=== PATIENT | female | born 1975 | race African-American/Black ===

== ENCOUNTER 2017-09-15 15:49 | Emergency (ER) | payer SELFPAY ==
[2017-09-15 16:27] LABS: Bilirubin Negative (Negative); Blood, Urine Negative (Negative); Glucose, Urine (Dipstick) >=1000 mg/dL (Negative); Ketone, Urine Negative (Negative); Nitrite Negative (Negative); Protein, Urine (Dipstick) Negative (Neg-Trace); Urobilinogen 0.2 mg/dL (0.2-1.0)
[2017-09-15 16:47] LABS: #Basophils 0.1 thou/uL (0.0-0.2); #Eosinphils 0.1 thou/uL (0.0-0.7); #Lymphocytes 3.4 thou/uL (1.20-3.40); #Monocytes 0.5 thou/uL (0.11-0.59); #Neutrophils 4.2 thou/uL (1.40-6.50); %Basophils 1.7 % (0.0-1.0); %Eosinophils 1.3 % (0.0-10.0); %Monocytes 5.5 % (0.0-10.0); Hematocrit 44.9 % (36.0-47.0); Mean Platelet Volume 8.3 fL (7.4-10.4); Red Blood Cell (RBC) Count 5.02 mill/uL (4.20-5.40); White Blood Cell (WBC) Count 8.2 thou/uL (4.8-10.8)
[2017-09-15 16:50] LABS: Anion Gap 10 mmol/L (-14-95); T. Carbon Dioxide 27.1 mmol/L (1.0-85.0); pH (Venous) 7.436 (7.35-7.45); vO2 Saturation-calc 84.3 % (0.0-100.0)
[2017-09-15 17:09] LABS: ALT (SGPT) 17 U/L (8-55); AST (SGOT) 12 U/L (5-34); Alkaline Phosphatase 106 U/L (40-150); Anion Gap 13 mmol/L (10-20); BUN (Urea Nitrogen) 7 mg/dL (7.0-18.7); Bilirubin, Total 0.4 mg/dL (0.2-1.2); Calc. Creatinine Clearance 0 mL/min (70-130); Calcium 9.3 mg/dL (7.8-10.44); Carbon Dioxide 25 mmol/L (22-29); Chloride 98 mmol/L (98-107); Estimated GFR-MDRD 85; Globulin 3.1 g/dL (2.4-3.5)
[2017-09-15] MEDS ORDERED: Insulin Regular 300 UNITS/3 ML VIAL ONE (17:19)
[2017-09-15] MEDS ORDERED: Acetaminophen 500 MG TAB ONE (18:28)
== END 2017-09-15 19:25 | disposition home or self-care (01) ==
LOC: ERS 15:49
DX: E11.65 Type 2 diabetes mellitus with hyperglycemia (principal); E86.0 Dehydration; I11.0 Hypertensive heart disease with heart failure; I50.9 Heart failure, unspecified; E11.40 Type 2 diabetes mellitus with diabetic neuropathy, unspecified; G43.909 Migraine, unspecified, not intractable, without status migrainosus; F41.9 Anxiety disorder, unspecified; F31.9 Bipolar disorder, unspecified; Z79.899 Other long term (current) drug therapy; Z79.84 Long term (current) use of oral hypoglycemic drugs
CPT/HCPCS: 36416; 80053; 81003; 81025; 82010; 82330; 82803; 85025; 96360; 96372; J1815

== ENCOUNTER 2017-11-15 18:54 | Observation (INO) | payer OTHER, SELFPAY ==
[2017-11-15 19:31] LABS: #Basophils 0.1 thou/uL (0.0-0.2); #Eosinphils 0.1 thou/uL (0.0-0.7); #Lymphocytes 4.1 thou/uL (1.20-3.40); #Monocytes 0.5 thou/uL (0.11-0.59); #Neutrophils 4.1 thou/uL (1.40-6.50); %Basophils 0.7 % (0.0-1.0); %Eosinophils 1.5 % (0.0-10.0); %Lymphocytes 46.2 % (21.0-51.0); %Monocytes 6.1 % (0.0-10.0); %Neutrophils 45.4 % (42.0-75.0); Mean Corpuscular HGB CONC 32.7 g/dL (32.0-36.0); Mean Corpuscular Hemoglobin 29.8 pg (27.0-31.0); Mean Corpuscular Volume 90.9 fl (81.0-99.0); Mean Platelet Volume 8.9 fL (7.4-10.4); Platelet Count 262 thou/uL (130-400); RBC Distribution Width 13.2 % (11.5-14.5); White Blood Cell (WBC) Count 8.9 thou/uL (4.8-10.8)
[2017-11-15 19:40] LABS: Bilirubin Negative (Negative); Blood, Urine Negative (Negative); Clarity CLEAR (Clear); Glucose, Urine (Dipstick) >=1000 mg/dL (Negative); Leukocyte Negative (Negative); Nitrite Negative (Negative); Protein, Urine (Dipstick) Negative (Neg-Trace); Specific Gravity, Urine 1.044 (1.002-1.036); Urobilinogen 0.2 mg/dL (0.2-1.0)
[2017-11-15 19:40] LABS: PTT 22.5 SEC (22.9-36.1)
[2017-11-15 19:47] LABS: ALT (SGPT) 11 U/L (8-55); AST (SGOT) 8 U/L (5-34); Albumin 3.6 g/dL (3.5-5.0); Alkaline Phosphatase 84 U/L (40-150); Anion Gap 12 mmol/L (10-20); BUN (Urea Nitrogen) 6 mg/dL (7.0-18.7); Bilirubin, Total 0.3 mg/dL (0.2-1.2); CK (CPK) 75 U/L (29-168); Calc. Creatinine Clearance 0 mL/min (70-130); Calcium 8.9 mg/dL (7.8-10.44); Carbon Dioxide 23 mmol/L (22-29); Chloride 101 mmol/L (98-107); Estimated GFR-MDRD 61; Globulin 2.5 g/dL (2.4-3.5); Glucose 529 mg/dL (70-105); Lipase 20 U/L (8-78); Potassium 4.1 mmol/L (3.5-5.1); Protein, Total 6.1 g/dL (6.0-8.3); Sodium 132 mmol/L (136-145)
[2017-11-15 19:53] LABS: CKMB 0.6 ng/mL (0-6.6)
[2017-11-15] MEDS ORDERED: Insulin Regular 300 UNITS/3 ML VIAL ONE (20:01)
[2017-11-15] MEDS ORDERED: Nitroglycerin 0.4 MG TAB (25 Tab Bottle) ONE (20:40)
[2017-11-15 22:43] VITALS: BMI 40.2
[2017-11-15 23:01] LABS: Troponin I Less than 0.010 ng/mL (< 0.028)
[2017-11-15] MEDS: Sodium Chloride 0.9% 1,000 ML IV SCH (23:48)
[2017-11-16] MEDS ORDERED: Dextrose 50% Abboject 50 ML SYRINGE SLOW IVP PRN (00:11)
[2017-11-16] MEDS ORDERED: Dextrose 5% in Water 1,000 ML IV PRN (00:11)
[2017-11-16] MEDS ORDERED: Ondansetron ODT 4 MG TAB PO PRN (00:11)
[2017-11-16] MEDS ORDERED: Nitroglycerin 0.4 MG TAB (25 Tab Bottle) PO PRN (00:12)
[2017-11-16 01:17] LABS: Hemoglobin A1c 13.3 % (4.0-6.0)
[2017-11-16 01:20] LABS: Lactic Acid 1.9 mmol/L (0.5-2.2)
[2017-11-16 01:37] LABS: Troponin I Less than 0.010 ng/mL (< 0.028)
[2017-11-16] MEDS: Sodium Chloride 0.9% 1,000 ML IV SCH ×4 (01:47→20:33)
--- NOTE | 2017-11-16 03:23 | HP-2 ---
CODE STATUS: FULL. PRIMARY CARE PHYSICIAN: Awais Jesus M.D. ATTENDING: Dr. Cesia Mckee RESIDENT: Kitty Hagen M.D. CHIEF COMPLAINT: Dizziness and lightheadedness. HISTORY OF PRESENT ILLNESS: This is a 42-year-old female with past medical history of diabetes, hype rtension, chronic kidney disease and hyperlipidemia who presented to the ED complaining of a rash on her thighs and elevated blood sugar. The patient was feeling lightheaded while she was lying down an d then she had a "blood pressure rincon" when she raised up her head. Her blood sugar was 46 at home. She had a really bad headache at that time. Her chest had been hurting since yesterday and she ran out of her nitro. She reported that her chest pain felt like needles. It was a sharp pain that woul d come and go and then today the pain would start in the center of her chest and radiate to her right shoulder and neck, felt like a tightening pain. The patient reported that she had a cath done 2 yea rs ago at the [facility]. She did not know exactly what they did, but reported t hey possibly did some dilation of her artery. She has not followed up with any outdoor illuminating engineer recently for this. In the ER, she was given 2 liters normal saline, nitroglycerin 0.4 mg sublingual, aspirin 324 mg and Humulin R 10 units IV push. PAST MEDICAL HISTORY: 1. Diabetes type 2. 2. Chronic kidney disease stage 3. 3. Hyperlipidemia. 4. Hypertension. 5. Peripheral neuropathy. 6. Chronic back pain. 7. Anxiety. 8. Bipolar disorder. PAST SURGICAL HISTORY: Hysterectomy, bilateral tubal ligation and cataract surgery. ALLERGIES: BACTRIM. MEDICATIONS: 1. Atorvastatin 40 mg p.o. at bedtime. 2. Spironolactone 25 mg 1 tablet daily. 3. Lisinopril/HCTZ 20/25 mg b.i.d. 4. Metoprolol succinate ER 100 mg daily. 5. Risperdal 2 mg b.i.d. 6. Doxepin, unknown dose. 7. Nitroglycerin 0.4 mg sublingual p.r.n. chest pain. 8. Neurontin 300 mg p.o. t.i.d. 9. Glimepiride 4 mg daily. 10. Tradjenta 5 mg daily. 11. Victoza 1.8 mg subcutaneously daily. 12. Lantus Solostar 60 units subcu every morning and 75 units subcu every evening. 13. Aspirin 81 mg daily. 14. Reglan 5 mg b.i.d. 15. Humalog sliding scale 10-15 units before meals. FAMILY HISTORY: Mom had lupus, kidney disease and pacemaker due to enlarged heart. Dad had diabetes . SOCIAL HISTORY: Used to smoke 10 years ago, would smoke about a pack a week for 3 years. She denies alcohol or drug use. REVIEW OF SYSTEMS: GENERAL: Negative for fever, chills, weight changes. EYES: Positive for vision changes. Reports seeing circles. Negative for eye pain. ENT: Negative for rhinorrhea, sore throat. RESPIRATORY: Negative for cough, positive for shortness of breath. CARDIOVASCULAR: Positive for chest pain, palpitations. Negative for edema. GI: Negative for nausea, vomiting. Positive for diarrhea. Negative for abdominal pain. GENITOURINARY: Negative for dysuria. Positive for polyuria. SKIN: Positive for rashes and itching. MUSCULOSKELETAL: Positive for pain. Negative for tenderness. NEUROLOGIC: Negative for weakness. Positive for numbness in her legs. ENDOCRINE: Positive for polyuria and polydipsia. PSYCHIATRIC: Positive for anxiety. PHYSICAL EXAMINATION: VITAL SIGNS: Blood pressure 135/74, pulse 112, respiratory rate 18, temperature 98.5, pulse ox 98% o n room air, current weight 99.8 kilograms. GENERAL: Alert and oriented x3, no acute distress, obese, appropriately interactive. HEENT: PERRLA. Extraocular muscles intact. Conjunctivae within normal limits. ENT: Nasal mucosa within normal limits. Oropharynx within normal limits. Poor dentition. NECK: Supple, no lymphadenopathy. Acanthosis nigricans. CARDIOVASCULAR: Regular rate and rhythm, no murmurs, gallops, 2+ radial and pedal pulses. Chest pa in reproducible on palpation. RESPIRATORY: Normal effort, no retractions. Clear to auscultation bilaterally. SKIN: Warm, dry. No cyanosis. Positive for lesions, multiple annular lesions on abdomen and dry pa tches on the medial surface of both thighs. ABDOMEN: Soft, nontender to palpation. Normoactive bowel sounds. No masses or distention. EXTREMITIES: No cyanosis or edema. MUSCULOSKELETAL: Structure and tone within normal limits. Full range of motion. NEUROLOGICAL: No focal deficits. Sensation within normal limits. PSYCHIATRIC: Appropriate. LABORATORY DATA: WBC 8.9, hemoglobin 14.0, hematocrit 42.7, platelets 262. Sodium 132 corrected to 139, potassium 4.1, chloride 101, CO2 23, BUN 6, creatinine 1.18, GFR 61, glucose 529, calcium 8.9, t otal bilirubin 0.3, AST 8, ALT 11, alkaline phosphatase 84, total protein 6.1, albumin 3.6. PT 13.0, INR 1.0, PTT 22.5. Lactic acid 3.2. CK 75, CK-MB 0.6, troponin less than 0.01. Lipase 20. Urinal ysis showed greater than 1000 glucose. EKG showed normal sinus rhythm. ASSESSMENT AND PLAN: This is a 42-year-old female who presents with: 1. Atypical chest pain. The patient has a heart score of 2. She reports a history of heart cath 2 years ago, but unable to get records at this time. Due to this history will be conservative and do a stress test. Treat her with aspirin and nitro as needed. We will check fasting lipid panel. Trend troponins. We will monitor on tele. Repeat EKG for any new or worsening chest pain. 2. Hyperglycemia. Initial glucose of 529. The patient reports skipping 4 doses of insulin this pas t week, her blood sugars greater than 300 consistently. She lost her Medicaid and did not have any f ollow up with PCP. We will check A1c and optimize her insulin regimen for the patient's financial st atus. We will start with half a dose of the patient's Levemir with having the patient n.p.o. for str ess test. Sliding scale insulin and Accu-Cheks a.c. and at bedtime, consistent carbohydrate diet aft er stress test. 3. Elevated lactic acid, likely secondary to dehydration from hyperglycemia, status post 2 liters fl uid bolus, will give normal saline at 125, recheck lactic acid. 4. Tinea corporis. We will start antifungal cream and monitor. 5. Chronic kidney disease 3, stable. We will monitor. 6. Hypertension. Continue home medications. 7. Hyperlipidemia. We will check fasting lipid panel. Continue home medications. 8. Anxiety. Continue home medications. 9. Bipolar. Continue home medications. 10. Diabetes type 2. See #2. 11. VT prophylaxis. Lovenox. DISPOSITION/LENGTH OF HOSPITAL STAY: Observation on telemetry. Symptomatic medication will be provided. History and physical exam as well as management discussed with Dr. Mckee.
[2017-11-16 05:40] LABS: Anion Gap 9 mmol/L (10-20); BUN (Urea Nitrogen) 10 mg/dL (7.0-18.7); Calc. Creatinine Clearance 187 mL/min (70-130); Calcium 8.2 mg/dL (7.8-10.44); Carbon Dioxide 22 mmol/L (22-29); Cardiac Risk 4.2 (Less than 4.5); Chloride 108 mmol/L (98-107); Cholesterol 146 mg/dl (< 200 Desired); Estimated GFR-MDRD Greater than 90; Glucose 305 mg/dL (70-105); HDL Cholesterol 35 mg/dL (>60 Neg Risk); LDL Cholesterol, Calculated 96 mg/dL; Potassium 3.9 mmol/L (3.5-5.1); Sodium 135 mmol/L (136-145); Triglycerides 75 mg/dL (Less than 150)
[2017-11-16] MEDS: Glimepiride 4 MG TAB PO SCH (08:55)
[2017-11-16] MEDS: Spironolactone 25 MG TAB PO SCH (08:55)
[2017-11-16] MEDS: Aspirin 81 mg Enteric Coated Tablet PO SCH (08:56)
[2017-11-16] MEDS: Alogliptin 25 MG TAB PO SCH (08:56)
[2017-11-16] MEDS: Clotrimazole 1 % Cream 30 GM TUBE TOP SCH ×2 (08:56→20:31)
[2017-11-16] MEDS: Gabapentin 300 MG CAP PO SCH ×3 (08:56→20:27)
[2017-11-16] MEDS: Enoxaparin Sodium 40 MG/0.4 ML SYRINGE SC SCH (08:56)
[2017-11-16] MEDS: Atorvastatin Calcium 40 MG TAB PO SCH (08:56)
[2017-11-16] MEDS: Metoclopramide HCl 10 MG TAB PO SCH ×2 (08:57→20:29)
[2017-11-16] MEDS: Lisinopril/Hydrochlorothiazide 20/25 mg Tablet PO SCH ×2 (08:57→20:30)
[2017-11-16] MEDS: risperiDONE 1 MG TAB PO SCH ×2 (08:57→20:28)
[2017-11-16] MEDS ORDERED: Insulin Detemir 100 UNITS/ML 30 UNITS in Admixture Fee 1 EACH SC SCH (09:00)
[2017-11-16] MEDS ORDERED: Liraglutide [Victoza] 1.8 MG SC SCH (09:00)
[2017-11-16] MEDS: HumaLOG 300 UNITS/3 ML VIAL SC PRN ×2 (13:22→17:02)
--- NOTE | 2017-11-16 13:59 | NM ---
RADIONUCLIDE STRESS ONLY MYOCARDIAL PERFUSION SCAN WITH CT ATTENUATION CORRECTION AND SPECT IMAGING LEFT VENTRICULAR WALL MOTION EVALUATION AND EJECTION FRACTION: History: Chest pain. FINDINGS: Adenosine protocol was used. There is heterogeneous uptake of radiotracer throughout the left ventric ular myocardium. No focal perfusion defect is evident. QGS analysis of gated SPECT images shows some dyskinetic motion of the proximal inferior wall and the distal anterior wall. Ejection fraction is ca lculated 50%. IMPRESSION: 1. No scintigraphic evidence of myocardial ischemia. 2. Borderline ejection fraction of 50%. POS: [facility]
[2017-11-16] MEDS ORDERED: Regadenoson 0.4 MG/5 ML SYRINGE ONE (16:25)
[2017-11-16] MEDS ORDERED: Ibuprofen 800 MG TAB PO PRN (19:22)
[2017-11-16] MEDS ORDERED: Insulin NPH/Reg Insulin Hm 300 UNITS/3 ML VIAL SC SCH (21:00)
[2017-11-16] MEDS ORDERED: Insulin Detemir 100 UNITS/ML 45 UNITS in Admixture Fee 1 EACH SC SCH (21:00)
[2017-11-17] MEDS: Sodium Chloride 0.9% 1,000 ML IV SCH (04:47)
[2017-11-17] MEDS: HumaLOG 300 UNITS/3 ML VIAL SC PRN ×2 (05:33→18:08)
--- NOTE | 2017-11-17 06:09 | PDOC.FM ---
- Subjective Subjective: Patient states she feels good. She denies any further chest pain or sob. She states her blurry vision is greatly improved. She is urinating normally, but hasn't had a BM today. She denies n/v/d, cough, fever. She has been up and walking around. She lost her insurance and so she is in the middle of a transition of insulin that she can afford. She has had glucose running in the 200s and has been asymptomatic. No other concerns. - Objective Vital Signs & Weight: Vital Signs (12 hours) Temp Pulse Resp BP Pulse Ox 11/17/17 04:10 98.2 F 68 16 130/80 95 11/16/17 23:28 98.0 F 74 18 122/75 95 11/16/17 20:30 72 11/16/17 19:25 98.4 F 72 18 11/16/17 19:00 98.4 F 72 18 114/64 96 Weight Weight 120.928 kg I&O: 11/15/17 11/16/17 11/17/17 06:59 06:59 06:59 Intake Total 900 3240 Output Total 1300 Balance 900 1940 Result Diagrams: 11/15/17 19:15 11/17/17 05:28 <Master Pickering - Last Filed: 11/17/17 08:33> - Objective Vital Signs & Weight: Weight Weight 121.109 kg I&O: 11/19/17 11/20/17 11/21/17 06:59 06:59 06:59 Intake Total 480 Balance 480 Result Diagrams: 11/15/17 19:15 11/18/17 04:17 <Cesia Mckee - Last Filed: 11/20/17 15:15> Phys Exam - Physical Examination HEENT: PERRLA, moist MMs Neck: no nodes, no JVD Respiratory: no wheezing, clear to auscultation bilateral Cardiovascular: RRR, no significant murmur Gastrointestinal: soft, non-tender, no distention, positive bowel sounds Musculoskeletal: no edema Neurological: non-focal, normal sensation, moves all 4 limbs Lymphatic: no nodes Psychiatric: normal affect, A&O x 3 Skin: no rash <Master Pickering - Last Filed: 11/17/17 08:33> Dx/Plan (1) Atypical chest pain Code(s): R07.89 - OTHER CHEST PAIN Status: Acute (2) Hyperglycemia due to type 2 diabetes mellitus Code(s): E11.65 - TYPE 2 DIABETES MELLITUS WITH HYPERGLYCEMIA Status: Acute (3) Tinea corporis Code(s): B35.4 - TINEA CORPORIS Status: Acute (4) HTN (hypertension) Code(s): I10 - ESSENTIAL (PRIMARY) HYPERTENSION Status: Acute (5) HLD (hyperlipidemia) Code(s): E78.5 - HYPERLIPIDEMIA, UNSPECIFIED Status: Acute (6) Schizophrenia Code(s): F20.9 - SCHIZOPHRENIA, UNSPECIFIED Status: Acute - Plan Plan: 1. Atypical Chest Pain - Normal Stress test - Pain resolved - Troponins negative - Will repeat EKG if symptomatic 2. DM2 uncontrolled - Accuchecks - Switching from home insulin to 70/30 due to cost - Sugars running in 200s, increased dose to 70 units BID - Continue other home meds - SSI - HgbA1c 13.3 3. Tinea corporis - Clotrimazole cream 4. HTN - Continue home meds - BP under good control 5. HLD - Continue statin 6. Schizophrenia - Under good control - Continue risperidone Disposition: Stable. Will titrate 70/30 insulin and patient will be ready for discharge. <Master Pickering - Last Filed: 11/17/17 08:33> Attending Addendum - Attending Addendum I personally evaluated the patient and discussed the management with Dr. Pickering on 11/17/17. I agree with the History, Examination, Assessment and Plan documented above with any addition or exceptions noted below- Patient without complaints. Feeling better. Afebrile VSS. A/P: 1) DM with hyperglycemia- BG under better control. Insulin adjusted. Discussed need for follow-up pending her insurance renewal and information given for H4A. 2) HTN- better control; 3) Atypical chest pain- stress test negative. Probable D/c home in AM after BG under better control and no evidence of hypoglycemia. <Cesia Mckee - Last Filed: 11/20/17 15:15>
[2017-11-17 06:10] LABS: Anion Gap 10 mmol/L (10-20); BUN (Urea Nitrogen) 13 mg/dL (7.0-18.7); Calc. Creatinine Clearance 186 mL/min (70-130); Calcium 8.8 mg/dL (7.8-10.44); Carbon Dioxide 21 mmol/L (22-29); Chloride 110 mmol/L (98-107); Estimated GFR-MDRD Greater than 90; Glucose 263 mg/dL (70-105); Potassium 3.8 mmol/L (3.5-5.1); Sodium 137 mmol/L (136-145)
[2017-11-17] MEDS: Clotrimazole 1 % Cream 30 GM TUBE TOP SCH ×2 (08:47→21:18)
[2017-11-17] MEDS: risperiDONE 1 MG TAB PO SCH ×2 (08:48→21:15)
[2017-11-17] MEDS: Metoclopramide HCl 10 MG TAB PO SCH ×2 (08:49→21:15)
[2017-11-17] MEDS: Atorvastatin Calcium 40 MG TAB PO SCH (08:49)
[2017-11-17] MEDS: Gabapentin 300 MG CAP PO SCH ×3 (08:49→21:15)
[2017-11-17] MEDS: Aspirin 81 mg Enteric Coated Tablet PO SCH (08:49)
[2017-11-17] MEDS: Glimepiride 4 MG TAB PO SCH (08:49)
[2017-11-17] MEDS: Spironolactone 25 MG TAB PO SCH (08:50)
[2017-11-17] MEDS: Enoxaparin Sodium 40 MG/0.4 ML SYRINGE SC SCH (08:52)
[2017-11-17] MEDS: Lisinopril/Hydrochlorothiazide 20/25 mg Tablet PO SCH ×2 (08:53→21:15)
[2017-11-17] MEDS ORDERED: Insulin NPH/Reg Insulin Hm 300 UNITS/3 ML VIAL SC SCH (09:00)
[2017-11-17] MEDS ORDERED: METOPROLOL SUCCINATE 100 MG PO SCH (09:00)
[2017-11-17] MEDS: Alogliptin 25 MG TAB PO SCH (09:07)
--- NOTE | 2017-11-17 11:22 | PDOC.EVN ---
Event Note - Event Note Event Note: I personally evaluated the patient and discussed the management with Dr. Hagen on 11/16/17. I agree with the history, exam, assessment and plan as documented by the resident. Briefly this is a 42 year old BF with h/o Type 2 DM, HTN, HLD, CKD stage 2 who presented c/o rash on her thighs and elevated BG. She also had episode of sharp chest pain that radiated to her right shoulder. H/o cath 2 years ago- no stents. PE: T98.5 P112 BP 135/74 RR 18 Lungs- CTA b/l CV- RRR, no murmur Abd- soft, nt/nd Ext: no edema Labs: Gluc 529 Na 132 corrected 139 Cr 1.18 EKG- NSR no ST changes A/P: 1) Atypical chest pain with risk factors - continue serial cardiac enzymes - plan for stress test 2) Uncontrolled DM - start on insulin and titrate as needed\ - Case management for medication assistance 3) HTN- continue home meds
[2017-11-17] MEDS: Insulin NPH/Reg Insulin Hm 300 UNITS/3 ML VIAL SC SCH (21:16)
[2017-11-18] MEDS: HumaLOG 300 UNITS/3 ML VIAL SC PRN ×2 (05:30→11:43)
--- NOTE | 2017-11-18 05:50 | PDOC.FM ---
- Subjective Subjective: No significant overnight events. Patient doing well this AM. Plan is to continue titrating insulin. Informed patient that she would need to continue titration as an outpatient. Patient approved for financial assistance. - Objective MAR Reviewed: Yes Vital Signs & Weight: Vital Signs (12 hours) Temp Pulse Resp BP BP Pulse Ox 11/18/17 04:00 98.1 F 64 18 127/67 95 11/17/17 21:30 97.8 F 63 16 11/17/17 21:15 63 11/17/17 20:10 97.8 F 63 16 135/87 97 Weight Weight 121.109 kg I&O: 11/16/17 11/17/17 11/18/17 06:59 06:59 06:59 Intake Total 900 3240 1780 Output Total 1300 Balance 900 1940 1780 Result Diagrams: 11/15/17 19:15 11/18/17 04:17 EKG Reviewed by me: No Radiology Reviewed by me: No Phys Exam - Physical Examination Constitutional: NAD HEENT: moist MMs Neck: supple Respiratory: no wheezing, no rales, no rhonchi, clear to auscultation bilateral Cardiovascular: RRR, no significant murmur Gastrointestinal: soft, non-tender, no distention, positive bowel sounds Musculoskeletal: pulses present Neurological: non-focal, moves all 4 limbs Psychiatric: normal affect Skin: no rash, cap refill <2 seconds Dx/Plan (1) Atypical chest pain Code(s): R07.89 - OTHER CHEST PAIN Status: Resolved (2) HLD (hyperlipidemia) Code(s): E78.5 - HYPERLIPIDEMIA, UNSPECIFIED Status: Chronic (3) HTN (hypertension) Code(s): I10 - ESSENTIAL (PRIMARY) HYPERTENSION Status: Chronic Qualifiers: Hypertension type: essential hypertension Qualified Code(s): I10 - Essential (primary) hypertension (4) Hyperglycemia due to type 2 diabetes mellitus Code(s): E11.65 - TYPE 2 DIABETES MELLITUS WITH HYPERGLYCEMIA Status: Chronic Qualifiers: Diabetes mellitus manager terminal insulin use: with intermediate use Qualified Code( s): E11.65 - Type 2 diabetes mellitus with hyperglycemia; Z79.4 - terminal gauger ( current) use of insulin; Z79.4 - terminal gauger (current) use of insulin; Z79.4 - terminal gauger (current) use of insulin; Z79.4 - FPC (current) use of insulin (5) Schizophrenia Code(s): F20.9 - SCHIZOPHRENIA, UNSPECIFIED Status: Chronic Qualifiers: Schizophrenia type: unspecified Qualified Code(s): F20.9 - Schizophrenia, unspecified (6) Tinea corporis Code(s): B35.4 - TINEA CORPORIS Status: Acute - Plan Plan: 1. Atypical Chest Pain - Normal Stress test - Pain resolved - Troponins negative x3 - Will repeat EKG if symptomatic 2. DM2, uncontrolled - Accuchecks - Switched home insulin to 70/30 due to cost - Sugars running in 200s, switched from 50 U BID to 70 U BID, and patient BG dropped into 70's; switched back to 50 U BID - Will increase insulin 70/30 to 55 U BID - Required 15 U of aggressive SSI yesterday - Continue other home meds - SSI - HgbA1c 13.3 - Continue to titrate with ideal goal <200 - Continue OSBALDO-I, ASA, Statin - Patient will continue to need titration as outpatient 3. Tinea corporis - Clotrimazole cream 4. HTN - Continue home meds - BP under good control 5. HLD - Continue statin 6. Schizophrenia - Under good control - Continue risperidone Disposition: Stable. Will titrate 70/30 insulin. Plan to d/c home today with follow up as outpatient for continued titration.
[2017-11-18 05:58] LABS: Anion Gap 11 mmol/L (10-20); BUN (Urea Nitrogen) 11 mg/dL (7.0-18.7); Calc. Creatinine Clearance 179 mL/min (70-130); Calcium 9.1 mg/dL (7.8-10.44); Carbon Dioxide 25 mmol/L (22-29); Chloride 106 mmol/L (98-107); Estimated GFR-MDRD Greater than 90; Glucose 229 mg/dL (70-105); Potassium 3.5 mmol/L (3.5-5.1); Sodium 138 mmol/L (136-145)
[2017-11-18] MEDS: Lisinopril/Hydrochlorothiazide 20/25 mg Tablet PO SCH (09:48)
[2017-11-18] MEDS: Spironolactone 25 MG TAB PO SCH (09:49)
[2017-11-18] MEDS: Atorvastatin Calcium 40 MG TAB PO SCH (09:49)
[2017-11-18] MEDS: Metoclopramide HCl 10 MG TAB PO SCH (09:49)
[2017-11-18] MEDS: Enoxaparin Sodium 40 MG/0.4 ML SYRINGE SC SCH (09:50)
[2017-11-18] MEDS: Gabapentin 300 MG CAP PO SCH (09:50)
[2017-11-18] MEDS: Aspirin 81 mg Enteric Coated Tablet PO SCH (09:50)
[2017-11-18] MEDS: Glimepiride 4 MG TAB PO SCH (09:50)
[2017-11-18] MEDS: Insulin NPH/Reg Insulin Hm 300 UNITS/3 ML VIAL SC SCH (09:51)
[2017-11-18] MEDS: Clotrimazole 1 % Cream 30 GM TUBE TOP SCH (09:51)
[2017-11-18] MEDS: risperiDONE 1 MG TAB PO SCH (09:52)
[2017-11-18] MEDS: Alogliptin 25 MG TAB PO SCH (09:59)
[2017-11-18] MEDS ORDERED: Polyethylene Glycol 3350 17 GM Packet PO PRN (10:16)
[2017-11-18 11:37] VITALS: BP 122/71; TEMP 97.7
[2017-11-18] MEDS ORDERED: Insulin NPH/Reg Insulin Hm 300 UNITS/3 ML VIAL SC SCH (21:00)
--- NOTE | 2017-11-18 22:17 | ADD-PRG ---
ADDENDUM DATE OF SERVICE: 11/18/2017 Please see note from Dr. Malik for which I concur. A 42-year-old here for chest pain and abnorma l stress test, really just monitoring for hyperglycemia as an outpatient, but did not want to b e too aggressive and make her hypoglycemic because the 70 units twice daily yesterday did that, but o therwise, psych-gordon, she is well controlled on current medicines normal stress test. The becky ent was seen and evaluated and discussed with the resident.
--- NOTE | 2017-11-18 23:40 | DIS-2 ---
DATE OF ADMISSION: 11/15/2017 DATE OF DISCHARGE: 11/18/2017 RESIDENT: Dr. Pickering. ADMITTING ATTENDING: Dr. Mckee. DISCHARGE ATTENDING: Dr. Ricketts. CONSULTATIONS: None. PROCEDURES: The patient underwent a stress test, nuclear medicine test on 11/16 that showed no scintigraphic evidence of myocardial ischemia. Borderline ejection fraction of 50%. PRIMARY DIAGNOSES: 1. Atypical chest pain. 2. Hyperglycemia and diabetes mellitus type 2. 3. Hyperlipidemia. 4. Hypertension. 5. Tinea corporis. 6. Schizophrenia. DISCHARGE MEDICATIONS: 1. Lisinopril/HCTZ 20/25 mg 1 tab p.o. b.i.d. 2. Spironolactone 25 mg daily. 3. Glimepiride 4 mg p.o. q.a.m. with meals. 4. Risperidone 2 mg p.o. b.i.d. 5. Reglan 5 mg p.o. b.i.d. 6. Aspirin 81 mg. 7. Tradjenta 5 mg p.o. daily. 8. Nitroglycerin 0.4 mg tab sublingual. 9. Atorvastatin 40 mg daily. 10. Metoprolol succinate 100 mg p.o. daily. 11. Gabapentin 300 mg p.o. t.i.d. 12. Lotrimin 1% cream. 13. Humulin 70/30. 14. Lantus. DISCONTINUED MEDICATIONS: 1. Victoza 1.8 mg subcutaneously daily. 2. Olanzapine 10 mg p.o. at bedtime. 3. Humalog 10 units SC and insulin glargine or Lantus 75 units SC daily. HISTORY OF PRESENT ILLNESS AND HOSPITAL COURSE: This is a 42-year-old female with past medical history of diabetes, hypertension, chronic kidney disease, and hyperlipidemia who presented to the ED, complains of rash on her thighs and elevated blood sugar. The patient was feeling lightheaded while she was lying down and then she had a blood pressure rincon when she was raised up to her head. Blood sugar was 46 at home. She was then had a really bad headache at that time as well. Her chest has been hurting since yesterday and she ran out of her nitro. She reports that her chest pain felt like needles. It was sharp pain that would come and go and today the pain would start in the center of her chest and radiates to her right shoulder and neck, felt like tightening pain. The patient reports she had a catheterization done 2 years ago at [facility]. She did not know exactly what they did, but reported they possibly did some dilatation of her artery. She has not followed up with conveyancer recently for this. In the ER, she was given 2 liters normal saline , nitroglycerin 0.4 mg sublingual, aspirin 324 mg and Humulin R 10 units IV push. During this hospitalization, the patient had some of the lab values, hemoglobin A1c of 13.3. Urine glucose greater than 1000 and her blood sugars ranged from 388 down to 253 with a low of 78 one time during the hospitalization. The patient did also recently state that her insurance is changing so she will no longer be able to afford her Lantus insulin and so at that time it was decided that she need to be changed over to insulin 70/30 for cost reasons and also, during this hospitalization, she underwent a stress test that came back normal with no reversible ischemia present and her chest pain resolved spontaneously as well. She further denied any further chest pain, shortness of breath, but she did complain of some dizziness and blurry vision; however, that was attributed to the blood sugar. Her blood sugar levels being out of control and then being reduced with her insulin. She also stated that she had a long history of having some lower blood sugar readings at home having some lows at home. While she has been hospitalized, she was very difficult to control on insulin regimen and did not get good control while in the hospital. This will take some great outpatient followup to further titrate her insulin needs and to work on her diet with some exercise and weight loss as well. The patient also had a rash that look like a tinea corporis and so she was given some Lotrimin cream for that and to be followed up as an outpatient. The patient otherwise has had no other complications during this hospitalization. Discharged in appropriate condition. DISPOSITION: Stable. DISCHARGE INSTRUCTIONS: 1. Location: To be discharged home in the care of herself. 2. Diet will be a Diabetic diet and heart healthy diet. 3. Activity will be as tolerated with no restrictions. 4. Follow up will be with the [facility] in the next week, we discussed the further management of her chronic conditions. The patient has recently lost her insurance and she is trying to get back insurance, so that she can reestablish with [facility] going forward. We wish this patient the best of luck and hope she had no further complications from this. STALIN
== END 2017-11-18 13:45 | disposition home or self-care (01) ==
LOC: ERS 18:54 → 2SW 22:10
PROVIDERS: ADMIT Emergency Medicine; ATTEND Emergency Medicine
DX: R07.89 Other chest pain (principal); E11.65 Type 2 diabetes mellitus with hyperglycemia; E11.22 Type 2 diabetes mellitus with diabetic chronic kidney disease; I12.9 Hypertensive chronic kidney disease with stage 1 through stage 4 chronic kidney disease, or unspecified chronic kidney disease; N18.3 Chronic kidney disease, stage 3 (moderate); E78.5 Hyperlipidemia, unspecified; B35.4 Tinea corporis; F20.9 Schizophrenia, unspecified; E11.42 Type 2 diabetes mellitus with diabetic polyneuropathy; M54.9 Dorsalgia, unspecified; G89.29 Other chronic pain; F41.9 Anxiety disorder, unspecified; F31.9 Bipolar disorder, unspecified; R74.0 Nonspecific elevation of levels of transaminase and lactic acid dehydrogenase [LDH]; Z79.82 Long term (current) use of aspirin; Z79.84 Long term (current) use of oral hypoglycemic drugs; Z79.899 Other long term (current) drug therapy; Z88.1 Allergy status to other antibiotic agents; Z88.2 Allergy status to sulfonamides; Z98.51 Tubal ligation status; Z98.49 Cataract extraction status, unspecified eye; Z90.710 Acquired absence of both cervix and uterus; Z87.891 Personal history of nicotine dependence
CPT/HCPCS: 36415; 36416; 78452; 80048; 80053; 80061; 81003; 82550; 82553; 83036; 83605; 83690; 84443; 84484; 85025; 85610; 85730; 93005; 93017; 94760; 96361; 96372; 96374; A4216; A9500; G0378; J1650; J1815; J2785; Q0162

== ENCOUNTER 2017-11-20 11:02 | Emergency (ER) | payer OTHER, SELFPAY ==
[2017-11-20 11:44] LABS: #Basophils 0.1 thou/uL (0.0-0.2); #Eosinphils 0.1 thou/uL (0.0-0.7); #Lymphocytes 2.8 thou/uL (1.20-3.40); #Monocytes 0.5 thou/uL (0.11-0.59); #Neutrophils 3.5 thou/uL (1.40-6.50); %Eosinophils 1.4 % (0.0-10.0); %Lymphocytes 40.2 % (21.0-51.0); %Monocytes 6.9 % (0.0-10.0); %Neutrophils 49.4 % (42.0-75.0); Hemoglobin 14.1 g/dL (12.0-16.0); Mean Corpuscular HGB CONC 32.5 g/dL (32.0-36.0); Mean Corpuscular Hemoglobin 29.4 pg (27.0-31.0); Mean Corpuscular Volume 90.4 fl (81.0-99.0); Mean Platelet Volume 8.3 fL (7.4-10.4); Platelet Count 228 thou/uL (130-400); RBC Distribution Width 13.2 % (11.5-14.5)
[2017-11-20 12:09] LABS: ALT (SGPT) 21 U/L (8-55); AST (SGOT) 16 U/L (5-34); Albumin 3.6 g/dL (3.5-5.0); Alkaline Phosphatase 81 U/L (40-150); Anion Gap 12 mmol/L (10-20); BUN (Urea Nitrogen) 10 mg/dL (7.0-18.7); Bilirubin, Total 0.6 mg/dL (0.2-1.2); CK (CPK) 79 U/L (29-168); Calc. Creatinine Clearance 0 mL/min (70-130); Calcium 9.1 mg/dL (7.8-10.44); Carbon Dioxide 25 mmol/L (22-29); Chloride 103 mmol/L (98-107); Estimated GFR-MDRD Greater than 90; Globulin 2.5 g/dL (2.4-3.5); Glucose 266 mg/dL (70-105); Potassium 4.1 mmol/L (3.5-5.1); Protein, Total 6.1 g/dL (6.0-8.3); Sodium 136 mmol/L (136-145)
[2017-11-20 12:18] LABS: CKMB 0.8 ng/mL (0-6.6); Troponin I 0.015 ng/mL (< 0.028)
[2017-11-20] MEDS ORDERED: Acetaminophen/Codeine 30-300mg Tablet ONE (12:23)
--- NOTE | 2017-12-09 16:10 | EKG ---
Test Reason : Blood Pressure : / mmHG Vent. Rate : 068 BPM Atrial Rate : 068 BPM P-R Int : 132 ms QRS Dur : 084 ms QT Int : 396 ms P-R-T Axes : 044 020 022 degrees QTc Int : 421 ms Normal sinus rhythm Normal ECG Confirmed by LAWRENCE JENKINS M.D. ([id number]), society editor DYANA FREITAS ([id number] on 12/09/2017 4:09:40 PM Referred By: Confirmed By:LAWRENCE JENKINS M.D.
== END 2017-11-20 13:04 | disposition home or self-care (01) ==
LOC: ERS 11:02
DX: E11.65 Type 2 diabetes mellitus with hyperglycemia (principal); I11.0 Hypertensive heart disease with heart failure; I50.9 Heart failure, unspecified; G43.909 Migraine, unspecified, not intractable, without status migrainosus; F20.9 Schizophrenia, unspecified; E11.40 Type 2 diabetes mellitus with diabetic neuropathy, unspecified; F41.9 Anxiety disorder, unspecified; F31.9 Bipolar disorder, unspecified; Z79.899 Other long term (current) drug therapy
CPT/HCPCS: 36416; 80053; 82010; 82550; 82553; 83880; 84484; 85025; 93005; 96360; 96361

== ENCOUNTER 2017-11-25 20:13 | Emergency (ER) | payer OTHER, SELFPAY ==
[2017-11-25 21:22] LABS: ALT (SGPT) 14 U/L (8-55); AST (SGOT) 9 U/L (5-34); Albumin 3.7 g/dL (3.5-5.0); Alkaline Phosphatase 89 U/L (40-150); Anion Gap 14 mmol/L (10-20); BUN (Urea Nitrogen) 9 mg/dL (7.0-18.7); Bilirubin, Total 0.3 mg/dL (0.2-1.2); Calc. Creatinine Clearance 0 mL/min (70-130); Calcium 9.4 mg/dL (7.8-10.44); Carbon Dioxide 22 mmol/L (22-29); Chloride 103 mmol/L (98-107); Estimated GFR-MDRD 71; Globulin 2.8 g/dL (2.4-3.5); Glucose 389 mg/dL (70-105); Potassium 4.1 mmol/L (3.5-5.1); Protein, Total 6.5 g/dL (6.0-8.3); Sodium 135 mmol/L (136-145)
[2017-11-25 21:25] LABS: #Basophils 0.1 thou/uL (0.0-0.2); #Eosinphils 0.2 thou/uL (0.0-0.7); #Lymphocytes 3.5 thou/uL (1.20-3.40); #Monocytes 0.5 thou/uL (0.11-0.59); #Neutrophils 3.6 thou/uL (1.40-6.50); %Eosinophils 2.2 % (0.0-10.0); %Lymphocytes 44.5 % (21.0-51.0); %Monocytes 6.5 % (0.0-10.0); %Neutrophils 45.9 % (42.0-75.0); Hemoglobin 13.3 g/dL (12.0-16.0); Mean Corpuscular HGB CONC 33.3 g/dL (32.0-36.0); Mean Corpuscular Hemoglobin 30.1 pg (27.0-31.0); Mean Corpuscular Volume 90.2 fl (81.0-99.0); Mean Platelet Volume 9.9 fL (7.4-10.4); Platelet Count 178 thou/uL (130-400); RBC Distribution Width 12.8 % (11.5-14.5); Red Blood Cell (RBC) Count 4.43 mill/uL (4.20-5.40); White Blood Cell (WBC) Count 7.9 thou/uL (4.8-10.8)
[2017-11-25] MEDS ORDERED: Insulin Regular 300 UNITS/3 ML VIAL ONE (21:56)
[2017-11-25 23:03] LABS: Bilirubin Negative (Negative); Blood, Urine Negative (Negative); Clarity CLEAR (Clear); Glucose, Urine (Dipstick) >=1000 mg/dL (Negative); Leukocyte Negative (Negative); Nitrite Negative (Negative); Protein, Urine (Dipstick) Negative (Neg-Trace); Specific Gravity, Urine 1.041 (1.002-1.036); Urobilinogen 0.2 mg/dL (0.2-1.0); pH, Urine 5.5 (5.0-9.0)
== END 2017-11-25 23:24 | disposition home or self-care (01) ==
LOC: ERS 20:13
DX: E11.65 Type 2 diabetes mellitus with hyperglycemia (principal); I11.0 Hypertensive heart disease with heart failure; I50.9 Heart failure, unspecified; E11.40 Type 2 diabetes mellitus with diabetic neuropathy, unspecified; G43.909 Migraine, unspecified, not intractable, without status migrainosus; F20.9 Schizophrenia, unspecified; F41.9 Anxiety disorder, unspecified; F31.9 Bipolar disorder, unspecified
CPT/HCPCS: 36415; 36416; 80053; 81003; 82010; 82947; 85025; 96372; J1815

== ENCOUNTER 2018-01-10 14:34 | Emergency (ER) | payer OTHER, SELFPAY ==
[2018-01-10 14:54] LABS: Base Excess-Venous -2.1 mmol/L (0 (+/- 2.5)); CO2 Tension (PvCO2) 39.6 mmHg (41.0-51.0); Calcium, Ionized 1.12 mmol/L (1.12-1.32); Hemoglobin - Calc 15.5 g/dL (12.0-18.0); O2 Tension (PvO2) 45.1 mmHg (35.0-45.0); Potassium 4.2 mmol/L (3.4-4.7); T. Carbon Dioxide 24.2 mmol/L (1.0-85.0); pH (Venous) 7.372 (7.35-7.45); vO2 Saturation-calc 79.7 % (94-98)
[2018-01-10 15:17] LABS: #Basophils 0.1 thou/uL (0.0-0.2); #Eosinphils 0.1 thou/uL (0.0-0.7); #Lymphocytes 3.8 thou/uL (1.20-3.40); #Monocytes 0.5 thou/uL (0.11-0.59); #Neutrophils 3.9 thou/uL (1.40-6.50); %Basophils 1.2 % (0.0-1.0); %Eosinophils 1.6 % (0.0-10.0); %Monocytes 6.3 % (0.0-10.0); %Neutrophils 45.9 % (42.0-75.0); Hemoglobin 14.6 g/dL (12.0-16.0); Mean Corpuscular HGB CONC 32.5 g/dL (32.0-36.0); Mean Corpuscular Hemoglobin 28.8 pg (27.0-31.0); Mean Corpuscular Volume 88.8 fl (81.0-99.0); Mean Platelet Volume 8.1 fL (7.4-10.4); Platelet Count 277 thou/uL (130-400); RBC Distribution Width 12.7 % (11.5-14.5); Red Blood Cell (RBC) Count 5.05 mill/uL (4.20-5.40); White Blood Cell (WBC) Count 8.5 thou/uL (4.8-10.8)
[2018-01-10 15:30] LABS: ALT (SGPT) 10 U/L (8-55); AST (SGOT) 9 U/L (5-34); Albumin 3.5 g/dL (3.5-5.0); Alkaline Phosphatase 93 U/L (40-150); Anion Gap 13 mmol/L (10-20); BUN (Urea Nitrogen) 11 mg/dL (7.0-18.7); Bilirubin, Total 0.3 mg/dL (0.2-1.2); Calc. Creatinine Clearance 0 mL/min (70-130); Calcium 9.3 mg/dL (7.8-10.44); Carbon Dioxide 22 mmol/L (22-29); Chloride 99 mmol/L (98-107); Estimated GFR-MDRD 56; Globulin 2.9 g/dL (2.4-3.5); Potassium 4.3 mmol/L (3.5-5.1); Protein, Total 6.4 g/dL (6.0-8.3); Sodium 130 mmol/L (136-145)
[2018-01-10 15:32] LABS: Bilirubin Negative (Negative); Blood, Urine Negative (Negative); Clarity CLEAR (Clear); Glucose, Urine (Dipstick) >=1000 mg/dL (Negative); Leukocyte Negative (Negative); Nitrite Negative (Negative); Protein, Urine (Dipstick) Negative (Neg-Trace); Urobilinogen 0.2 mg/dL (0.2-1.0); pH, Urine 5.5 (5.0-9.0)
[2018-01-10 15:36] LABS: Glucose 606 mg/dL (70-105)
[2018-01-10 15:46] LABS: Magnesium 1.9 mg/dL (1.6-2.6)
[2018-01-10 15:50] LABS: CKMB 0.6 ng/mL (0-6.6); Troponin I Less than 0.010 ng/mL (< 0.028)
--- NOTE | 2018-01-10 15:53 | RAD ---
AP CHEST: History: 43-year-old female with chest pain. Date: 01-10-18 Comparison: 03-22-17 FINDINGS: AP chest demonstrates the lungs to be well aerated. No evidence of active intrathoracic disease is se en. No evidence of effusions, pneumonia, or pneumothorax seen. IMPRESSION: Unremarkable AP view chest. POS: [facility]
[2018-01-10] MEDS ORDERED: Insulin Regular 300 UNITS/3 ML VIAL ONE ×2 (16:33→16:36)
== END 2018-01-10 19:15 | disposition home or self-care (01) ==
LOC: ERS 14:34
DX: E10.65 Type 1 diabetes mellitus with hyperglycemia (principal); I10 Essential (primary) hypertension; I50.9 Heart failure, unspecified; G43.909 Migraine, unspecified, not intractable, without status migrainosus; F20.9 Schizophrenia, unspecified; F31.9 Bipolar disorder, unspecified; F41.9 Anxiety disorder, unspecified
CPT/HCPCS: 36415; 36416; 71045; 80053; 81003; 82010; 82330; 82435; 82553; 82803; 83605; 83690; 83735; 84132; 84295; 84484; 85014; 85025; 87077; 87086; 96361; 96374; J1815

== ENCOUNTER 2018-02-02 15:02 | Emergency (ER) | payer SELFPAY ==
[2018-02-02 15:38] LABS: #Eosinphils 0.1 thou/uL (0.0-0.7); #Lymphocytes 3.3 thou/uL (1.20-3.40); #Monocytes 0.4 thou/uL (0.11-0.59); #Neutrophils 4.2 thou/uL (1.40-6.50); %Basophils 0.5 % (0.0-1.0); %Eosinophils 1.1 % (0.0-10.0); %Lymphocytes 41.2 % (21.0-51.0); %Monocytes 5.2 % (0.0-10.0); Hemoglobin 14.1 g/dL (12.0-16.0); Mean Corpuscular HGB CONC 33.2 g/dL (32.0-36.0); Mean Corpuscular Hemoglobin 29.1 pg (27.0-31.0); Mean Corpuscular Volume 87.9 fl (81.0-99.0); Mean Platelet Volume 8.7 fL (7.4-10.4); Platelet Count 184 thou/uL (130-400); RBC Distribution Width 12.7 % (11.5-14.5); Red Blood Cell (RBC) Count 4.83 mill/uL (4.20-5.40)
--- NOTE | 2018-02-02 15:56 | RAD ---
PORTABLE CHEST 1 VIEW: Date: 02/02/18 Time: 1543 hours HISTORY: Dizziness. Back pain. High blood sugar reading at home. FINDINGS: Comparison made with exam of 01/10/18. The heart size is normal. The lungs are well expanded without focal areas of consolidation, pneumotho rax, or pleural effusions. IMPRESSION: No radiographic evidence of acute cardiopulmonary process. POS: [facility]
[2018-02-02 16:05] LABS: ALT (SGPT) 11 U/L (8-55); AST (SGOT) 11 U/L (5-34); Albumin 3.4 g/dL (3.5-5.0); Alkaline Phosphatase 86 U/L (40-150); Anion Gap 13 mmol/L (10-20); BUN (Urea Nitrogen) 8 mg/dL (7.0-18.7); Bilirubin, Total 0.3 mg/dL (0.2-1.2); CK (CPK) 61 U/L (29-168); Calc. Creatinine Clearance 0 mL/min (70-130); Calcium 8.9 mg/dL (7.8-10.44); Carbon Dioxide 23 mmol/L (22-29); Chloride 101 mmol/L (98-107); Estimated GFR-MDRD 84; Globulin 2.5 g/dL (2.4-3.5); Glucose 394 mg/dL (70-105); Protein, Total 5.9 g/dL (6.0-8.3); Sodium 133 mmol/L (136-145)
[2018-02-02 16:06] LABS: CKMB 0.7 ng/mL (0-6.6); Troponin I Less than 0.010 ng/mL (< 0.028)
[2018-02-02 17:41] LABS: Bilirubin Negative (Negative); Blood, Urine Negative (Negative); Clarity CLEAR (Clear); Glucose, Urine (Dipstick) >=1000 mg/dL (Negative); Leukocyte Negative (Negative); Nitrite Negative (Negative); Protein, Urine (Dipstick) Negative (Neg-Trace); Specific Gravity, Urine 1.038 (1.002-1.036); Urobilinogen 0.2 mg/dL (0.2-1.0); pH, Urine 5.5 (5.0-9.0)
== END 2018-02-02 18:15 | disposition home or self-care (01) ==
LOC: ERS 15:02
DX: E11.40 Type 2 diabetes mellitus with diabetic neuropathy, unspecified (principal); R55 Syncope and collapse; I11.0 Hypertensive heart disease with heart failure; I50.9 Heart failure, unspecified; G43.909 Migraine, unspecified, not intractable, without status migrainosus; F31.9 Bipolar disorder, unspecified; F41.9 Anxiety disorder, unspecified; Z87.891 Personal history of nicotine dependence
CPT/HCPCS: 36415; 36416; 71045; 80053; 81003; 82010; 82553; 83605; 84484; 85025; 93005; 94760

== ENCOUNTER 2018-02-25 14:15 | Emergency (ER) | payer SELFPAY ==
[2018-02-25 15:00] LABS: Bilirubin Negative (Negative); Blood, Urine Negative (Negative); Clarity CLEAR (Clear); Glucose, Urine (Dipstick) >=1000 mg/dL (Negative); Leukocyte Negative (Negative); Nitrite Negative (Negative); Protein, Urine (Dipstick) Negative (Neg-Trace); Specific Gravity, Urine 1.041 (1.002-1.036); Urobilinogen 0.2 mg/dL (0.2-1.0); pH, Urine 5.5 (5.0-9.0)
[2018-02-25 15:04] LABS: #Basophils 0.1 thou/uL (0.0-0.2); #Eosinphils 0.2 thou/uL (0.0-0.7); #Lymphocytes 3.2 thou/uL (1.20-3.40); #Monocytes 0.4 thou/uL (0.11-0.59); #Neutrophils 3.5 thou/uL (1.40-6.50); %Basophils 0.9 % (0.0-1.0); %Eosinophils 2.6 % (0.0-10.0); %Lymphocytes 43.4 % (21.0-51.0); %Monocytes 5.6 % (0.0-10.0); %Neutrophils 47.6 % (42.0-75.0); Hemoglobin 14.8 g/dL (12.0-16.0); Mean Corpuscular HGB CONC 33.8 g/dL (32.0-36.0); Mean Corpuscular Hemoglobin 30.3 pg (27.0-31.0); Mean Corpuscular Volume 89.5 fl (81.0-99.0); Platelet Count 207 thou/uL (130-400); RBC Distribution Width 12.7 % (11.5-14.5); Red Blood Cell (RBC) Count 4.87 mill/uL (4.20-5.40); White Blood Cell (WBC) Count 7.3 thou/uL (4.8-10.8)
[2018-02-25 15:21] LABS: ALT (SGPT) 15 U/L (8-55); AST (SGOT) 21 U/L (5-34); Albumin 3.3 g/dL (3.5-5.0); Alkaline Phosphatase 72 U/L (40-150); Anion Gap 17 mmol/L (10-20); BUN (Urea Nitrogen) 7 mg/dL (7.0-18.7); Bilirubin, Total 0.3 mg/dL (0.2-1.2); Calc. Creatinine Clearance 0 mL/min (70-130); Calcium 8.5 mg/dL (7.8-10.44); Carbon Dioxide 19 mmol/L (22-29); Chloride 101 mmol/L (98-107); Estimated GFR-MDRD 70; Globulin 2.6 g/dL (2.4-3.5); Glucose 553 mg/dL (70-105); Potassium 4.6 mmol/L (3.5-5.1); Protein, Total 5.9 g/dL (6.0-8.3); Sodium 132 mmol/L (136-145)
[2018-02-25] MEDS ORDERED: Insulin Regular 300 UNITS/3 ML VIAL ONE (15:31)
[2018-02-25] MEDS ORDERED: Ondansetron ODT 4 MG TAB ONE (15:34)
[2018-02-25] MEDS ORDERED: Metoclopramide HCl 10 MG/2 ML VIAL IVP SCH (16:45)
[2018-02-25] MEDS ORDERED: Sodium Chloride 0.9% 0 ML ONE (16:54)
== END 2018-02-25 17:44 | disposition home or self-care (01) ==
LOC: ERS 14:15
DX: R10.9 Unspecified abdominal pain (principal); R11.0 Nausea; E11.65 Type 2 diabetes mellitus with hyperglycemia; E11.40 Type 2 diabetes mellitus with diabetic neuropathy, unspecified; I11.0 Hypertensive heart disease with heart failure; I50.9 Heart failure, unspecified; G43.909 Migraine, unspecified, not intractable, without status migrainosus; F31.9 Bipolar disorder, unspecified; F41.9 Anxiety disorder, unspecified; F20.9 Schizophrenia, unspecified; Z87.891 Personal history of nicotine dependence
CPT/HCPCS: 36416; 80053; 81003; 82010; 85025; 96361; 96374; 96375; J1815; J2765; J7050; Q0162

== ENCOUNTER 2018-08-17 17:35 | Emergency (ER) | payer SELFPAY ==
[2018-08-17 18:22] LABS: #Eosinphils 0.1 thou/uL (0.0-0.7); #Lymphocytes 3.3 thou/uL (1.20-3.40); #Monocytes 0.5 thou/uL (0.11-0.59); %Basophils 0.4 % (0.0-1.0); %Eosinophils 1.2 % (0.0-10.0); %Lymphocytes 42.4 % (21.0-51.0); %Monocytes 5.7 % (0.0-10.0); %Neutrophils 50.3 % (42.0-75.0); Hemoglobin 14.1 g/dL (12.0-16.0); Mean Corpuscular HGB CONC 32.7 g/dL (32.0-36.0); Mean Corpuscular Hemoglobin 28.8 pg (27.0-31.0); Mean Corpuscular Volume 87.9 fL (78.0-98.0); Platelet Count 267 thou/uL (130-400); RBC Distribution Width 12.7 % (11.5-14.5); White Blood Cell (WBC) Count 7.9 thou/uL (4.8-10.8)
[2018-08-17 18:42] LABS: ALT (SGPT) 15 U/L (8-55); AST (SGOT) 10 U/L (5-34); Alkaline Phosphatase 97 U/L (40-150); Anion Gap 12 mmol/L (10-20); BUN (Urea Nitrogen) 10 mg/dL (7.0-18.7); Bilirubin, Total 0.5 mg/dL (0.2-1.2); Calc. Creatinine Clearance 0 mL/min (70-130); Calcium 9.4 mg/dL (7.8-10.44); Carbon Dioxide 22 mmol/L (22-29); Chloride 105 mmol/L (98-107); Estimated GFR-MDRD 60; Globulin 3.2 g/dL (2.4-3.5); Glucose 389 mg/dL (70-105); Potassium 3.8 mmol/L (3.5-5.1); Protein, Total 7.2 g/dL (6.0-8.3); Sodium 135 mmol/L (136-145)
[2018-08-17 19:11] LABS: Bilirubin Negative (Negative); Blood, Urine Negative (Negative); Clarity CLEAR (Clear); Glucose, Urine (Dipstick) >=1000 mg/dL (Negative); Leukocyte Negative (Negative); Nitrite Negative (Negative); Protein, Urine (Dipstick) Negative (Neg-Trace); Specific Gravity, Urine 1.042 (1.002-1.036)
[2018-08-17 19:48] LABS: CK (CPK) 137 U/L (29-168); Lipase 25 U/L (8-78)
[2018-08-17 19:53] LABS: CKMB 1.2 ng/mL (0-6.6); Troponin I Less than 0.010 ng/mL (< 0.028)
--- NOTE | 2018-08-17 20:56 | RAD ---
CHEST ONE VIEW: 08/17/18 INDICATION: Chest pain. COMPARISON: Prior dated 02/02/18. FINDINGS: Lungs are clear. The cardiomediastinal silhouette is within normal limits. No acute osseous abnormali ty is evident. IMPRESSION: No acute cardiopulmonary abnormality. POS: [facility]
--- NOTE | 2018-08-19 08:41 | EKG ---
Test Reason : Blood Pressure : / mmHG Vent. Rate : 064 BPM Atrial Rate : 064 BPM P-R Int : 088 ms QRS Dur : 086 ms QT Int : 442 ms P-R-T Axes : 028 030 028 degrees QTc Int : 455 ms Sinus rhythm with short DE with Premature supraventricular complexes Otherwise normal ECG Confirmed by NACHO AC ([id number]) on 08/19/2018 8:40:59 AM Referred By: Confirmed By:NACHO AC
== END 2018-08-17 21:32 | disposition home or self-care (01) ==
LOC: ERS 17:35
DX: R10.33 Periumbilical pain (principal); I11.0 Hypertensive heart disease with heart failure; I50.9 Heart failure, unspecified; E11.40 Type 2 diabetes mellitus with diabetic neuropathy, unspecified; G43.909 Migraine, unspecified, not intractable, without status migrainosus; F17.210 Nicotine dependence, cigarettes, uncomplicated; F31.9 Bipolar disorder, unspecified; F41.9 Anxiety disorder, unspecified; F20.9 Schizophrenia, unspecified; Z79.899 Other long term (current) drug therapy
CPT/HCPCS: 36415; 36416; 71045; 80053; 81003; 82553; 83690; 84484; 85025; 85379; 93005; 96360

== ENCOUNTER 2018-08-28 12:05 | Emergency (ER) | payer SELFPAY ==
[2018-08-28] MEDS ORDERED: Acetaminophen 500 MG TAB ONE (12:53)
[2018-08-28] MEDS ORDERED: Ketorolac Tromethamine 30 MG/ML VIAL ONE (12:53)
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
--- NOTE | 2018-09-01 23:07 | EKG ---
Test Reason : CP Blood Pressure : / mmHG Vent. Rate : 095 BPM Atrial Rate : 095 BPM P-R Int : 138 ms QRS Dur : 072 ms QT Int : 362 ms P-R-T Axes : 064 019 025 degrees QTc Int : 454 ms Normal sinus rhythm Normal ECG Confirmed by CUBA CHEW ([id number]), magazine editor DYANA FREITAS ([id number]) on 09/01/2018 11:07:12 PM Referred By: Confirmed By:CUBA CHEW
== END 2018-08-28 14:11 | disposition home or self-care (01) ==
LOC: ERS 12:05
DX: S06.0X0A Concussion without loss of consciousness, initial encounter (principal); S13.9XXA Sprain of joints and ligaments of unspecified parts of neck, initial encounter; S83.91XA Sprain of unspecified site of right knee, initial encounter; I11.0 Hypertensive heart disease with heart failure; I50.9 Heart failure, unspecified; E11.40 Type 2 diabetes mellitus with diabetic neuropathy, unspecified; F20.9 Schizophrenia, unspecified; F41.9 Anxiety disorder, unspecified; F31.9 Bipolar disorder, unspecified; Z87.891 Personal history of nicotine dependence; Z79.899 Other long term (current) drug therapy; Z79.4 Long term (current) use of insulin; V43.52XA Car driver injured in collision with other type car in traffic accident, initial encounter
CPT/HCPCS: 70450; 71046; 72100; 72125; 93005; 96374; J1885

== ENCOUNTER 2018-09-14 10:17 | Emergency (ER) | payer SELFPAY ==
[2018-09-14 11:03] LABS: #Basophils 0.1 thou/uL (0.0-0.2); #Eosinphils 0.1 thou/uL (0.0-0.7); #Lymphocytes 2.6 thou/uL (1.20-3.40); #Monocytes 0.4 thou/uL (0.11-0.59); #Neutrophils 3.5 thou/uL (1.40-6.50); %Basophils 0.9 % (0.0-1.0); %Lymphocytes 38.6 % (21.0-51.0); %Monocytes 6.4 % (0.0-10.0); %Neutrophils 52.1 % (42.0-75.0); Hemoglobin 14.7 g/dL (12.0-16.0); Mean Corpuscular HGB CONC 31.4 g/dL (32.0-36.0); Mean Corpuscular Hemoglobin 27.6 pg (27.0-31.0); Mean Platelet Volume 8.6 fL (7.4-10.4); Platelet Count 248 thou/uL (130-400); Red Blood Cell (RBC) Count 5.34 mill/uL (4.20-5.40); White Blood Cell (WBC) Count 6.8 thou/uL (4.8-10.8)
[2018-09-14] MEDS ORDERED: Metoclopramide HCl 10 MG/2 ML VIAL ONE (11:04)
[2018-09-14] MEDS ORDERED: Pantoprazole 40 MG VIAL ONE (11:04)
[2018-09-14 11:23] LABS: BHCG - Serum Negative (NEGATIVE); Pregs Control Background? CLEAR/WHITE (CLR/WHITE); Pregs Control Bar Appear? YES (CONTROL BAR)
[2018-09-14 11:39] LABS: CKMB 1.3 ng/mL (0-6.6); Troponin I Less than 0.010 ng/mL (< 0.028)
[2018-09-14 11:59] LABS: Bilirubin Negative (Negative); Blood, Urine Negative (Negative); Clarity CLEAR (Clear); Glucose, Urine (Dipstick) >=1000 mg/dL (Negative); Leukocyte Negative (Negative); Nitrite Negative (Negative); Protein, Urine (Dipstick) Negative (Neg-Trace); Urobilinogen 0.2 mg/dL (0.2-1.0); pH, Urine 5.5 (5.0-9.0)
[2018-09-14 12:04] LABS: Specific Gravity, Urine 1.045 (1.002-1.036)
[2018-09-14 12:13] LABS: ALT (SGPT) 15 U/L (8-55); AST (SGOT) 10 U/L (5-34); Albumin 3.9 g/dL (3.5-5.0); Alkaline Phosphatase 102 U/L (40-150); Anion Gap 12 mmol/L (10-20); BUN (Urea Nitrogen) 9 mg/dL (7.0-18.7); Bilirubin, Total 0.7 mg/dL (0.2-1.2); Calc. Creatinine Clearance 0 mL/min (70-130); Calcium 9.7 mg/dL (7.8-10.44); Carbon Dioxide 25 mmol/L (22-29); Chloride 101 mmol/L (98-107); Estimated GFR-MDRD 78; Globulin 3.1 g/dL (2.4-3.5); Glucose 412 mg/dL (70-105); Sodium 134 mmol/L (136-145)
[2018-09-14] MEDS ORDERED: Insulin Regular 300 UNITS/3 ML VIAL ONE (13:11)
== END 2018-09-14 14:37 | disposition home or self-care (01) ==
LOC: ERS 10:17
DX: E11.65 Type 2 diabetes mellitus with hyperglycemia (principal); E78.5 Hyperlipidemia, unspecified; I11.0 Hypertensive heart disease with heart failure; I50.9 Heart failure, unspecified; G43.909 Migraine, unspecified, not intractable, without status migrainosus; E11.40 Type 2 diabetes mellitus with diabetic neuropathy, unspecified; F20.9 Schizophrenia, unspecified; F41.9 Anxiety disorder, unspecified; F31.9 Bipolar disorder, unspecified; Z87.891 Personal history of nicotine dependence; Z79.899 Other long term (current) drug therapy; Z79.4 Long term (current) use of insulin
CPT/HCPCS: 36416; 80053; 81003; 82010; 82553; 83880; 84484; 84703; 85025; 87077; 87086; 93005; 96361; 96365; 96366; 96375; C9113; J1815; J2765

== ENCOUNTER 2018-11-13 20:09 | Emergency (ER) | payer OTHER, SELFPAY ==
[2018-11-13 20:58] LABS: Bilirubin Negative (Negative); Blood, Urine Negative (Negative); Clarity CLEAR (Clear); Glucose, Urine (Dipstick) >=1000 mg/dL (Negative); Leukocyte Negative (Negative); Nitrite Negative (Negative); Protein, Urine (Dipstick) Negative (Neg-Trace); Urobilinogen 0.2 mg/dL (0.2-1.0)
[2018-11-13] MEDS ORDERED: Metoclopramide HCl 10 MG/2 ML VIAL ONE (21:36)
[2018-11-13] MEDS ORDERED: Insulin Regular 300 UNITS/3 ML VIAL ONE (21:36)
[2018-11-13 21:47] LABS: #Basophils 0.1 thou/uL (0.0-0.2); #Lymphocytes 2.4 thou/uL (1.20-3.40); #Monocytes 0.2 thou/uL (0.11-0.59); #Neutrophils 10.3 thou/uL (1.40-6.50); %Basophils 0.8 % (0.0-1.0); %Eosinophils 0.1 % (0.0-10.0); %Lymphocytes 18.3 % (21.0-51.0); %Monocytes 1.7 % (0.0-10.0); %Neutrophils 79.1 % (42.0-75.0); Hemoglobin 15.9 g/dL (12.0-16.0); Mean Corpuscular HGB CONC 33.2 g/dL (32.0-36.0); Mean Corpuscular Hemoglobin 29.4 pg (27.0-31.0); Mean Corpuscular Volume 88.5 fL (78.0-98.0); Mean Platelet Volume 9.1 fL (7.4-10.4); Platelet Count 213 thou/uL (130-400); RBC Distribution Width 12.5 % (11.5-14.5); Red Blood Cell (RBC) Count 5.43 mill/uL (4.20-5.40); White Blood Cell (WBC) Count 13.1 thou/uL (4.8-10.8)
[2018-11-13 22:08] LABS: ALT (SGPT) 16 U/L (8-55); AST (SGOT) 8 U/L (5-34); Albumin 3.9 g/dL (3.5-5.0); Alkaline Phosphatase 87 U/L (40-150); Anion Gap 14 mmol/L (10-20); BUN (Urea Nitrogen) 15 mg/dL (7.0-18.7); Bilirubin, Total 0.5 mg/dL (0.2-1.2); Calc. Creatinine Clearance 0 mL/min (70-130); Calcium 9.5 mg/dL (7.8-10.44); Carbon Dioxide 20 mmol/L (22-29); Chloride 96 mmol/L (98-107); Estimated GFR-MDRD 53; Globulin 2.7 g/dL (2.4-3.5); Potassium 4.4 mmol/L (3.5-5.1); Protein, Total 6.6 g/dL (6.0-8.3); Sodium 126 mmol/L (136-145)
[2018-11-13 22:26] LABS: Glucose 667 mg/dL (70-105)
== END 2018-11-14 00:19 | disposition home or self-care (01) ==
LOC: ERS 20:09
DX: E11.65 Type 2 diabetes mellitus with hyperglycemia (principal); E78.5 Hyperlipidemia, unspecified; E11.40 Type 2 diabetes mellitus with diabetic neuropathy, unspecified; I11.0 Hypertensive heart disease with heart failure; I50.9 Heart failure, unspecified; G43.909 Migraine, unspecified, not intractable, without status migrainosus; F31.9 Bipolar disorder, unspecified; F20.9 Schizophrenia, unspecified; F41.9 Anxiety disorder, unspecified; Z79.899 Other long term (current) drug therapy; Z87.891 Personal history of nicotine dependence
CPT/HCPCS: 36416; 80053; 81003; 82010; 85025; 96361; 96365; J1815; J2765

== ENCOUNTER 2018-11-14 14:15 | Observation (INO) | payer SELFPAY ==
[2018-11-14 14:47] LABS: Bilirubin Negative (Negative); Blood, Urine Negative (Negative); Clarity CLEAR (Clear); Glucose, Urine (Dipstick) >=1000 mg/dL (Negative); Leukocyte Small (Negative); Nitrite Negative (Negative); Protein, Urine (Dipstick) Negative (Neg-Trace); Specific Gravity, Urine 1.036 (1.002-1.036); Urobilinogen 0.2 mg/dL (0.2-1.0); pH, Urine 5.5 (5.0-9.0)
[2018-11-14 14:49] LABS: Bacteria/HPF None Seen HPF (None Seen); Hyaline Casts/LPF 0-3 HYALINE CAST LPF (0-3 Hyaline); RBC/HPF 0-3 HPF (0-3); Squamous Epithelial 0-3 HPF (0-3)
[2018-11-14 15:35] LABS: #Lymphocytes 4.6 thou/uL (1.20-3.40); #Monocytes 0.8 thou/uL (0.11-0.59); #Neutrophils 8.2 thou/uL (1.40-6.50); %Basophils 0.2 % (0.0-1.0); %Eosinophils 0.3 % (0.0-10.0); %Lymphocytes 33.9 % (21.0-51.0); %Monocytes 5.7 % (0.0-10.0); %Neutrophils 59.9 % (42.0-75.0); Hemoglobin 14.3 g/dL (12.0-16.0); Mean Corpuscular Hemoglobin 29.7 pg (27.0-31.0); Mean Corpuscular Volume 90.2 fL (78.0-98.0); Mean Platelet Volume 9.3 fL (7.4-10.4); Platelet Count 194 thou/uL (130-400); RBC Distribution Width 12.6 % (11.5-14.5); Red Blood Cell (RBC) Count 4.81 mill/uL (4.20-5.40); White Blood Cell (WBC) Count 13.7 thou/uL (4.8-10.8)
[2018-11-14 15:48] LABS: Base Excess-Venous -4.1 mmol/L (0 (+/- 2.5)); Bicarbonate (HCO3v) 20.8 mmol/L (22.0-29.0); CO2 Tension (PvCO2) 36.9 mmHg (41.0-51.0); Calcium, Ionized 1.13 mmol/L (1.12-1.32); Hemoglobin - Calc 15.7 g/dL (12.0-18.0); O2 Tension (PvO2) 41.4 mmHg (35.0-45.0); Potassium 3.6 mmol/L (3.4-4.7); pH (Venous) 7.359 (7.35-7.45)
[2018-11-14 15:57] LABS: ALT (SGPT) 13 U/L (8-55); AST (SGOT) 7 U/L (5-34); Albumin 3.8 g/dL (3.5-5.0); Alkaline Phosphatase 82 U/L (40-150); Anion Gap 16 mmol/L (10-20); BUN (Urea Nitrogen) 12 mg/dL (7.0-18.7); Bilirubin, Total 0.5 mg/dL (0.2-1.2); Calc. Creatinine Clearance 0 mL/min (70-130); Calcium 8.7 mg/dL (7.8-10.44); Carbon Dioxide 19 mmol/L (22-29); Chloride 96 mmol/L (98-107); Estimated GFR-MDRD 55; Globulin 2.2 g/dL (2.4-3.5); Lipase 20 U/L (8-78); Sodium 127 mmol/L (136-145)
[2018-11-14 16:03] LABS: Glucose 665 mg/dL (70-105)
[2018-11-14] MEDS ORDERED: Insulin Regular 300 UNITS/3 ML VIAL ONE ×2 (16:13→17:55)
[2018-11-14] MEDS ORDERED: cefTRIAXone\\ROCEPHIN 1 GM VIAL ONE (17:49)
[2018-11-14] MEDS ORDERED: Dextrose 5% in Water 1,000 ML IV PRN (18:39)
[2018-11-14] MEDS ORDERED: Senokot S 8.6-50 MG TAB PO PRN (18:39)
[2018-11-14] MEDS ORDERED: Ondansetron PF 4 MG/2 ML Vial IVP PRN (18:39)
[2018-11-14] MEDS ORDERED: Dextrose 50% Abboject 50 ML SYRINGE SLOW IVP PRN (18:39)
[2018-11-14] MEDS ORDERED: Ondansetron ODT 4 MG TAB PO PRN (18:39)
[2018-11-14] MEDS ORDERED: Acetaminophen 650 MG Suppository PR PRN (18:39)
[2018-11-14] MEDS ORDERED: Metoclopramide HCl 10 MG TAB PO PRN (18:39)
[2018-11-14] MEDS ORDERED: HumaLOG 300 UNITS/3 ML VIAL SC PRN (18:39)
[2018-11-14 19:53] VITALS: BMI 40.2
[2018-11-14] MEDS: Lisinopril/Hydrochlorothiazide 20/25 mg Tablet PO SCH (20:24)
[2018-11-14] MEDS: Sodium Chloride 0.9% 1,000 ML IV SCH (20:24)
[2018-11-14] MEDS: Acetaminophen 325 MG TAB PO PRN (20:24)
[2018-11-14] MEDS: Gabapentin 300 MG CAP PO SCH (20:25)
[2018-11-14] MEDS: Famotidine 20 MG TAB PO SCH (20:25)
[2018-11-14] MEDS ORDERED: Insulin Glargine 23 UNITS in Pre-Filled Syringe 1 EACH SC SCH (21:00)
--- NOTE | 2018-11-15 01:09 | HP ---
PRIMARY CARE PHYSICIAN: Tod Melgar. CHIEF COMPLAINT: Elevated blood sugar, polyuria, and sore stomach. HISTORY OF PRESENT ILLNESS: This is a 43-year-old female with a known history of diabetes mellitus type 2, insulin dependent, who was last admitted here about 1 year ago. At that time, she was on Lantus 60 units in the morning and 75 units at night and was having some low blood sugar spells. She also had a chest pain rule out done at that time which was negative. Due to some loss of insurance, she had her Lantus changed to insulin 70/30, and they discharged her on 55 units twice a day, which was apparently controlling her blood sugar decently. Then, the patient reports that the 70/30 worked for some time, but then she [facility] and some reason they switched her to Levemir, and she states that one time there they had her on 25 twice a day and it was causing a low blood sugar about 50 every 3 days or so. She stated that they decreased that and tried her on a sliding scale with her meals 6 units of insulin with each meal and that also caused low blood sugars. The patient is now on she says 16 units of insulin twice a day, although she told the emergency room it was 12 yesterday when she was seen. The patient presented to the emergency room yesterday with some abdominal pain and also complaining of elevated blood sugars. Her blood sugars in the emergency room were in the 500s. It came down to 357 after 10 units of IV insulin. She was also given a dose of IV Reglan because she was having nausea and vomiting, and then she was discharged to follow up with her primary care physician. The patient reports that she did take her morning dose of Levemir this morning of 16 units, ate a single piece of toast and one egg and that her blood sugars continued to rise until they were over 500, so she came back into the emergency room. She has been having persistent total abdominal soreness, but no more vomiting today, just not feeling very hungry. She has also been urinating constantly, probably from the elevated blood sugars. She has not had any other significant symptoms. In the emergency room here, her blood sugar was 665. She was given initially 5 units of insulin and another 5 once the full value came back along with normal saline. Her recheck is now 328. However, given the patient's bounce back, the ER doctor asked that we observe the patient to control her blood sugar, so she does not just come right back again. PAST MEDICAL HISTORY: 1. Diabetes mellitus type 2, insulin dependent. 2. Chronic kidney disease, stage 3. 3. Hyperlipidemia. 4. Hypertension. 5. Peripheral neuropathy. 6. Chronic back pain. PSYCHIATRIC HISTORY: 1. Bipolar disorder. 2. Anxiety. PAST SURGICAL HISTORY: 1. Hysterectomy. 2. Bilateral tubal ligation. 3. Cataract surgery. ALLERGIES: BACTRIM. CURRENT MEDICATIONS: 1. Metoprolol extended release 100 mg daily. 2. Spironolactone 25 mg daily. 3. Lisinopril/hydrochlorothiazide 20/25 mg daily. 4. Gabapentin 300 mg 3 times a day. 5. Glimepiride 4 mg daily. 6. Alprazolam 2 mg, unknown dosing. 7. Levemir 16 units twice a day. 8. Atorvastatin 40 mg daily. 9. Reglan 10 mg every 8 hours as needed for nausea and vomiting. SOCIAL HISTORY: The patient is a former tobacco user. Smoked cigarettes until 2014. Denies alcohol or illicit drug use. FAMILY HISTORY: Mom had lupus, kidney disease, and a pacemaker due to enlarged heart. Dad had diabetes. REVIEW OF SYSTEMS: CONSTITUTIONAL: No fevers. She has occasional chills. No weight changes. HEENT: Eyes, no double vision. She has had some blurred vision since her blood sugars have been so elevated. ENT; no congestion, drainage, or sore throat. CARDIOVASCULAR: No chest pain. No palpitations. No racing heart. PULMONARY: No coughing, wheezing, or shortness of breath. GASTROINTESTINAL: See HPI. No current nausea or vomiting. No diarrhea or constipation. Generalized abdominal soreness, but no specific area that is bad. GENITOURINARY: No dysuria. She has had polyuria. MUSCULOSKELETAL: She has some chronic muscle aches and back pain, but nothing new. No musculoskeletal injuries. SKIN: No rashes or lesions noted. NEUROLOGIC: She has no numbness, tingling, or focal weakness. PHYSICAL EXAMINATION: VITAL SIGNS: Blood pressure 131/100, pulse 80, respirations 17, temperature 97.4, O2 saturation 100% on room air. GENERAL: This is a well-developed, obese, female, in no acute distress. HEENT: Pupils are equal, round, and reactive to light. Oropharynx clear without lesions, erythema, or exudate. NECK: Supple. No lymphadenopathy. No thyroid nodules or enlargement. No JVD. HEART: Regular rate and rhythm. No murmurs, rubs, or gallops. LUNGS: Clear to auscultation bilaterally. No wheezes, crackles, or rhonchi. ABDOMEN: Soft, mildly tender to palpation diffusely. No specific areas of worse tenderness. No masses. No guarding. No rebound tenderness. Normoactive bowel sounds. EXTREMITIES: No clubbing, cyanosis, or edema. SKIN: No rashes or other lesions noted. NEUROLOGIC: She has intact strength and sensation in all extremities and no facial droop. PSYCHIATRIC: Alert and oriented x3. Normal mood and affect. LABORATORY DATA: CBC with a white blood cell count of 13.7 and normal differential. The remainder of the CBC was normal. Her VBG had a normal pH of 7.359. Complete metabolic panel was notable for a sodium of 127, which is consistent with her severe hyperglycemia, normal potassium of 4.0, chloride 96, bicarb 19, normal anion gap , BUN 12, creatinine 1.28, which is better than she was yesterday at 1.32, but above her regular creatinine which bounces between 8 and 1. Glucose 665. The rest of her complete metabolic panel was normal. Blood sugar is now down to 328. Ionized calcium was normal. Troponin was negative. Lipase was normal. Urinalysis showed greater than 1000 glucose, small leukocyte esterase, 11 to 20 white blood cells , but no bacteria. Toxicology screen was negative for beta hydroxybutyrate. ASSESSMENT: 1. Diabetes mellitus type 2, insulin dependent, poorly controlled with severe hyperglycemia. No DKA or hyperosmolar coma at this time. The patient appears to have very poor blood sugar control, as it is. She is noncompliant with medications. She has actually been enrolled in a program through our ER to try and help get her blood sugar under control, so she would limit her number of ER visits, and she was dismissed in September of last year due to noncompliance. Her history is not making a lot of sense, given the fact that she used to be on lot more insulin in the past with intermittent hypoglycemic spells and now she is on much less and hence talking about having hypoglycemia. As it is, she does need to be increased on her Levemir. She might do better on 70/30, but perhaps the [facility] is able to obtain the Levemir for her free. For now, we will just use a long-acting and may increase her to 23 units twice a day. We will give her a dose tonight and a dose in the morning. I am just going to keep her in observation overnight and put her on a moderate sliding scale with fingerstick blood sugars q.a.c. and h.s. and then if her blood sugar is in better control tomorrow, then we can discharge her home. She does need to be compliant if she is going to get this under control. 2. Acute on chronic renal failure. The patient's creatinine has started to come down since the fluid yesterday. We will continue to give her fluids here in the emergency room and then encourage p.o. water intake only, not sweet drinks, and recheck her creatinine in the morning. 3. Potassium is normal currently, but we will watch as we rehydrate her and recheck in the morning. 4. History of nausea and vomiting. She may have had a little stomach bug yesterday, but her symptoms seem improved now. I suspect some underlying gastroparesis. We will give her Reglan as needed for nausea and vomiting and she is going to have some Zofran sublingual as well as needed. CODE STATUS: The patient is a full code. Job ID: [id number] MTDD
[2018-11-15 05:13] LABS: Anion Gap 10 mmol/L (10-20); BUN (Urea Nitrogen) 9 mg/dL (7.0-18.7); Calc. Creatinine Clearance 172 mL/min (70-130); Carbon Dioxide 24 mmol/L (22-29); Chloride 102 mmol/L (98-107); Estimated GFR-MDRD Greater than 90; Glucose 345 mg/dL (70-105); Potassium 3.6 mmol/L (3.5-5.1); Sodium 132 mmol/L (136-145)
[2018-11-15 05:21] LABS: Eosinophils 1 % (0-10); Hemoglobin 12.8 g/dL (12.0-16.0); Lymphocytes 52 % (21-51); MDiff Complete? YES; Mean Corpuscular HGB CONC 33.7 g/dL (32.0-36.0); Mean Corpuscular Volume 88.8 fL (78.0-98.0); Mean Platelet Volume 9.1 fL (7.4-10.4); Monocytes 8 % (0-10); Neutrophil 39 % (42-75); Platelet Count 175 thou/uL (130-400); Platelet Morphology Comment Appears Adequate; RBC Distribution Width 12.5 % (11.5-14.5); Red Blood Cell (RBC) Count 4.26 mill/uL (4.20-5.40); White Blood Cell (WBC) Count 8.8 thou/uL (4.8-10.8)
[2018-11-15] MEDS: HumaLOG 300 UNITS/3 ML VIAL SC PRN ×2 (05:55→12:10)
[2018-11-15] MEDS: Sodium Chloride 0.9% 1,000 ML IV SCH (05:56)
[2018-11-15] MEDS ORDERED: Clopidogrel Bisulfate 75 MG TAB ONE (06:00)
[2018-11-15] MEDS ORDERED: Glimepiride 4 MG TAB PO SCH (08:00)
--- NOTE | 2018-11-15 08:26 | PDOC.PN ---
- Subjective Encounter Start Date: 11/15/18 Encounter Start Time: 11:10 Subjective: Patient reports some mild abdominal pain/soreness. No more vomiting. -: Tolerating food well. Blood sugars 300s in hospital on increased -: insulin dose. BPs marginal this AM 99-100 systlic and a bit dizzy. - Objective Resuscitation Status - Order Detail: 11/14/18 17:37 Resuscitation Status Routine Resuscitation Status: FULL: Full Resuscitation MAR Reviewed: Yes Vital Signs & Weight: Vital Signs (12 hours) Temp Pulse Resp BP BP Pulse Ox 11/15/18 07:34 98.2 F 73 20 94/50 L 93 L 11/15/18 06:00 105/58 L 11/15/18 03:56 98.5 F 80 18 92/56 L 95 11/14/18 23:49 98.6 F 90 20 100/51 L 92 L Weight Weight 264 lb 14.4 oz I&O: 11/14/18 11/15/18 11/16/18 06:59 06:59 06:59 Intake Total 1600 Balance 1600 Result Diagrams: 11/15/18 04:08 11/15/18 04:08 Additional Labs: Accuchecks 11/15/18 11/15/18 11/14/18 05:48 03:48 20:46 POC Glucose 278 H 346 H 385 H 11/14/18 11/14/18 11/14/18 18:41 17:32 14:23 POC Glucose 337 H 328 H Greater than 550 H* Phys Exam - Physical Examination Constitutional: NAD Morbidly obese HEENT: moist MMs Respiratory: no wheezing, no rales, no rhonchi Cardiovascular: RRR, no significant murmur Gastrointestinal: soft, positive bowel sounds mild DAVID TTP Musculoskeletal: no edema Neurological: non-focal, moves all 4 limbs Psychiatric: normal affect, A&O x 3 Dx/Plan (1) Hyperglycemia due to type 2 diabetes mellitus Code(s): E11.65 - TYPE 2 DIABETES MELLITUS WITH HYPERGLYCEMIA Status: Acute Qualifiers: Comment: Patient's blood sugars in the 300s on increased dose of Lantus. Will d/ c home on increased long acting insulin dose to follow up with PCP. (2) Acute renal failure Status: Resolved Comment: creatinine normalized with IV fluids abd blood sugar control (3) Viral gastroenteritis Code(s): A08.4 - VIRAL INTESTINAL INFECTION, UNSPECIFIED Status: Acute Comment: improving, likely has some underlying gastroparesis as well - Plan cont current plan of detention this morning * . - Discharge Day Encounter end time: 11:20
[2018-11-15] MEDS: Famotidine 20 MG TAB PO SCH (08:36)
[2018-11-15] MEDS: Acetaminophen 325 MG TAB PO PRN (08:36)
[2018-11-15] MEDS: Gabapentin 300 MG CAP PO SCH (08:36)
[2018-11-15] MEDS: Lisinopril/Hydrochlorothiazide 20/25 mg Tablet PO SCH (08:37)
[2018-11-15] MEDS ORDERED: Enoxaparin Sodium 40 MG/0.4 ML SYRINGE SC SCH (09:00)
[2018-11-15] MEDS ORDERED: Atorvastatin Calcium 40 MG TAB PO SCH (09:00)
[2018-11-15] MEDS ORDERED: Insulin Glargine 23 UNITS in Pre-Filled Syringe 1 EACH SC SCH (09:00)
[2018-11-15 12:38] VITALS: BP 102/53; TEMP 98.6
--- NOTE | 2018-11-16 06:06 | DIS ---
DATE OF ADMISSION: 11/14/2018 DATE OF DISCHARGE: 11/15/2018 PRIMARY CARE PHYSICIAN: Tod Washburn in [place]. REASON FOR ADMISSION: Severe hyperglycemia and acute renal failure. DIAGNOSES AT DISCHARGE: 1. Hyperglycemia due to diabetes mellitus type 2, improved. 2. Acute renal failure, resolved. 3. Viral gastroenteritis, improved. PROCEDURES: None. CONSULTATIONS: None. SUMMARY OF HOSPITAL COURSE: This is a 43-year-old female with a known history of diabetes mellitus type 2, insulin dependent, with poor compliance. She has been getting her insulin adjusted and for some reason decreased significantly in the outpatient setting over the last year. She seems to be on 70/30 50 units twice a day when we last discharged her a year ago, and she came back in taking Levemir 16 units twice a day. She reports severe elevations of blood sugar, has been seen in the ER multiple times, told to follow up with her primary care doctor. She was seen one day before admission, her blood sugar was brought down with some insulin to 300. She came back again the next day with it back up in the 600s. Claims that she did not take her 16 of Levemir in the morning. She has had some nausea and vomiting with mid gastric abdominal pain for a couple of days prior to her presentation, that has actually improved and she ate a little bit the morning of admission. She was seen in the emergency room, noted to have a blood sugar in the 600s. Her creatinine was elevated, though better than in the ER last or in the night before, so she was admitted for control of blood sugar. She was given an increased dose of Lantus the night of admission and the next morning of 23 units. This brought her blood sugar down into the 300s at every check. She was eating well. Still had some stomach soreness and a little bit of nausea, but no vomiting and she is being discharged home. DISCHARGE MANAGEMENT: Discharged home. FOLLOWUP: Follow up with primary care doctor in the next 7 days. ACTIVITY: As tolerated. DIET: Diabetic diet. MEDICATIONS: 1. Levemir 23 units subcu twice a day. 2. Lisinopril/hydrochlorothiazide 20/25 mg one tablet twice a day as needed for cough. The patient is to hold this home medication for next couple of days as her blood pressures have been running in the low 100s here and then she can resume it after she is eating better. 3. Metoclopramide 10 mg before meals and at bedtime as needed for nausea and vomiting, 30 tablets dispensed. 4. Metoprolol succinate 100 mg daily. 5. Spironolactone 25 mg daily. 6. Aspirin 81 mg daily. 7. Risperidone 2 mg twice a day. 8. Gabapentin 300 mg 3 times a day. 9. Atorvastatin 40 mg daily. 10. Flexeril 100 mg 3 times a day as needed. 11. Doxepin 100 mg at night. 12. Alprazolam as needed. Job ID: [id number]
== END 2018-11-15 13:25 | disposition home or self-care (01) ==
LOC: ERS 14:15 → 2SW 17:00
PROVIDERS: ADMIT Emergency Medicine; ATTEND Emergency Medicine
DX: E11.65 Type 2 diabetes mellitus with hyperglycemia (principal); I12.9 Hypertensive chronic kidney disease with stage 1 through stage 4 chronic kidney disease, or unspecified chronic kidney disease; E11.22 Type 2 diabetes mellitus with diabetic chronic kidney disease; N18.3 Chronic kidney disease, stage 3 (moderate); E11.42 Type 2 diabetes mellitus with diabetic polyneuropathy; N17.9 Acute kidney failure, unspecified; A08.4 Viral intestinal infection, unspecified; E78.5 Hyperlipidemia, unspecified; F41.9 Anxiety disorder, unspecified; F31.9 Bipolar disorder, unspecified; Z90.710 Acquired absence of both cervix and uterus; Z98.51 Tubal ligation status; Z98.49 Cataract extraction status, unspecified eye; Z88.2 Allergy status to sulfonamides; Z87.891 Personal history of nicotine dependence; Z79.4 Long term (current) use of insulin; Z79.82 Long term (current) use of aspirin; Z79.899 Other long term (current) drug therapy
CPT/HCPCS: 36415; 36416; 80048; 80053; 81003; 81015; 82010; 82330; 82803; 83690; 84484; 85025; 96361; 96372; 96374; 96375; G0378; J0696; J1650; J1815

== ENCOUNTER 2018-11-23 14:37 | Observation (INO) | payer MEDICAID, SELFPAY ==
[2018-11-23 15:35] LABS: #Basophils 0.1 thou/uL (0.0-0.2); #Eosinphils 0.2 thou/uL (0.0-0.7); #Monocytes 0.6 thou/uL (0.11-0.59); #Neutrophils 5.2 thou/uL (1.40-6.50); %Basophils 0.8 % (0.0-1.0); %Eosinophils 1.9 % (0.0-10.0); %Lymphocytes 32.9 % (21.0-51.0); %Monocytes 6.5 % (0.0-10.0); %Neutrophils 57.9 % (42.0-75.0); Hemoglobin 15.8 g/dL (12.0-16.0); Mean Corpuscular HGB CONC 32.2 g/dL (32.0-36.0); Mean Corpuscular Hemoglobin 29.5 pg (27.0-31.0); Mean Corpuscular Volume 91.6 fL (78.0-98.0); Mean Platelet Volume 9.4 fL (7.4-10.4); Platelet Count 257 thou/uL (130-400); RBC Distribution Width 12.2 % (11.5-14.5); Red Blood Cell (RBC) Count 5.34 mill/uL (4.20-5.40)
--- NOTE | 2018-11-23 15:39 | RAD ---
CHEST 1 VIEW: HISTORY: Chest pain developing 30 minutes prior to admission with vomiting and chest pain. COMPARISON: 08/17/2018. FINDINGS: Minimal linear parenchymal changes in the right lower chest, stable. Heart size is within normal francois its. The lungs are clear. IMPRESSION: Stable linear parenchymal changes in the right lower lung zone. Heart size is normal. No acute intr athoracic disease. POS: [facility]
[2018-11-23 15:58] LABS: ALT (SGPT) 18 U/L (8-55); AST (SGOT) 12 U/L (5-34); Albumin 4.1 g/dL (3.5-5.0); Alkaline Phosphatase 108 U/L (40-150); Anion Gap 13 mmol/L (10-20); BUN (Urea Nitrogen) 11 mg/dL (7.0-18.7); Bilirubin, Total 0.9 mg/dL (0.2-1.2); Calc. Creatinine Clearance 0 mL/min (70-130); Calcium 9.3 mg/dL (7.8-10.44); Carbon Dioxide 26 mmol/L (22-29); Chloride 97 mmol/L (98-107); Estimated GFR-MDRD 56; Lipase 20 U/L (8-78); Potassium 3.7 mmol/L (3.5-5.1); Protein, Total 7.1 g/dL (6.0-8.3); Sodium 132 mmol/L (136-145)
[2018-11-23 16:02] LABS: Glucose 585 mg/dL (70-105)
[2018-11-23] MEDS ORDERED: Aspirin Chewable 81 MG TAB ONE (20:42)
[2018-11-23 21:38] VITALS: BMI 38.2
[2018-11-23 21:39] LABS: Troponin I Less than 0.010 ng/mL (< 0.028)
[2018-11-23] MEDS ORDERED: Dextrose 50% Abboject 50 ML SYRINGE SLOW IVP PRN (21:50)
[2018-11-23] MEDS ORDERED: Dextrose 5% in Water 1,000 ML IV PRN (21:50)
[2018-11-23] MEDS ORDERED: Senokot S 8.6-50 MG TAB PO PRN (21:51)
[2018-11-23] MEDS ORDERED: Ondansetron ODT 4 MG TAB PO PRN (21:51)
[2018-11-23] MEDS ORDERED: Bisacodyl 5 MG TAB PO PRN (21:51)
[2018-11-23] MEDS ORDERED: cloNIDine 0.1 MG TAB PO PRN (21:51)
[2018-11-23] MEDS ORDERED: hydrALAZINE 20 MG/ML VIAL SLOW IVP PRN (21:51)
[2018-11-23] MEDS ORDERED: Benzonatate 100 MG CAP PO PRN (21:51)
[2018-11-23] MEDS ORDERED: Nitroglycerin 0.4 MG TAB (25 Tab Bottle) SL PRN ×2 (21:51→22:23)
[2018-11-23] MEDS ORDERED: Diabetic Tussin 200 MG/10 ML UDCUP PO PRN (21:51)
[2018-11-23] MEDS ORDERED: Calcium Carbonate 500 MG ChewTAB PO PRN (21:51)
[2018-11-23] MEDS ORDERED: Ondansetron PF 4 MG/2 ML Vial IVP PRN ×2 (21:51)
[2018-11-23] MEDS ORDERED: Acetaminophen 325 MG TAB PO PRN (21:51)
[2018-11-23] MEDS: Sodium Chloride 0.9% 1,000 ML IV SCH (22:06)
[2018-11-23] MEDS ORDERED: INSULIN DETEMIR 23 UNIT SQ SCH (22:23)
[2018-11-23] MEDS ORDERED: ALPRAZolam 1 MG TAB PO PRN (22:23)
[2018-11-23] MEDS ORDERED: Insulin Glargine 23 UNITS in Pre-Filled Syringe SC SCH (22:45)
[2018-11-23] MEDS ORDERED: Doxepin HCl 25 MG CAP PO SCH (23:00)
[2018-11-23] MEDS ORDERED: Gabapentin 300 MG CAP PO SCH (23:00)
[2018-11-23] MEDS ORDERED: Cyclobenzaprine 10 MG TAB PO SCH (23:00)
[2018-11-23] MEDS ORDERED: Atorvastatin Calcium 40 MG TAB PO SCH (23:00)
[2018-11-23] MEDS ORDERED: Lisinopril/Hydrochlorothiazide 20/25 mg Tablet PO SCH (23:00)
[2018-11-24 00:02] LABS: Troponin I Less than 0.010 ng/mL (< 0.028)
--- NOTE | 2018-11-24 00:16 | HP ---
PRIMARY CARE PHYSICIAN: Tod. CHIEF COMPLAINT: Chest pain and fall. HISTORY OF PRESENTING ILLNESS: Ms. Olivares is a 43-year-old uncontrolled diabetic with multiple hospitalization as recent as earlier this month for hyperglycemia, came back to the ER with complaints of falling. She told the emergency room physician that she has passed out, but when I asked her, she was quite evasive about this and did not mention any passing-out spells. History is mainly obtained by the patient herself and electronic medical records have been reviewed. During her last hospitalization, she was found to be severely hyperglycemic and her Lantus dose was increased to 23 units b.i.d. Ms. Olivares reports that she has been taking her Lantus, but was taken off her oral hypoglycemics and her sliding scale in the recent past by primary care physician. She states that she is trying to watch what she eats, but has been failing and her sugars have been running high. The patient is a very poor historian and she does not give a straight answer to most of my questions. She states that she was walking her child and she fell, but according to the ER note, it said that she blacked out. She also gave the ER physician, complains of chest tightness, but when I asked her, she did not specify if she really had some chest pain or not. She, however, has multiple risk factors including uncontrolled diabetes, morbid obesity, family history of heart disease in her mother, as well as tobacco abuse, so she is now being admitted for further evaluation and rule out ACS. Her cardiac enzymes and EKG done in the emergency room are unremarkable. She was found to have hyperglycemia once again with a blood sugar of 585 without evidence of DKA in the ER. She was treated with insulin with repeat blood sugar of 293 at this time. On my examination in her room right now, she is eating a big sandwich laden with mayonnaise, seems to be some takeout food that she has gotten from her . She does report polyuria and excessive thirst. She has had multiple ER visits last year and this year with regard to high blood sugars. PAST MEDICAL HISTORY: 1. Diabetes mellitus, insulin dependent. 2. Chronic kidney disease, stage 3. 3. Hypertension. 4. Dyslipidemia. 5. Peripheral neuropathy. 6. Chronic back pain. 7. Morbid obesity. PSYCHIATRIC HISTORY: Bipolar disorder and anxiety. PAST SURGICAL HISTORY: Hysterectomy, tubal ligation, and cataract surgery. ALLERGIES: INCLUDE BACTRIM. SOCIAL HISTORY: She smokes about 2 to 3 cigarettes daily, has been on and off smoking, trying to quit. No history of drug or alcohol abuse. FAMILY HISTORY: Heart attack in her mother, who also had lupus and kidney disease in a pacemaker. Dad had diabetes. HOME MEDICATIONS: As follows: 1. Doxepin 100 mg daily. 2. Flexeril 10 mg p.o. t.i.d. 3. Lipitor 40 mg daily. 4. Aspirin 81 mg daily. 5. Xanax 2 mg p.o. at bedtime p.r.n. 6. Lisinopril/hydrochlorothiazide 20/25 p.o. b.i.d. 7. Levemir 23 units b.i.d. 8. Gabapentin 300 t.i.d. 9. Aldactone 25 daily. 10. Metoprolol succinate 100 mg daily. 11. Reglan 5 mg p.o. b.i.d. 12. Nitroglycerin sublingual p.r.n. REVIEW OF SYSTEMS: A 12-point review of system is done, it is negative except for those mentioned in the history and physical. LABORATORY DATA: Her CBC is unremarkable. D-dimer less than 0.27. Serum chemistry show blood sugar of 585 with a sodium of 132, creatinine 1.27, which is at her baseline. Troponin x2 is less than 0.010. Lipase is normal. IMAGING STUDIES: 12-lead EKG by my review shows no evidence to suggest any acute ACS. ST and T-waves are normal. Normal sinus rhythm. Chest x-ray by my review shows no acute intrathoracic disease. No pleural effusion, edema, or infiltrate. PHYSICAL EXAMINATION: VITAL SIGNS: Most recent vital signs; temperature 97.9, pulse of 87, respirations 18, saturating 100% on room air, and blood pressure 131/81. GENERAL: No acute distress. As mentioned above, she is sitting comfortably in bed. Her family is at bedside and she is eating a takeout meal. Awake, alert, and oriented x3. HEENT: Mucous membranes are moist and pink. No oropharyngeal exudate or erythema. Head is normocephalic and atraumatic. Pupils are equal and reactive to light and accommodation. Extraocular movements are intact. NECK: Supple without any lymphadenopathy, JVD, or bruit. CHEST: Clear to auscultation without any wheezing, rales, or rhonchi. HEART: Rate rhythm is regular. ABDOMEN: Morbidly obese, soft, nontender, nondistended with positive bowel sounds. EXTREMITIES: Free of any cyanosis, clubbing, or edema. NEUROLOGIC: Nonfocal. SKIN: Free of any rashes or bruises. Feels warm and dry to touch. PSYCHIATRIC: Normal affect. IMPRESSION AND PLAN: 1. Chest pain. The patient's last cardiac workup was in 2017 in October when she had a stress test that was normal. Her transthoracic echocardiogram done in 2015 was also normal. Her cardiac enzymes and EKG are quite reassuring at this time, but however, given her very high risk as mentioned above, we will repeat a stress test at this time and monitor her on telemetry unit. She will be continued on her aspirin and Lipitor for now. We will continue her beta-mariella and lisinopril as well. Monitor blood pressure and provide strict control. D-dimer was within the normal limits, so the likelihood of pulmonary embolism is unlikely. 2. Hyperglycemia with uncontrolled diabetes mellitus. I am not sure why the patient's blood sugar is out of control and requiring multiple ER visits, but if I have to guess it most likely is because of her dietary habits. The patient is overweight, hypertensive, and when asked specifically, she could not tell me that what kind of foods she should be avoided. She states that she has tried in the past, but I feel that she would benefit from a dietitian consult and more education about diabetic diet and weight loss. I have briefly discussed this with her tonight and I will continue her on Lantus and add insulin sliding scale. Her blood sugar is much better for now. We will give her some normal saline as she is exhibiting signs and symptoms of intravascular dehydration due to hyperglycemia. There is no evidence of diabetic ketoacidosis at this time. I think that she would highly benefit from having a bolus insulin on top of her basal insulin at home. I recommend starting her on insulin sliding scale with continuation of her Lantus for discharge. 3. Hypertension. Restart her home medications and monitor. 4. Morbid obesity. Strict diet and weight loss are advised to prevent cardiac and renal disease. 5. Dyslipidemia. Restart her atorvastatin. 6. Deep venous thrombosis and gastrointestinal prophylaxis. 7. Walking program. DISPOSITION: Ms. Olivares is currently being admitted under observation status to rule out ACS and for hyperglycemia. Further management will depend upon her clinical course. Job ID: [id number]
[2018-11-24 05:22] LABS: Anion Gap 11 mmol/L (10-20); BUN (Urea Nitrogen) 11 mg/dL (7.0-18.7); Calc. Creatinine Clearance 157 mL/min (70-130); Calcium 8.7 mg/dL (7.8-10.44); Carbon Dioxide 22 mmol/L (22-29); Chloride 102 mmol/L (98-107); Estimated GFR-MDRD 90; Glucose 363 mg/dL (70-105); Potassium 3.6 mmol/L (3.5-5.1); Sodium 131 mmol/L (136-145)
[2018-11-24] MEDS: HumaLOG 300 UNITS/3 ML VIAL SC PRN ×3 (06:06→21:13)
[2018-11-24] MEDS: Spironolactone 25 MG TAB PO SCH (09:12)
[2018-11-24] MEDS: Cyclobenzaprine 10 MG TAB PO SCH ×3 (09:12→23:14)
[2018-11-24] MEDS: Insulin Glargine 23 UNITS in Pre-Filled Syringe SC SCH ×2 (09:12→21:13)
[2018-11-24] MEDS: Gabapentin 300 MG CAP PO SCH ×3 (09:12→23:14)
[2018-11-24] MEDS: Aspirin 81 mg Enteric Coated Tablet PO SCH (09:12)
[2018-11-24] MEDS: Enoxaparin Sodium 40 MG/0.4 ML SYRINGE SC SCH (09:13)
--- NOTE | 2018-11-24 09:23 | ULT ---
BILATERAL CAROTID DUPLEX ULTRASOUND: HISTORY: Syncope. TECHNIQUE: Weinberg scale ultrasound with color flow and spectral Doppler imaging of the extracranial carotid artery systems is performed bilaterally. FINDINGS: No significant plaque formation or intimal wall thickening is seen on either side. The peak systolic velocity in the right ICA measures 60 cm/s with an end-diastolic velocity of 23 cm/ s and a systolic ratio of 0.6. The peak systolic velocity in the left ICA measures 53 cm/s with an end-diastolic velocity of 23 cm/s and a systolic ratio of 0.6. Flow in both vertebral arteries remains antegrade. IMPRESSION: No evidence of hemodynamically significant stenosis. POS: [facility]
[2018-11-24] MEDS: Lisinopril/Hydrochlorothiazide 20/25 mg Tablet PO SCH ×2 (10:37→23:14)
[2018-11-24] MEDS: Sodium Chloride 0.9% 1,000 ML IV SCH ×3 (15:55→17:51)
--- NOTE | 2018-11-24 15:57 | PDOC.PN ---
- Subjective Encounter Start Date: 11/24/18 Encounter Start Time: 14:15 Subjective: Patient states she has been dizzy today -: Was taken for a stress test but it was aborted due her BP being too low. - Objective Vital Signs & Weight: Vital Signs (12 hours) Temp Pulse Resp BP BP Pulse Ox 11/24/18 11:50 98.0 F 84 20 99/58 L 98 11/24/18 10:37 88 104/57 L 11/24/18 08:15 97.6 F 88 16 94/59 L 98 11/24/18 04:07 97.8 F 12 L 16 96/54 L 98 Weight Weight 114.668 kg I&O: 11/23/18 11/24/18 11/25/18 06:59 06:59 06:59 Intake Total 1001 Output Total 250 Balance 751 Result Diagrams: 11/23/18 15:06 11/24/18 04:45 Additional Labs: Accuchecks 11/24/18 11/24/18 11/23/18 11:54 09:17 21:36 POC Glucose 184 H 209 H 293 H 11/23/18 19:11 POC Glucose 293 H Phys Exam - Physical Examination HEENT: PERRLA, moist MMs Neck: no nodes, no JVD Respiratory: no wheezing, clear to auscultation bilateral Cardiovascular: RRR, no significant murmur Gastrointestinal: soft, non-tender Musculoskeletal: no edema, pulses present Neurological: non-focal, normal sensation, moves all 4 limbs Lymphatic: no nodes Psychiatric: normal affect, A&O x 3 Skin: no rash, normal turgor, cap refill <2 seconds Dx/Plan (1) Chest pain Code(s): R07.9 - CHEST PAIN, UNSPECIFIED Status: Acute (2) Diabetes mellitus Code(s): E11.9 - TYPE 2 DIABETES MELLITUS WITHOUT COMPLICATIONS Status: Chronic Qualifiers: Diabetes mellitus type: type 2 Diabetes mellitus terminal gauger insulin use: with terminal gauger use Diabetes mellitus complication status: with neurologic complications Diabetes mellitus complication detail: with polyneuropathy Qualified Code(s): E11.42 - Type 2 diabetes mellitus with diabetic polyneuropathy; Z79.4 - nursing home (current) use of insulin (3) HLD (hyperlipidemia) Code(s): E78.5 - HYPERLIPIDEMIA, UNSPECIFIED Status: Chronic (4) HTN (hypertension) Code(s): I10 - ESSENTIAL (PRIMARY) HYPERTENSION Status: Chronic Qualifiers: Hypertension type: essential hypertension Qualified Code(s): I10 - Essential (primary) hypertension - Plan stress test tomorrow, will hold her BP meds until she is closer to baseline -: Continue accuchecks and will have mild SS coverage as needed -: 500ml IV bolus now and will continue to monitor vital signs * . Review of Systems - Review of Systems Cardiovascular: chest pain, light headedness - Medications/Allergies Allergies/Adverse Reactions: Allergies Allergy/AdvReac Type Severity Reaction Status Date / Time sulfamethoxazole Allergy Hives Verified 11/23/18 21:51 [From Bactrim] trimethoprim [From Bactrim] Allergy Hives Verified 11/23/18 21:51 Medications: Current Medications Acetaminophen (Tylenol) 650 mg PO Q4H PRN PRN Reason: Headache/Fever/Mild Pain (1-3) Alprazolam (Xanax) 2 mg PO HS PRN PRN Reason: Insomnia Aspirin (Ecotrin) 81 mg PO DAILY [facility] Last Admin: 11/24/18 09:12 Dose: 81 mg Atorvastatin Calcium (Lipitor) 40 mg PO HS [facility] Benzonatate (Tessalon) 100 mg PO Q6H PRN PRN Reason: Cough Bisacodyl (Dulcolax) 10 mg PO DAILYPRN PRN PRN Reason: Constipation Calcium Carbonate (Tums) 1,000 mg PO Q4H PRN PRN Reason: Heartburn or Indigestion Clonidine (Catapres) 0.1 mg PO Q4H PRN PRN Reason: SBP > 160____ Cyclobenzaprine HCl (Flexeril) 10 mg PO TID [facility] Last Admin: 11/24/18 15:54 Dose: Not Given Dextrose/Water (Dextrose 50%) 25 gm SLOW IVP PRN PRN PRN Reason: Hypoglycemia Doxepin HCl (Sinequan) 100 mg PO HS [facility] Enoxaparin Sodium (Lovenox) 40 mg SC 0900 [facility] Last Admin: 11/24/18 09:13 Dose: 40 mg Gabapentin (Neurontin) 300 mg PO TID [facility] Last Admin: 11/24/18 15:55 Dose: Not Given Glucagon (Glucagon) 1 mg IM PRN PRN PRN Reason: Hypoglycemia Guaifenesin (Robitussin Sf) 200 mg PO Q4H PRN PRN Reason: Cough Lisinopril/HCTZ (Prinizide 20-25) 1 tab PO BID [facility] Last Admin: 11/24/18 10:37 Dose: 1 tab Hydralazine HCl (Apresoline) 10 mg SLOW IVP Q4H PRN PRN Reason: SBP > 180 and HR < 70 Dextrose/Water (D5w) 1,000 mls @ 0 mls/hr IV .Q0M PRN PRN Reason: Hypoglycemia Sodium Chloride (Normal Saline 0.9%) 1,000 mls @ 75 mls/hr IV .[id number] [facility] Last Admin: 11/24/18 15:55 Dose: Not Given Insulin Glargine 23 units/ (Miscellaneous Medication) 0.23 mls @ 0 mls/hr SC BID [facility] Last Admin: 11/24/18 09:12 Dose: 0.23 mls Insulin Human Lispro (Humalog) 0 units SC .AGGRESSIVE SLIDING PRN PRN Reason: Aggressive Correctional Scale Last Admin: 11/24/18 06:06 Dose: 13 unit Insulin Human Lispro (Humalog) 0 units SC .BEDTIME SLIDING SC PRN PRN Reason: Bedtime Correctional Scale Metoprolol Succinate (Toprol Xl) 100 mg PO DAILY [facility] Last Admin: 11/24/18 09:12 Dose: 100 mg Nitroglycerin (Nitrostat) 0.4 mg SL Q5MIN PRN PRN Reason: Chest Pain Nitroglycerin (Nitrostat) 0.4 mg SL PRN PRN PRN Reason: Chest Pain Ondansetron HCl (Zofran Odt) 4 mg PO Q6H PRN PRN Reason: Nausea/Vomiting Ondansetron HCl (Zofran) 4 mg IVP Q6H PRN PRN Reason: Nausea/Vomiting Senna/Docusate Sodium (Senokot S) 2 tab PO BID PRN PRN Reason: Constipation Spironolactone (Aldactone) 25 mg PO DAILY [facility] Last Admin: 11/24/18 09:12 Dose: 25 mg
[2018-11-24] MEDS ORDERED: Sodium Chloride 0.9% 500 ML IV SCH (16:15)
--- NOTE | 2018-11-24 20:24 | PDOC.EVN ---
Event Note - Event Note Event Note: Chart reviewed. Pt seen with Krystal O'irina. Pt says she feels weak, on and off chest pain. VSS S1, S2, reg Lungs CTA A/P 1. Chest pain: for stress test Discussed plan of care with Krystal.
[2018-11-24] MEDS: Atorvastatin Calcium 40 MG TAB PO SCH (21:13)
[2018-11-24] MEDS: Doxepin HCl 25 MG CAP PO SCH (23:14)
[2018-11-25] MEDS: Sodium Chloride 0.9% 1,000 ML IV SCH ×3 (01:24→18:06)
[2018-11-25] MEDS: HumaLOG 300 UNITS/3 ML VIAL SC PRN ×2 (05:05→18:02)
[2018-11-25] MEDS: Insulin Glargine 23 UNITS in Pre-Filled Syringe SC SCH ×2 (09:24→20:27)
[2018-11-25] MEDS: Aspirin 81 mg Enteric Coated Tablet PO SCH (09:26)
[2018-11-25] MEDS: Enoxaparin Sodium 40 MG/0.4 ML SYRINGE SC SCH (09:26)
[2018-11-25 12:42] LABS: #Eosinphils 0.2 thou/uL (0.0-0.7); #Lymphocytes 3.7 thou/uL (1.20-3.40); #Monocytes 0.4 thou/uL (0.11-0.59); #Neutrophils 3.3 thou/uL (1.40-6.50); %Basophils 0.4 % (0.0-1.0); %Eosinophils 2.2 % (0.0-10.0); %Lymphocytes 48.1 % (21.0-51.0); %Monocytes 5.6 % (0.0-10.0); %Neutrophils 43.7 % (42.0-75.0); Hemoglobin 13.3 g/dL (12.0-16.0); Mean Corpuscular HGB CONC 32.2 g/dL (32.0-36.0); Mean Corpuscular Hemoglobin 29.5 pg (27.0-31.0); Mean Corpuscular Volume 91.5 fL (78.0-98.0); Mean Platelet Volume 8.7 fL (7.4-10.4); Platelet Count 236 thou/uL (130-400); RBC Distribution Width 12.1 % (11.5-14.5); Red Blood Cell (RBC) Count 4.52 mill/uL (4.20-5.40); White Blood Cell (WBC) Count 7.6 thou/uL (4.8-10.8)
--- NOTE | 2018-11-25 12:46 | CT ---
CT BRAIN WITHOUT CONTRAST: HISTORY: Blurry vision in the left eye. FINDINGS: Comparison is made with the exam of 08/28/2018. FINDINGS: No evidence of infarct, hemorrhage, midline shift, or abnormal extraaxial fluid collections are seen. The ventricular size is stable and the basilar cisterns are patent. The bony calvarium is intact. The visualized paranasal sinuses and mastoid air cells are well aerated. IMPRESSION: No CT evidence of acute intracranial process. POS: [facility]
[2018-11-25 12:55] LABS: ALT (SGPT) 15 U/L (8-55); AST (SGOT) 10 U/L (5-34); Albumin 3.4 g/dL (3.5-5.0); Alkaline Phosphatase 87 U/L (40-150); Anion Gap 10 mmol/L (10-20); BUN (Urea Nitrogen) 12 mg/dL (7.0-18.7); Bilirubin, Total 0.9 mg/dL (0.2-1.2); Calc. Creatinine Clearance 154 mL/min (70-130); Calcium 8.9 mg/dL (7.8-10.44); Carbon Dioxide 24 mmol/L (22-29); Chloride 106 mmol/L (98-107); Estimated GFR-MDRD 88; Globulin 2.5 g/dL (2.4-3.5); Glucose 256 mg/dL (70-105); Potassium 3.5 mmol/L (3.5-5.1); Protein, Total 5.9 g/dL (6.0-8.3); Sodium 136 mmol/L (136-145)
--- NOTE | 2018-11-25 13:13 | NM ---
CARDIAC SPECT: HISTORY: An 49-year-old female with chest pain, hypertension, diabetes, dyslipidemia, smoker, peripheral vascu lar disease. TECHNIQUE: A myocardial perfusion scan is performed using the single-isotope 2-day protocol with 31 mCi Techneti um 99m sestamibi injected intravenously for the stress and rest images. Pharmacologic stress with ad enosine is monitored and interpreted by Dr. Goodman. FINDINGS: There is a mild defect in the distal anteroseptal wall on both stress and rest images. This appears better on rest compared to stress. These findings may either be due to a breast attenuation artifact or mild ischemia. The TID ratio measures 1.39. GATED SPECT LVEF: 39%. WALL MOTION EXAM: Global hypokinesis. IMPRESSION: 1. TID ratio is 1.39 2. Breast attenuation artifact versus mild ischemia in the distal anteroseptal wall. POS: [facility]
[2018-11-25] MEDS: Cyclobenzaprine 10 MG TAB PO SCH ×3 (13:58→22:45)
[2018-11-25] MEDS: Spironolactone 25 MG TAB PO SCH (13:58)
[2018-11-25] MEDS: Lisinopril/Hydrochlorothiazide 20/25 mg Tablet PO SCH ×2 (13:58→20:26)
[2018-11-25] MEDS: Gabapentin 300 MG CAP PO SCH ×3 (13:58→20:25)
--- NOTE | 2018-11-25 14:21 | PDOC.PN ---
- Subjective Encounter Start Date: 11/25/18 Encounter Start Time: 13:30 Subjective: patient examined after she got back from her stress test -: reports getting a little dizzy and winded while taking a shower -: Reports she has been getting SOB with exertion for over a month Reports feeling light headed and her vision in her right eye feels a little blurry, CT head ordered and is negative. Neuro exam is normal - Objective Vital Signs & Weight: Vital Signs (12 hours) Temp Pulse Resp BP BP Pulse Ox 11/25/18 13:58 87 11/25/18 12:04 97.3 F L 87 20 111/61 100 11/25/18 07:41 98.2 F 76 16 115/60 98 11/25/18 04:45 98.6 F 80 18 111/69 96 Weight Weight 114.532 kg I&O: 11/24/18 11/25/18 11/26/18 06:59 06:59 06:59 Intake Total 1001 3429 Output Total 250 1600 Balance 751 1829 Result Diagrams: 11/25/18 12:13 11/25/18 12:13 Additional Labs: Accuchecks 11/25/18 11/25/18 11/25/18 12:10 09:42 05:04 POC Glucose 247 H 191 H 312 H 11/24/18 11/24/18 20:59 17:03 POC Glucose 288 H 302 H Phys Exam - Physical Examination HEENT: PERRLA, moist MMs no erythema is noted submandibular node enlarged/tender Respiratory: clear to auscultation bilateral Cardiovascular: RRR Gastrointestinal: soft, non-tender Musculoskeletal: no edema, pulses present Neurological: non-focal, normal sensation Psychiatric: normal affect, A&O x 3 Dx/Plan (1) Chest pain Code(s): R07.9 - CHEST PAIN, UNSPECIFIED Status: Acute (2) Diabetes mellitus Code(s): E11.9 - TYPE 2 DIABETES MELLITUS WITHOUT COMPLICATIONS Status: Chronic Qualifiers: Diabetes mellitus type: type 2 Diabetes mellitus mcfp insulin use: with intermediate school teacher use Diabetes mellitus complication status: with neurologic complications Diabetes mellitus complication detail: with polyneuropathy Qualified Code(s): E11.42 - Type 2 diabetes mellitus with diabetic polyneuropathy; Z79.4 - terminal supervisor (current) use of insulin (3) HLD (hyperlipidemia) Code(s): E78.5 - HYPERLIPIDEMIA, UNSPECIFIED Status: Chronic (4) HTN (hypertension) Code(s): I10 - ESSENTIAL (PRIMARY) HYPERTENSION Status: Chronic Qualifiers: Hypertension type: essential hypertension Qualified Code(s): I10 - Essential (primary) hypertension - Plan EF decr to 37% today from 60-65% from 2016, reports COOPER, possible ischemia -: on Stress. Cardiology consulted. -: Reports dizzy, blurry vision in right eye today, CT head normal, -: Neuro on exam normal, Will order strept test and meds for constipation * . Review of Systems - Review of Systems Eyes: Other ENT: Throat Pain, Throat Swelling Respiratory: Shortness of Breath Cardiovascular: light headedness Gastrointestinal: Constipation (Patient states she has a sore throat today, states she feels like the vision in her right eye is blurry, became SOB/dizzy in shower today) - Medications/Allergies Allergies/Adverse Reactions: Allergies Allergy/AdvReac Type Severity Reaction Status Date / Time sulfamethoxazole Allergy Hives Verified 11/23/18 21:51 [From Bactrim] trimethoprim [From Bactrim] Allergy Hives Verified 11/23/18 21:51 Medications: Current Medications Acetaminophen (Tylenol) 650 mg PO Q4H PRN PRN Reason: Headache/Fever/Mild Pain (1-3) Alprazolam (Xanax) 2 mg PO HS PRN PRN Reason: Insomnia Aspirin (Ecotrin) 81 mg PO DAILY [facility] Last Admin: 11/25/18 09:26 Dose: 81 mg Atorvastatin Calcium (Lipitor) 40 mg PO HS [facility] Last Admin: 11/24/18 21:13 Dose: 40 mg Benzonatate (Tessalon) 100 mg PO Q6H PRN PRN Reason: Cough Bisacodyl (Dulcolax) 10 mg PO DAILYPRN PRN PRN Reason: Constipation Calcium Carbonate (Tums) 1,000 mg PO Q4H PRN PRN Reason: Heartburn or Indigestion Clonidine (Catapres) 0.1 mg PO Q4H PRN PRN Reason: SBP > 160____ Cyclobenzaprine HCl (Flexeril) 10 mg PO TID [facility] Last Admin: 11/25/18 13:58 Dose: Not Given Dextrose/Water (Dextrose 50%) 25 gm SLOW IVP PRN PRN PRN Reason: Hypoglycemia Doxepin HCl (Sinequan) 100 mg PO HS [facility] Last Admin: 11/24/18 23:14 Dose: Not Given Enoxaparin Sodium (Lovenox) 40 mg SC 0900 [facility] Last Admin: 11/25/18 09:26 Dose: 40 mg Gabapentin (Neurontin) 300 mg PO TID [facility] Last Admin: 11/25/18 13:58 Dose: Not Given Glucagon (Glucagon) 1 mg IM PRN PRN PRN Reason: Hypoglycemia Guaifenesin (Robitussin Sf) 200 mg PO Q4H PRN PRN Reason: Cough Lisinopril/HCTZ (Prinizide 20-25) 1 tab PO BID [facility] Last Admin: 11/25/18 13:58 Dose: Not Given Hydralazine HCl (Apresoline) 10 mg SLOW IVP Q4H PRN PRN Reason: SBP > 180 and HR < 70 Dextrose/Water (D5w) 1,000 mls @ 0 mls/hr IV .Q0M PRN PRN Reason: Hypoglycemia Insulin Glargine 23 units/ (Miscellaneous Medication) 0.23 mls @ 0 mls/hr SC BID [facility] Last Admin: 11/25/18 09:24 Dose: 0.23 mls Sodium Chloride (Normal Saline 0.9%) 1,000 mls @ 125 mls/hr IV .Q8H [facility] Last Admin: 11/25/18 01:24 Dose: 1,000 mls Insulin Human Lispro (Humalog) 0 units SC .AGGRESSIVE SLIDING PRN PRN Reason: Aggressive Correctional Scale Last Admin: 11/24/18 17:50 Dose: 11 unit Insulin Human Lispro (Humalog) 0 units SC .BEDTIME SLIDING SC PRN PRN Reason: Bedtime Correctional Scale Last Admin: 11/25/18 05:05 Dose: 4 unit Metoprolol Succinate (Toprol Xl) 100 mg PO DAILY [facility] Last Admin: 11/25/18 13:58 Dose: Not Given Nitroglycerin (Nitrostat) 0.4 mg SL Q5MIN PRN PRN Reason: Chest Pain Nitroglycerin (Nitrostat) 0.4 mg SL PRN PRN PRN Reason: Chest Pain Ondansetron HCl (Zofran Odt) 4 mg PO Q6H PRN PRN Reason: Nausea/Vomiting Ondansetron HCl (Zofran) 4 mg IVP Q6H PRN PRN Reason: Nausea/Vomiting Senna/Docusate Sodium (Senokot S) 2 tab PO BID PRN PRN Reason: Constipation Spironolactone (Aldactone) 25 mg PO DAILY [facility] Last Admin: 11/25/18 13:58 Dose: Not Given
--- NOTE | 2018-11-25 15:21 | PDOC.EVN ---
Event Note - Event Note Event Note: Chart reviewed. Patient seen. No chest pain, shortness of breath, fevers or chills. Feels weak VSS. S1, S2, RRR Lungs CTA. A/P: Abnormal stress test: Await cardiology input. Discussed plan of care with CONCRETE BATCHER Krystal Patino'irina.
--- NOTE | 2018-11-25 16:49 | CON ---
DATE OF CONSULTATION: 11/25/2018 REASON FOR CONSULTATION: Chest pain. HISTORY OF PRESENT ILLNESS: Ms. Olivares is a pleasant 43-year-old female, who comes to the hospital for an episode of chest pain. She describes it as a stabbing pain on the left side of her chest, invaded to the back. She asked her boyfriend to bring her in because of this. She was admitted for rule out. She has three negative troponins completely undetectable and underwent stress testing. She was found to have possible anterior ischemia versus breast attenuation artifact with an EF of 39%. She has been evaluated in the past. Dr. Spivey has seen her in the past and actually has had a heart catheterization in 2016 at the [facility], at which point, she had 20% lesions in her LAD and left circumflex, nothing flow limiting. She also has had two other stress test in the last 3-4 years and they have shown no ischemia with normal EF. She is diabetic and her sugars have been not well controlled recently. PAST MEDICAL HISTORY: 1. Type 2 diabetes. 2. Mild coronary artery disease. 3. Chronic kidney disease stage 3. 4. Hypertension. 5. Hyperlipidemia. 6. Peripheral neuropathy. 7. Chronic back pain. 8. Morbid obesity. PSYCHIATRIC HISTORY: Bipolar and anxiety. PAST SURGICAL HISTORY: 1. Hysterectomy. 2. Tubal ligation. 3. Cataract surgery. ALLERGIES: BACTRIM. SOCIAL HISTORY: Continued to smoke about 2-3 cigarettes a day. No drug or alcohol use. FAMILY HISTORY: Mother with PA. Children has also lupus and kidney disease. Father with diabetes. OUTPATIENT MEDICATIONS: Include: 1. Doxepin. 2. Flexeril. 3. Lipitor 40 a day. 4. Aspirin 81 a day. 5. Xanax. 6. Lisinopril/hydrochlorothiazide 20/25 b.i.d. 7. Levemir 23 units b.i.d. 8. Gabapentin. 9. Aldactone 25 a day. 10. Metoprolol succinate 100 mg daily. 11. Reglan. 12. Sublingual nitroglycerin. ALLERGIES: BACTRIM. REVIEW OF SYSTEMS: A 12-point review of systems was done and was found to be negative unless stated in the history of present illness. PHYSICAL EXAMINATION: VITAL SIGNS: Temperature 97.3, pulse 87, respiratory rate 20, saturating 100% on room air, blood pressure 111/61. GENERAL: Awake, alert, and oriented x3. No distress. HEENT: Normocephalic and atraumatic. NECK: Supple. LUNGS: Clear. CARDIOVASCULAR: S1, S2. No S3 or S4. No murmurs. ABDOMEN: Soft, positive bowel sounds. EXTREMITIES: No edema. SKIN: Warm and dry. LABORATORY DATA: Laboratory work was reviewed. CBC unremarkable. Coags, D-dimer was less than assay limit. Chemistries are normal except for elevated glucose and albumin of 3.4. Troponin was completely undetectable x3. Lipase was 20. EKG was reviewed. ASSESSMENT: 1. Chest pain. 2. History of mild coronary artery disease. 3. Uncontrolled diabetes. 4. Ongoing tobacco use. 5. Morbid obesity. PLAN: 1. We will get an echocardiogram. We can get a good view of the LV and see that LV function is actually normal. She may need a repeat heart catheterization as she has a possible anterior ischemia and an equivocal test with a reduced EF. 2. We will decide on further risk stratification depending on the results of echocardiogram. Thank you for letting me to participate in the care of your patient. We will follow. Job ID: [id number]
[2018-11-25] MEDS: Atorvastatin Calcium 40 MG TAB PO SCH (20:25)
[2018-11-25] MEDS: Doxepin HCl 25 MG CAP PO SCH (22:45)
[2018-11-26] MEDS: Sodium Chloride 0.9% 1,000 ML IV SCH (01:39)
[2018-11-26 06:14] LABS: #Basophils 0.1 thou/uL (0.0-0.2); #Eosinphils 0.2 thou/uL (0.0-0.7); #Lymphocytes 3.1 thou/uL (1.20-3.40); #Monocytes 0.4 thou/uL (0.11-0.59); #Neutrophils 3.5 thou/uL (1.40-6.50); %Basophils 0.9 % (0.0-1.0); %Eosinophils 2.6 % (0.0-10.0); %Lymphocytes 42.6 % (21.0-51.0); %Monocytes 5.5 % (0.0-10.0); %Neutrophils 48.5 % (42.0-75.0); Hemoglobin 12.9 g/dL (12.0-16.0); Mean Corpuscular HGB CONC 32.5 g/dL (32.0-36.0); Mean Corpuscular Hemoglobin 29.6 pg (27.0-31.0); Mean Corpuscular Volume 91.1 fL (78.0-98.0); Mean Platelet Volume 8.9 fL (7.4-10.4); Platelet Count 206 thou/uL (130-400); Red Blood Cell (RBC) Count 4.37 mill/uL (4.20-5.40); White Blood Cell (WBC) Count 7.3 thou/uL (4.8-10.8)
[2018-11-26] MEDS: HumaLOG 300 UNITS/3 ML VIAL SC PRN ×3 (06:16→17:43)
[2018-11-26 06:31] LABS: ALT (SGPT) 12 U/L (8-55); AST (SGOT) 9 U/L (5-34); Albumin 3.1 g/dL (3.5-5.0); Alkaline Phosphatase 75 U/L (40-150); Anion Gap 9 mmol/L (10-20); BUN (Urea Nitrogen) 10 mg/dL (7.0-18.7); Bilirubin, Total 0.5 mg/dL (0.2-1.2); Calc. Creatinine Clearance 176 mL/min (70-130); Calcium 8.7 mg/dL (7.8-10.44); Carbon Dioxide 25 mmol/L (22-29); Chloride 106 mmol/L (98-107); Estimated GFR-MDRD Greater than 90; Globulin 2.3 g/dL (2.4-3.5); Glucose 268 mg/dL (70-105); Potassium 3.6 mmol/L (3.5-5.1); Protein, Total 5.4 g/dL (6.0-8.3); Sodium 136 mmol/L (136-145)
--- NOTE | 2018-11-26 08:53 | PDOC.CTH ---
Cardiology Progress Note - Subjective The pt seen and examined. Having Echo this AM. No overnight events. No cardiac complaints. - Objective Vital Signs Temp Pulse Resp BP BP BP BP 11/26/18 07:23 98.5 F 65 18 135/81 11/26/18 03:49 97.8 F 65 18 134/76 11/26/18 00:35 128/78 125/75 134/83 11/25/18 21:51 90 106/64 Pulse Ox 11/26/18 07:23 99 11/26/18 03:49 98 11/26/18 00:35 11/25/18 21:51 Weight 264 lb 9.6 oz 11/25/18 11/26/18 11/27/18 06:59 06:59 06:59 Intake Total 3429 2675 Output Total 1600 3100 Balance 1829 -425 - Physical Examination General/Neuro: alert & oriented x3 Neck: no JVD present Lungs: CTA Heart: RRR Abdomen: soft Extremities: other: (No edema) - Telemetry Telemetry Rhythm: SR 60s - Labs Result Diagrams: 11/26/18 05:39 11/26/18 05:39 Troponin/CKMB Troponin I Less than 0.010 ng/mL (< 0.028) 11/23/18 23:18 - Assessment/Plan 1. Abnormal Stress test with decreased EF 39% with global hypokenesis (50% with Stress test in 10/2017) - Plan for [facility] this afternoon. 2. HTN - stable 3. Hyperlipidemia - On Statin 4. Insulin depended DM - managed by PCP 5. CKD stage 3 - stable 6. Dizziness - stable; orthostatic BP is stable 7. current smoker - smoking cessation education given to the pt. JOAQUIN reviewed * The procedure and the risk of the LCH was explained to the pt, including, but not limited to: Hemorrhage, Infection, perforation of cath, forming of thrombembolism, CVA, DE, allergic reaction to Iodine, renal insufficiency, and . She voiced understanding and agreed to proceed the procedure today. Clear liquid diet this AM and then NPO after 0830. Pt. seen and eval. by me. I agree with the A/P by the BRICK SHADER. Plan for cath in AM as not enough staff to cath pt. today after my clinic ends at 2PM.. Chest clear. RRR. Review of Systems - Review of Systems Constitutional: reports: no symptoms reported EENTM: reports: no symptoms reported Respiratory: reports: no symptoms reported Cardiac (ROS): reports: no symptoms reported ABD/GI: reports: no symptoms reported : reports: no symptoms reported Musculoskeletal: reports: back pain
[2018-11-26] MEDS: Aspirin 81 mg Enteric Coated Tablet PO SCH (09:21)
[2018-11-26] MEDS: Lisinopril/Hydrochlorothiazide 20/25 mg Tablet PO SCH ×2 (09:22→21:18)
[2018-11-26] MEDS: Gabapentin 300 MG CAP PO SCH ×3 (09:22→21:16)
[2018-11-26] MEDS: Insulin Glargine 23 UNITS in Pre-Filled Syringe SC SCH ×3 (09:22→21:17)
[2018-11-26] MEDS: Enoxaparin Sodium 40 MG/0.4 ML SYRINGE SC SCH (09:22)
[2018-11-26] MEDS: Cyclobenzaprine 10 MG TAB PO SCH ×3 (09:22→21:19)
[2018-11-26] MEDS: Spironolactone 25 MG TAB PO SCH (09:23)
--- NOTE | 2018-11-26 18:06 | PDOC.PN ---
- Subjective Encounter Start Date: 11/26/18 Encounter Start Time: 18:04 Patient lying in bed, underwent echo this morning. Reports lightheadedness, blurred vision improved along with her exertional sob. She denies any chest pain , palpitations, shortness of breath at this time. Cardiology following and plan heart cath tomorrow. - Objective MAR Reviewed: Yes Vital Signs & Weight: Vital Signs (12 hours) Temp Pulse Resp BP Pulse Ox 11/26/18 15:43 97.8 F 83 18 121/80 97 11/26/18 11:31 98.5 F 65 18 139/86 99 11/26/18 09:22 65 11/26/18 07:23 98.5 F 65 18 135/81 99 Weight Weight 264 lb 9.6 oz I&O: 11/25/18 11/26/18 11/27/18 06:59 06:59 06:59 Intake Total 3429 2675 Output Total 1600 3100 Balance 1829 -425 Result Diagrams: 11/26/18 05:39 11/26/18 05:39 Additional Labs: Accuchecks 11/26/18 11/26/18 11/26/18 17:09 10:26 06:04 POC Glucose 278 H 249 H 226 H 11/25/18 20:23 POC Glucose 236 H Radiology Reviewed by me: Yes Phys Exam - Physical Examination Constitutional: NAD HEENT: PERRLA, moist MMs Neck: no JVD, supple Respiratory: no wheezing, no rales, no rhonchi Cardiovascular: RRR, no significant murmur, no rub Gastrointestinal: soft, non-tender, positive bowel sounds Musculoskeletal: no edema, pulses present Neurological: non-focal, normal sensation, moves all 4 limbs Lymphatic: no nodes Psychiatric: normal affect, A&O x 3 Skin: no rash, cap refill <2 seconds Dx/Plan (1) Chest pain Code(s): R07.9 - CHEST PAIN, UNSPECIFIED Status: Acute (2) Hyperglycemia due to type 2 diabetes mellitus Code(s): E11.65 - TYPE 2 DIABETES MELLITUS WITH HYPERGLYCEMIA Status: Acute Qualifiers: Comment: Patient's blood sugars in the 300s on increased dose of Lantus. Will d/ c home on increased long acting insulin dose to follow up with PCP. (3) Diabetes mellitus Code(s): E11.9 - TYPE 2 DIABETES MELLITUS WITHOUT COMPLICATIONS Status: Chronic Qualifiers: Diabetes mellitus type: type 2 Diabetes mellitus hotel valet attendant insulin use: with senior living use Diabetes mellitus complication status: with neurologic complications Diabetes mellitus complication detail: with polyneuropathy Qualified Code(s): E11.42 - Type 2 diabetes mellitus with diabetic polyneuropathy; Z79.4 - nursing home (current) use of insulin (4) HTN (hypertension) Code(s): I10 - ESSENTIAL (PRIMARY) HYPERTENSION Status: Chronic Qualifiers: Hypertension type: essential hypertension Qualified Code(s): I10 - Essential (primary) hypertension - Plan cont current plan of care, DVT proph w/lovenox * Continue medical management * Await echo * Cardiology following, plan for heart cath tomorrow * Further management pending finding on heart cath and recommendations per cardiology
[2018-11-26] MEDS: Atorvastatin Calcium 40 MG TAB PO SCH (21:16)
[2018-11-26] MEDS: Doxepin HCl 25 MG CAP PO SCH (21:16)
[2018-11-27] MEDS: Enoxaparin Sodium 40 MG/0.4 ML SYRINGE SC SCH (07:32)
[2018-11-27] MEDS: Cyclobenzaprine 10 MG TAB PO SCH ×2 (07:32→14:04)
[2018-11-27] MEDS: Aspirin 81 mg Enteric Coated Tablet PO SCH ×2 (07:32→10:15)
[2018-11-27] MEDS: Gabapentin 300 MG CAP PO SCH ×2 (07:32→14:04)
[2018-11-27] MEDS: Insulin Glargine 23 UNITS in Pre-Filled Syringe SC SCH ×2 (07:32→10:15)
[2018-11-27] MEDS: Lisinopril/Hydrochlorothiazide 20/25 mg Tablet PO SCH (07:32)
[2018-11-27] MEDS: Spironolactone 25 MG TAB PO SCH (07:33)
[2018-11-27] MEDS ORDERED: Nitroglycerin 100MG/250ML BOT 250 ML ONE (07:45)
[2018-11-27] MEDS ORDERED: Heparin 10,000 UNITS/1 ML VIAL ONE (07:45)
[2018-11-27] MEDS ORDERED: Verapamil 5 MG/2 ML VIAL ONE (07:45)
[2018-11-27] MEDS ORDERED: Midazolam HCl 2 mg/2 ml Vial ONE (08:13)
[2018-11-27] MEDS ORDERED: Nitroglycerin 0.4 MG TAB (25 Tab Bottle) SL PRN (09:14)
[2018-11-27] MEDS ORDERED: Acetaminophen/Codeine 30-300mg Tablet PO PRN ×2 (09:14)
[2018-11-27] MEDS ORDERED: Sodium Chloride 0.9% 200 ML IV SCH (09:14)
[2018-11-27] MEDS ORDERED: traMADol HCl 50 MG TAB PO PRN (09:14)
[2018-11-27] MEDS ORDERED: Iopamidol 370 76% 50 ML VIAL FS ONE (10:02)
[2018-11-27] MEDS ORDERED: Iopamidol 370 76% 100 ML VIAL ONE (10:02)
[2018-11-27] MEDS: HumaLOG 300 UNITS/3 ML VIAL SC PRN ×2 (12:01→16:33)
[2018-11-27 16:13] VITALS: BP 108/61; TEMP 98.1
== END 2018-11-27 17:04 | disposition home or self-care (01) ==
LOC: ERS 14:37 → 2SW 21:32
PROVIDERS: ADMIT Internal Medicine; ATTEND Internal Medicine
PROC: 4A023N7 Measurement of Cardiac Sampling and Pressure, Left Heart, Percutaneous Approach (ICD-10-PCS; principal; 2018-11-27)
PROC: B2111ZZ Fluoroscopy of Multiple Coronary Arteries using Low Osmolar Contrast (ICD-10-PCS; 2018-11-27)
DX: I25.119 Atherosclerotic heart disease of native coronary artery with unspecified angina pectoris (principal); R55 Syncope and collapse; E11.65 Type 2 diabetes mellitus with hyperglycemia; I12.9 Hypertensive chronic kidney disease with stage 1 through stage 4 chronic kidney disease, or unspecified chronic kidney disease; E11.22 Type 2 diabetes mellitus with diabetic chronic kidney disease; N18.3 Chronic kidney disease, stage 3 (moderate); E11.42 Type 2 diabetes mellitus with diabetic polyneuropathy; G89.29 Other chronic pain; M54.9 Dorsalgia, unspecified; E78.5 Hyperlipidemia, unspecified; F31.9 Bipolar disorder, unspecified; F41.9 Anxiety disorder, unspecified; F17.210 Nicotine dependence, cigarettes, uncomplicated; E78.00 Pure hypercholesterolemia, unspecified; E66.01 Morbid (severe) obesity due to excess calories; Z68.38 Body mass index [BMI] 38.0-38.9, adult; Z79.4 Long term (current) use of insulin; Z79.82 Long term (current) use of aspirin; Z79.899 Other long term (current) drug therapy; Z88.2 Allergy status to sulfonamides
CPT/HCPCS: 36415; 36416; 70450; 71045; 78452; 80048; 80053; 83690; 84484; 85025; 85379; 87081; 87430; 93005; 93017; 93306; 93458; 93880; 96360; 96361; 96372; 99152; 99153; A9500; C1769; G0378; J0153; J1644; J1650; J1825; J2250; Q9967

== ENCOUNTER 2018-12-10 16:45 | Emergency (ER) | payer OTHER, SELFPAY ==
[2018-12-10 17:37] LABS: Bilirubin Negative (Negative); Blood, Urine Negative (Negative); Clarity CLEAR (Clear); Glucose, Urine (Dipstick) >=1000 mg/dL (Negative); Leukocyte Negative (Negative); Nitrite Negative (Negative); Protein, Urine (Dipstick) Negative (Neg-Trace); Specific Gravity, Urine 1.034 (1.002-1.036); Urobilinogen 0.2 mg/dL (0.2-1.0); pH, Urine 5.5 (5.0-9.0)
[2018-12-10 17:42] LABS: #Eosinphils 0.2 thou/uL (0.0-0.7); #Lymphocytes 3.9 thou/uL (1.20-3.40); #Monocytes 0.6 thou/uL (0.11-0.59); #Neutrophils 4.3 thou/uL (1.40-6.50); %Basophils 0.5 % (0.0-1.0); %Eosinophils 2.2 % (0.0-10.0); %Monocytes 6.1 % (0.0-10.0); %Neutrophils 48.2 % (42.0-75.0); Hemoglobin 14.3 g/dL (12.0-16.0); Mean Corpuscular HGB CONC 32.2 g/dL (32.0-36.0); Mean Corpuscular Hemoglobin 29.5 pg (27.0-31.0); Mean Corpuscular Volume 91.8 fL (78.0-98.0); Mean Platelet Volume 9.1 fL (7.4-10.4); Platelet Count 258 thou/uL (130-400); RBC Distribution Width 12.1 % (11.5-14.5); Red Blood Cell (RBC) Count 4.85 mill/uL (4.20-5.40)
[2018-12-10 18:02] LABS: ALT (SGPT) 14 U/L (8-55); AST (SGOT) 9 U/L (5-34); Albumin 4.1 g/dL (3.5-5.0); Alkaline Phosphatase 135 U/L (40-150); Anion Gap 14 mmol/L (10-20); BUN (Urea Nitrogen) 14 mg/dL (7.0-18.7); Bilirubin, Total 0.5 mg/dL (0.2-1.2); Calc. Creatinine Clearance 0 mL/min (70-130); Calcium 10.1 mg/dL (7.8-10.44); Carbon Dioxide 25 mmol/L (22-29); Chloride 90 mmol/L (98-107); Estimated GFR-MDRD 57; Globulin 3.2 g/dL (2.4-3.5); Potassium 3.8 mmol/L (3.5-5.1); Protein, Total 7.3 g/dL (6.0-8.3); Sodium 125 mmol/L (136-145)
[2018-12-10 18:09] LABS: Glucose 659 mg/dL (70-105)
[2018-12-10] MEDS ORDERED: methylPREDNISolone Sod Succ/PF 125 MG/2 ML VIAL ONE (20:24)
[2018-12-10 20:58] LABS: BHCG - Serum Negative (NEGATIVE); Pregs Control Background? CLEAR/WHITE (CLR/WHITE); Pregs Control Bar Appear? YES (CONTROL BAR)
--- NOTE | 2018-12-10 21:04 | RAD ---
PORTABLE CHEST: HISTORY: Cough. COMPARISON: 11/23/2018 FINDINGS: Heart size and mediastinum are within normal limits. Lungs are clear of infiltrates. No significant bony findings. IMPRESSION: No active intrathoracic disease. POS: [facility]
[2018-12-10] MEDS ORDERED: Insulin Regular 300 UNITS/3 ML VIAL ONE (22:35)
== END 2018-12-10 22:47 | disposition home or self-care (01) ==
LOC: ERS 16:45
DX: J20.9 Acute bronchitis, unspecified (principal); E78.5 Hyperlipidemia, unspecified; E11.9 Type 2 diabetes mellitus without complications; I11.0 Hypertensive heart disease with heart failure; I50.9 Heart failure, unspecified; F31.9 Bipolar disorder, unspecified; F41.9 Anxiety disorder, unspecified; F20.9 Schizophrenia, unspecified; Z87.891 Personal history of nicotine dependence; Z79.899 Other long term (current) drug therapy; Z79.4 Long term (current) use of insulin
CPT/HCPCS: 36415; 36416; 71045; 80053; 81003; 84703; 85025; 87081; 87430; 87804; 96361; 96374; J1815; J2930

== ENCOUNTER 2018-12-12 17:33 | Observation (INO) | payer SELFPAY ==
[2018-12-12 18:04] LABS: #Basophils 0.1 thou/uL (0.0-0.2); #Eosinphils 0.1 thou/uL (0.0-0.7); #Lymphocytes 4.4 thou/uL (1.20-3.40); #Monocytes 0.5 thou/uL (0.11-0.59); #Neutrophils 5.8 thou/uL (1.40-6.50); %Basophils 0.8 % (0.0-1.0); %Eosinophils 0.6 % (0.0-10.0); %Lymphocytes 40.7 % (21.0-51.0); %Monocytes 4.2 % (0.0-10.0); %Neutrophils 53.7 % (42.0-75.0); Hemoglobin 15.2 g/dL (12.0-16.0); Mean Corpuscular HGB CONC 31.9 g/dL (32.0-36.0); Mean Corpuscular Hemoglobin 29.1 pg (27.0-31.0); Mean Corpuscular Volume 91.1 fL (78.0-98.0); Mean Platelet Volume 9.5 fL (7.4-10.4); Platelet Count 215 thou/uL (130-400); RBC Distribution Width 12.3 % (11.5-14.5); Red Blood Cell (RBC) Count 5.23 mill/uL (4.20-5.40); White Blood Cell (WBC) Count 10.7 thou/uL (4.8-10.8)
[2018-12-12 18:36] LABS: ALT (SGPT) 17 U/L (8-55); AST (SGOT) 16 U/L (5-34); Albumin 3.8 g/dL (3.5-5.0); Alkaline Phosphatase 113 U/L (40-150); Anion Gap 14 mmol/L (10-20); BUN (Urea Nitrogen) 13 mg/dL (7.0-18.7); Bilirubin, Total 0.5 mg/dL (0.2-1.2); Calc. Creatinine Clearance 0 mL/min (70-130); Calcium 9.4 mg/dL (7.8-10.44); Carbon Dioxide 25 mmol/L (22-29); Chloride 90 mmol/L (98-107); Estimated GFR-MDRD 53; Globulin 3.1 g/dL (2.4-3.5); Potassium 4.1 mmol/L (3.5-5.1); Protein, Total 6.9 g/dL (6.0-8.3); Sodium 125 mmol/L (136-145)
[2018-12-12 18:40] LABS: Glucose 666 mg/dL (70-105)
--- NOTE | 2018-12-12 18:51 | RAD ---
PORTABLE CHEST: 12/12/18 HISTORY: Chest pain, left arm numbness. COMPARISON: 12/10/18 study. Heart size and mediastinum are within normal limits. The lungs appear clear of any focal infiltrative process. No significant bony findings. IMPRESSION: No active intrathoracic disease. POS: [facility]
[2018-12-12] MEDS ORDERED: Insulin Regular 300 UNITS/3 ML VIAL ONE (18:52)
[2018-12-12 19:04] LABS: Lipase 28 U/L (8-78); Magnesium 2.1 mg/dL (1.6-2.6); Phosphorus 3.2 mg/dL (2.3-4.7)
[2018-12-12 19:15] LABS: Bilirubin Negative (Negative); Blood, Urine Negative (Negative); Clarity CLEAR (Clear); Glucose, Urine (Dipstick) >=1000 mg/dL (Negative); Leukocyte Small (Negative); Nitrite Negative (Negative); Protein, Urine (Dipstick) Negative (Neg-Trace); Specific Gravity, Urine 1.033 (1.002-1.036); Urobilinogen 0.2 mg/dL (0.2-1.0)
[2018-12-12 19:19] LABS: Bacteria/HPF None Seen HPF (None Seen); Hyaline Casts/LPF 0-3 HYALINE CAST LPF (0-3 Hyaline); Pathc Cast-AUWi Flag 0.14 (0-2.49); RBC/HPF 0-3 HPF (0-3); Squamous Epithelial 0-3 HPF (0-3)
[2018-12-12 19:25] LABS: Base Excess-Venous 1.5 mmol/L (-2.0 to 3.0); Bicarbonate (HCO3v) 26.5 mmol/L (22.0-28.0); CO2 Tension (PvCO2) 42.2 mmHg (40.0-50.0); Calcium, Ionized 1.06 mmol/L (See Comments:); Chloride 94 mmol/L (98-107); Hemoglobin - Calc 16.1 g/dL (12.0-16.0); O2 Tension (PvO2) 33.7 mmHg (35.0-45.0); Potassium 3.6 mmol/L (3.5-5.1); Sodium 128 mmol/L (138-145); T. Carbon Dioxide 27.8 mmol/L (22.0-28.0); pH (Venous) 7.406 (7.320-7.430); vO2 Saturation-calc 65.1 % (60.0-85.0)
[2018-12-12] MEDS ORDERED: Metoclopramide HCl 10 MG/2 ML VIAL ONE (19:36)
[2018-12-12 21:34] LABS: Troponin I 0.013 ng/mL (< 0.028)
[2018-12-12] MEDS ORDERED: Dextrose 50% Abboject 50 ML SYRINGE SLOW IVP PRN (23:10)
[2018-12-12] MEDS ORDERED: Dextrose 5% in Water 1,000 ML IV PRN (23:10)
[2018-12-12] MEDS ORDERED: Ondansetron ODT 4 MG TAB PO PRN (23:10)
[2018-12-12] MEDS: HumaLOG 300 UNITS/3 ML VIAL SC PRN (23:36)
[2018-12-12] MEDS: Acetaminophen 325 MG TAB PO PRN (23:37)
[2018-12-13 00:30] LABS: Troponin I Less than 0.010 ng/mL (< 0.028)
[2018-12-13 01:26] VITALS: BMI 39.1
[2018-12-13] MEDS ORDERED: cefTRIAXone\\ROCEPHIN 1 GM in Sodium Chloride 0.9% 100 ML IVPB SCH (03:00)
--- NOTE | 2018-12-13 03:55 | HP ---
PRIMARY CARE DOCTOR: The patient goes to [facility]. CODE STATUS: Full code. TIME OF EVALUATION: 8:15 p.m. CHIEF COMPLAINT: Hyperglycemia. HISTORY OF PRESENT ILLNESS: This is a 43-year-old female patient with past medical history of diabetes type 2. The patient came to the hospital after having very high blood sugars in the range of 500 to 600. She reported that she had been on sliding scale, but she was taking with some change in medications in the past few days. The patient also reported having some associated nausea and vomiting and left shoulder pain, has been on and off with no clear triggers, no alleviating factors. Being moderate. No specific radiation. REVIEW OF SYSTEMS: CONSTITUTIONAL: No fever, chills, or generalized weakness. RESPIRATORY: The patient has no cough, sputum production, or shortness of breath. CARDIOVASCULAR: No chest pain or palpitation. GASTROINTESTINAL: Positive nausea. No vomiting, diarrhea, or abdominal pain. ENVIRONMENTAL AUDITOR: No dizziness, headache, or feeling lightheaded. GENITOURINARY: No burning on urination. EXTREMITIES: No leg swelling. All other systems were reviewed and negative except for the findings mentioned above. PAST MEDICAL HISTORY: Positive for diabetes, hyperlipidemia, hypertension, neuropathy, pancreatitis. PAST SURGICAL HISTORY: Tubal ligation, cataract surgery x2. PSYCH HISTORY: The patient had a history of anxiety, bipolar disorder, schizophrenia. No previous inpatient psych admissions. SOCIAL HISTORY: No alcohol. No drugs. No smoking history. FAMILY HISTORY: Reviewed and non contributory to current presentation. KNOWN ALLERGIES: Bactrim. REPORTED MEDICATION: Not updated. PHYSICAL EXAMINATION: VITAL SIGNS: Blood pressure 106/76, heart rate 110, respiratory rate was 17, temperature 97.9. GENERAL APPEARANCE: The patient is obese, alert, oriented, in no acute distress. HEENT: Eyes, normal conjunctivae. Moist oral mucosa. Anicteric. No JVD. RESPIRATORY: Bilateral air entry. No rales. No wheezes. Symmetric expansion. CARDIOVASCULAR: Normal rate, regular rhythm. No murmurs. No gallops. No edema. ABDOMEN: Soft. Normal bowel sounds. MUSCULOSKELETAL: Baseline range of motion and strength. No tenderness. SKIN: Warm, intact. No pallor. No rash. No redness. Peripheral pulses are present. Capillary refill seems to be intact. NEURO: No evidence of any new focal weakness. Baseline speech. Cranial nerves seems to be intact. PSYCH: The patient is in good mood. No anxiety. Optimal judgment. DIAGNOSTIC STUDIES: EKG, the patient has sinus tachycardia at the rate of 106, WI 126, QRS 70, QT corrected 448. Chest x-ray shows no active intrathoracic disease. LABORATORY DATA: Labs were reviewed. The patient has white count of 10.7, hemoglobin 15.2, MCV 91.1, platelet count 215. Blood gas; pH 7.4, pCO2 42, oxygen 37, this was a VBG. Chemistry: Sodium 135, potassium 4.1, chloride 90, carbon dioxide 25, anion gap 14, BUN 13, creatinine 1.33. In previous admissions, the creatinine was all the same. GFR was 53. Glucose initially 666, came down with insulin to 461 and then 410. LFTs were negative. Urine was positive, beta hydroxybutyrate 0.13. ASSESSMENT AND PLAN: The patient will be placed in the hospital with following medical problems: 1. Uncontrolled diabetes. The patient has had some change in medication recently. The patient's medications to be adjusted depending on the patient's need for insulin. 2. Urinary tract infection. The patient has elevated wbc's in the urine with leukocyte esterase, we will cover with Rocephin. Given presentation with very uncontrolled diabetes, infection could be triggering all this in this patient. 3. Hypertonic hyponatremia, likely secondary to very elevated blood sugar. We will monitor. We will treat accordingly. 4. Acute kidney injury. Likely secondary to possible underlying sepsis and possible some dehydration. We will hydrate. We will monitor. We will treat accordingly. 5. Hyperlipidemia. Low-cholesterol diet is advised. Reconcile home medications. 6. DVT prophylaxis. Adjust treatment as needed. 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
[2018-12-13] MEDS: Acetaminophen 325 MG TAB PO PRN ×2 (04:07→12:45)
[2018-12-13 06:24] LABS: #Basophils 0.1 thou/uL (0.0-0.2); #Eosinphils 0.1 thou/uL (0.0-0.7); #Lymphocytes 3.7 thou/uL (1.20-3.40); #Monocytes 0.5 thou/uL (0.11-0.59); #Neutrophils 3.6 thou/uL (1.40-6.50); %Basophils 0.7 % (0.0-1.0); %Eosinophils 1.5 % (0.0-10.0); %Lymphocytes 46.7 % (21.0-51.0); %Neutrophils 45.2 % (42.0-75.0); Hemoglobin 13.2 g/dL (12.0-16.0); Mean Corpuscular HGB CONC 32.2 g/dL (32.0-36.0); Mean Corpuscular Volume 90.2 fL (78.0-98.0); Mean Platelet Volume 9.1 fL (7.4-10.4); Platelet Count 194 thou/uL (130-400); Red Blood Cell (RBC) Count 4.55 mill/uL (4.20-5.40); White Blood Cell (WBC) Count 7.9 thou/uL (4.8-10.8)
[2018-12-13] MEDS: HumaLOG 300 UNITS/3 ML VIAL SC PRN ×2 (06:28→11:47)
[2018-12-13 06:43] LABS: Anion Gap 13 mmol/L (10-20); BUN (Urea Nitrogen) 11 mg/dL (7.0-18.7); Calc. Creatinine Clearance 164 mL/min (70-130); Calcium 8.6 mg/dL (7.8-10.44); Carbon Dioxide 23 mmol/L (22-29); Chloride 101 mmol/L (98-107); Estimated GFR-MDRD Greater than 90; Glucose 376 mg/dL (70-105); Potassium 3.7 mmol/L (3.5-5.1); Sodium 133 mmol/L (136-145)
[2018-12-13] MEDS ORDERED: Cyclobenzaprine 10 MG TAB PO PRN (07:17)
[2018-12-13] MEDS ORDERED: Metoclopramide HCl 10 MG TAB PO PRN (07:17)
[2018-12-13] MEDS ORDERED: Non-Formulary Item 1 EACH (Alprazolam [Xanax] 2 MG) PO PRN (07:17)
[2018-12-13] MEDS ORDERED: ALPRAZolam 1 MG TAB PO PRN (07:28)
[2018-12-13] MEDS: Gabapentin 300 MG CAP PO SCH ×2 (08:34→15:30)
[2018-12-13] MEDS ORDERED: Aspirin 81 mg Enteric Coated Tablet PO SCH (09:00)
[2018-12-13] MEDS ORDERED: Insulin Glargine 23 UNITS in Pre-Filled Syringe 1 EACH SC SCH (09:00)
[2018-12-13] MEDS ORDERED: Lisinopril/Hydrochlorothiazide 20/25 mg Tablet PO SCH (09:00)
[2018-12-13] MEDS ORDERED: Spironolactone 25 MG TAB PO SCH (09:00)
[2018-12-13] MEDS ORDERED: INSULIN DETEMIR 23 UNIT SQ SCH (09:00)
[2018-12-13] MEDS ORDERED: Gabapentin 100 MG CAP PO SCH (09:00)
[2018-12-13] MEDS ORDERED: Enoxaparin Sodium 40 MG/0.4 ML SYRINGE SC SCH (09:00)
[2018-12-13 09:58] LABS: Hemoglobin A1c 14.6 % (4.0-6.0)
--- NOTE | 2018-12-13 10:01 | PDOC.PN ---
- Subjective Encounter Start Date: 12/13/18 Encounter Start Time: 09:59 Subjective: Patient reports feeling fatigued. Just showered and felt overall weak. -: No n/v. Reports having mild chest tightness and left shoulder pain. -: This has been intermittent for a few days. Reports occasional cough. Some sob when having coughing fits. No hemoptysis. Denies any fevers. Mild abdominal discomfort on occasion. Reports neuropathy in bilateral legs and reports numbness in left arm which is often intermittent. At times has numbness in right arm. She attributes this to her diabetes. Reports tolerating oral intake and maintaining adequate oral hydration. No lower leg swelling or calf pain. States due to cost of her medications, she had been switched to Levemir 5 months ago. On her recent admission it was increased to 23 units BID. She has also been on Metformin 1 g BID for the last 3 months. Her glucose has been labile since these changes. On admission her glucose was in the 600s. This morning it has settled to 300s. On recent admission in 10/2018 she underwent multiple investigations including an Echo showing EF mildly reduced at 50% with trace MR/TR. Cath 10/2018 showing normal coronary arteries done by Dr. Spivey. Nahid US that was unremarkable. Patient has had no further follow-up as outpatient. - Objective Resuscitation Status - Order Detail: 12/12/18 23:10 Resuscitation Status Routine Resuscitation Status: FULL: Full Resuscitation Vital Signs & Weight: Vital Signs (12 hours) Temp Pulse Resp BP Pulse Ox 12/13/18 08:30 98.2 F 93 18 111/66 96 12/13/18 03:15 98.3 F 101 H 18 111/65 97 12/12/18 22:44 98.4 F 101 H 17 111/66 96 Weight Weight 256 lb 14.4 oz I&O: 12/12/18 12/13/18 12/14/18 06:59 06:59 06:59 Intake Total 400 Output Total 600 Balance -200 Result Diagrams: 12/13/18 05:31 12/13/18 05:31 Additional Labs: Accuchecks 12/13/18 12/12/18 12/12/18 06:23 22:58 21:31 POC Glucose 332 H 410 H 390 H 12/12/18 12/12/18 19:45 17:39 POC Glucose 461 H Greater than 550 H* Phys Exam - Physical Examination Constitutional: NAD HEENT: PERRLA, moist MMs, sclera anicteric, oral pharynx no lesions Neck: no nodes, no JVD, supple, full ROM Respiratory: no wheezing, no rales, no rhonchi, clear to auscultation bilateral Cardiovascular: RRR, no significant murmur Gastrointestinal: soft, non-tender, no distention, positive bowel sounds Obese, No guarding/rigidity Musculoskeletal: no edema, pulses present Neurological: moves all 4 limbs reduced sensation in lower legs bilaterally power 5/5 in all limbs Psychiatric: normal affect, A&O x 3 Skin: no rash, normal turgor Dx/Plan (1) Chest pain Code(s): R07.9 - CHEST PAIN, UNSPECIFIED Status: Acute (2) Hyperglycemia due to type 2 diabetes mellitus Code(s): E11.65 - TYPE 2 DIABETES MELLITUS WITH HYPERGLYCEMIA Status: Chronic Qualifiers: Comment: Patient's blood sugars in the 300s on increased dose of Lantus. Will d/ c home on increased long acting insulin dose to follow up with PCP. (3) Hyponatremia Code(s): E87.1 - HYPO-OSMOLALITY AND HYPONATREMIA Status: Chronic (4) Diabetic neuropathy Code(s): E11.40 - TYPE 2 DIABETES MELLITUS WITH DIABETIC NEUROPATHY, UNSP Status: Chronic Qualifiers: Diabetes mellitus type: type 2 Diabetes mellitus complication detail: diabetic polyneuropathy Qualified Code(s): E11.42 - Type 2 diabetes mellitus with diabetic polyneuropathy (5) Tachycardia Code(s): R00.0 - TACHYCARDIA, UNSPECIFIED Status: Resolved - Plan cont current plan of care, out of bed/ambulate, DVT proph w/lovenox Cardiology consult: atypical chest pain. Recent investigations. Tropx3 neg -: Monitor glucose, resume home medications. HgbA1C requested. -: Abx given yesterday for UTI. No symptoms. UCx requested. -: HR improved. Likely due to TANIA, renal function improved. Continue PO fluids -: TSH and Mg+ requested. Continue to monitor. Will discuss with Dr. Sultana for further recommendations. Review of Systems - Review of Systems Constitutional: weakness. negative: fever, chills, sweats, malaise Eyes: negative: Pain, Vision Change, Conjunctivae Inflammation, Eyelid Inflammation, Redness ENT: negative: Ear Pain, Ear Discharge, Nose Pain, Nose Discharge, Nose Congestion, Mouth Pain, Mouth Swelling, Throat Pain, Throat Swelling Respiratory: Cough, Shortness of Breath (during coughing fits). negative: Dry, Hemoptysis, SOB with Excertion, Pleuritic Pain, Sputum, Wheezing Cardiovascular: chest pain. negative: palpitations, orthopnea, paroxysmal nocturnal dyspnea, edema, light headedness Gastrointestinal: Nausea (this morning, settled with crackers). negative: Vomiting, Abdominal Pain, Diarrhea, Constipation, Melena, Hematochezia Genitourinary: negative: Dysuria, Frequency, Incontinence, Hematuria, Retention Musculoskeletal: Shoulder Pain (left shoulder/arm), Arm Pain. negative: Neck Pain, Back Pain, Hand Pain, Leg Pain, Foot Pain, Other Neurological: Weakness, Numbness (bilateral lower extremities, chronic). negative: Incoordination, Change in Speech, Confusion, Seizures - Medications/Allergies Allergies/Adverse Reactions: Allergies Allergy/AdvReac Type Severity Reaction Status Date / Time sulfamethoxazole Allergy Hives Verified 11/23/18 21:51 [From Bactrim] trimethoprim [From Bactrim] Allergy Hives Verified 11/23/18 21:51 Medications: Current Medications Acetaminophen (Tylenol) 650 mg PO Q4H PRN PRN Reason: Headache/Fever/Mild Pain (1-3) Last Admin: 12/13/18 04:07 Dose: 650 mg Alprazolam (Xanax) 2 mg PO HSPRN PRN PRN Reason: Anxiety Aspirin (Ecotrin) 81 mg PO DAILY [facility] Last Admin: 12/13/18 08:34 Dose: 81 mg Atorvastatin Calcium (Lipitor) 40 mg PO HS [facility] Cyclobenzaprine HCl (Flexeril) 10 mg PO TID PRN PRN Reason: muscle spasms Dextrose/Water (Dextrose 50%) 25 gm SLOW IVP PRN PRN PRN Reason: Hypoglycemia Doxepin HCl (Sinequan) 100 mg PO HS [facility] Enoxaparin Sodium (Lovenox) 40 mg SC 0900 [facility] Last Admin: 12/13/18 08:35 Dose: 40 mg Gabapentin (Neurontin) 300 mg PO TID [facility] Last Admin: 12/13/18 08:34 Dose: 300 mg Glucagon (Glucagon) 1 mg IM PRN PRN PRN Reason: Hypoglycemia Lisinopril/HCTZ (Prinizide 20-25) 1 tab PO BID [facility] Last Admin: 12/13/18 08:34 Dose: 1 tab Dextrose/Water (D5w) 1,000 mls @ 0 mls/hr IV .Q0M PRN PRN Reason: Hypoglycemia Ceftriaxone Sodium 1 gm/ (Sodium Chloride) 100 mls @ 200 mls/hr IVPB Q24HR [facility] Last Admin: 12/13/18 04:06 Dose: 100 mls Insulin Glargine 23 units/ (Miscellaneous Medication) 0.23 mls @ 0 mls/hr SC BID [facility] Last Admin: 12/13/18 08:45 Dose: 0.23 mls Insulin Human Lispro (Humalog) 0 units SC .MILD SLIDING SCALE PRN PRN Reason: Mild Correctional Scale Last Admin: 12/13/18 06:28 Dose: 5 unit Metoclopramide HCl (Reglan) 10 mg PO ACHS PRN PRN Reason: Migraine Headache Metoprolol Succinate (Toprol Xl) 100 mg PO DAILY [facility] Last Admin: 12/13/18 08:34 Dose: 100 mg Ondansetron HCl (Zofran Odt) 4 mg PO Q6H PRN PRN Reason: Nausea/Vomiting Spironolactone (Aldactone) 25 mg PO DAILY [facility] Last Admin: 12/13/18 08:35 Dose: 25 mg
--- NOTE | 2018-12-13 14:33 | PDOC.EVN ---
Event Note - Event Note Event Note: Pt discussed w JOLYNN Ms rodriguez. seen and examined at bedside care discussed will add ISS for DC as pt was on it at home but did not know how to use it. will provide dducation. Dietitian also discussed care w pt.She is encouraged to keep BS diary. OK to DC if sugar <300
[2018-12-13 16:01] VITALS: BP 96/54; TEMP 98.5
[2018-12-13] MEDS ORDERED: metFORMIN 500 MG TAB PO SCH (17:00)
--- NOTE | 2018-12-13 17:49 | DIS ---
DATE OF ADMISSION: 12/12/2018 DATE OF DISCHARGE: 12/13/2018 DISCHARGE DIAGNOSES: 1. Hyperglycemia due to uncontrolled diabetes mellitus. 2. Chronic hyponatremia. 3. Acute kidney injury, resolved. 4. Hyperlipidemia. CONSULTING PHYSICIANS: None. HOSPITAL COURSE: Ms. Olivares was admitted to the hospital due to hyperglycemia with uncontrolled blood glucose, which she states dates back to the last 3 to 5 months. She recently underwent a change in her medications due to cost. She has been on Levemir, which on her most recent admission was increased to 23 units subcutaneously twice daily. The patient had been discharged during her last admission on an insulin sliding scale; however, she states she was not sure how to take this. In addition, she has been on metformin 1 g by mouth twice daily. The patient had a glucose of 666 on initial presentation, and today it is significantly improved to 326. We checked hemoglobin A1c, which is 14.6, the highest has been in the past. She has felt well since admission and without any complaints. She reports experiencing neuropathy in both lower extremities, which is chronic as well as the upper extremities, more prominent on the left side. This is typically intermittent for her. The patient states when her glucose is uncontrolled, it seems to be more prominent. She was noted to have a mildly raised creatinine of 1.33 on admission, this is improved to 0.82. She has been tolerating oral intake since admission and has maintained adequate hydration. The patient did complain of mild chest pain, described as a tightness. She states it has been intermittent for few days and associated with an occasional cough. The cough has been nonproductive and she denies any hemoptysis. She has occasional coughing fits with no associated shortness of breath. She underwent extensive cardiac investigations on recent admission last month including an echo showing mildly reduced EF of 50% with trace mitral regurgitation and tricuspid regurgitation. A catheterization was also done showing normal coronary arteries. A carotid ultrasound also was unremarkable. Given these extensive investigations done recently and Dr. Sultana has advised against any further cardiac workup. The patient has remained afebrile. Full blood count was normal. Therefore, no concern for underlying bacterial infection. There is no indication for antibiotics. The patient was reassured by Dr. Sultana, who has advised to discharge home with teaching/instructions on how to administer the insulin sliding scale. The dietitian has also had an extensive conversation regarding adhering to a diabetic diet. REVIEW OF SYSTEMS: At present, the patient denies having any complaints of pain. Denies any nausea or vomiting. Has tolerated oral intake today. Denies having any fevers, chills, or sweats. No chest pain, palpitations, or shortness of breath. No headaches or dizziness. No abdominal pain or cramping. No urinary symptoms. All other review of systems are negative. ALLERGIES: SULFAMETHOXAZOLE AND TRIMETHOPRIM. PHYSICAL EXAMINATION: GENERAL: The patient appears well-developed, well-nourished, and was in no acute distress. VITAL SIGNS: Temperature 98.2, pulse 93, respirations 18, O2 saturation 96% on room air, blood pressure 111/66. HEENT: Normocephalic, atraumatic. Pupils are equal, round, reactive to light. Sclerae are without icterus. Oropharynx is clear. NECK: Supple without lymphadenopathy. LUNGS: Clear to auscultation bilaterally without wheezes, rales, or rhonchi. CARDIAC: Regular rate and rhythm without audible murmurs, rubs, or gallops. ABDOMEN: Soft, nontender, nondistended. Normoactive bowel sounds present. EXTREMITIES: No clubbing, cyanosis, or edema. Reduced sensation in bilateral lower extremities. Pulses present. NEUROLOGIC: Alert and oriented x3. SKIN: Without rash or jaundice. LABORATORY DATA: White blood count 7.9, hemoglobin 13.9, hematocrit 41, platelets 194. Sodium 133, potassium 3.7, BUN 11, creatinine 0.82, GFR greater than 90, significantly improved from 53 yesterday, glucose 332, hemoglobin A1c 14.6, calcium 8.6. BNP less than 10. Troponin x3 are negative. IMAGING DATA: Chest x-ray on 12/12/2018, no active intrathoracic disease. Heart size and mediastinum are within normal limits. Lungs clear of any focal infiltrative process. No significant bony findings. DISCHARGE MEDICATIONS: The patient was given a prescription for insulin sliding scale with Humalog, to take as per mild insulin sliding scale recommendations. Instructions to seek medical attention for glucose greater than 400, maximum dose of 8 units subcutaneous daily. The patient otherwise advised to resume home medications. CONDITION: Stable at discharge. ACTIVITY: As tolerated. DIET: Diabetic diet/low-sodium diet. FOLLOWUP: The patient is advised to follow up with her primary care physician within the next week. DISPOSITION: The patient is cleared for discharge to home today on 12/13/2018. The patient's case was discussed with Dr. Sultana, who agrees with plan of care as described above. Job ID: [id number]
[2018-12-13] MEDS ORDERED: Insulin Glargine 20 UNITS in Pre-Filled Syringe 1 EACH SC SCH (21:00)
[2018-12-13] MEDS ORDERED: HumuLIN 70/30 (300 UNITS/3 ML VIAL) SC SCH (21:00)
[2018-12-13] MEDS ORDERED: Atorvastatin Calcium 40 MG TAB PO SCH (21:00)
[2018-12-13] MEDS ORDERED: Non-Formulary Item 1 EACH (Doxepin Hcl [Doxepin Hcl] 100 MG) PO SCH (21:00)
[2018-12-13] MEDS ORDERED: Doxepin HCl 25 MG CAP PO SCH (21:00)
== END 2018-12-13 16:05 | disposition home or self-care (01) ==
LOC: ERS 17:33 → 2SW 22:40
PROVIDERS: ADMIT Hospitalist; ATTEND Hospitalist
DX: E11.65 Type 2 diabetes mellitus with hyperglycemia (principal); E87.1 Hypo-osmolality and hyponatremia; N17.9 Acute kidney failure, unspecified; E78.5 Hyperlipidemia, unspecified; I10 Essential (primary) hypertension; E11.42 Type 2 diabetes mellitus with diabetic polyneuropathy; F41.9 Anxiety disorder, unspecified; F31.9 Bipolar disorder, unspecified; F20.9 Schizophrenia, unspecified; N39.0 Urinary tract infection, site not specified; Z98.51 Tubal ligation status; Z88.2 Allergy status to sulfonamides; Z79.82 Long term (current) use of aspirin; Z79.4 Long term (current) use of insulin; Z79.899 Other long term (current) drug therapy; Z98.890 Other specified postprocedural states
CPT/HCPCS: 36415; 36416; 71045; 80048; 80053; 81003; 81015; 82010; 82330; 82803; 83036; 83690; 83735; 83880; 84100; 84443; 84484; 85025; 87077; 87086; 93005; 96361; 96365; 96366; 96367; G0378; J0696; J1650; J1815; J1825; J2765; J7050

== ENCOUNTER 2019-01-16 22:10 | Emergency (ER) | payer OTHER, SELFPAY ==
--- NOTE | 2019-01-16 22:39 | RAD ---
CHEST ONE VIEW: 01/16/19 HISTORY: Chest pain. COMPARISON: Radiograph 12/12/18. FINDINGS: Lungs are clear. No pneumothorax or effusion. The cardiac silhouette and mediastinal contours are wit hin normal limits. IMPRESSION: No acute intrathoracic abnormality. POS: [facility]
[2019-01-16 22:51] LABS: #Eosinphils 0.2 thou/uL (0.0-0.7); #Lymphocytes 4.7 thou/uL (1.20-3.40); #Monocytes 0.6 thou/uL (0.11-0.59); #Neutrophils 4.1 thou/uL (1.40-6.50); %Basophils 0.3 % (0.0-1.0); %Eosinophils 1.6 % (0.0-10.0); %Lymphocytes 49.3 % (21.0-51.0); %Monocytes 5.8 % (0.0-10.0); %Neutrophils 42.9 % (42.0-75.0); Hemoglobin 13.4 g/dL (12.0-16.0); Mean Corpuscular HGB CONC 32.1 g/dL (32.0-36.0); Mean Corpuscular Volume 90.4 fL (78.0-98.0); Platelet Count 250 thou/uL (130-400); RBC Distribution Width 12.4 % (11.5-14.5); Red Blood Cell (RBC) Count 4.64 mill/uL (4.20-5.40); White Blood Cell (WBC) Count 9.5 thou/uL (4.8-10.8)
[2019-01-16 22:55] LABS: ALT (SGPT) 15 U/L (8-55); AST (SGOT) 10 U/L (5-34); Albumin 3.7 g/dL (3.5-5.0); Alkaline Phosphatase 108 U/L (40-150); Anion Gap 10 mmol/L (10-20); BUN (Urea Nitrogen) 12 mg/dL (7.0-18.7); Bilirubin, Total 0.3 mg/dL (0.2-1.2); CK (CPK) 87 U/L (29-168); Calc. Creatinine Clearance 0 mL/min (70-130); Calcium 9.3 mg/dL (7.8-10.44); Carbon Dioxide 27 mmol/L (22-29); Chloride 100 mmol/L (98-107); Estimated GFR-MDRD 65; Globulin 2.9 g/dL (2.4-3.5); Glucose 450 mg/dL (70-105); Protein, Total 6.6 g/dL (6.0-8.3); Sodium 133 mmol/L (136-145)
[2019-01-17] MEDS ORDERED: Insulin Regular 300 UNITS/3 ML VIAL ONE (00:01)
--- NOTE | 2019-01-19 17:15 | EKG ---
Test Reason : Blood Pressure : / mmHG Vent. Rate : 086 BPM Atrial Rate : 086 BPM P-R Int : 130 ms QRS Dur : 080 ms QT Int : 376 ms P-R-T Axes : 058 027 031 degrees QTc Int : 449 ms Normal sinus rhythm Normal ECG Confirmed by RACQUEL MITCHELL ([id number]), order editor DYANA FREITAS ([id number] on 01/19/2019 5:14:50 PM Referred By: Confirmed By:RACQUEL MITCHELL
== END 2019-01-17 00:59 | disposition home or self-care (01) ==
LOC: ERS 22:10
DX: R07.89 Other chest pain (principal); E11.65 Type 2 diabetes mellitus with hyperglycemia; E78.5 Hyperlipidemia, unspecified; I11.0 Hypertensive heart disease with heart failure; I50.9 Heart failure, unspecified; E11.40 Type 2 diabetes mellitus with diabetic neuropathy, unspecified; G43.909 Migraine, unspecified, not intractable, without status migrainosus; K58.9 Irritable bowel syndrome, unspecified; F31.9 Bipolar disorder, unspecified; F41.9 Anxiety disorder, unspecified; F20.9 Schizophrenia, unspecified; Z79.4 Long term (current) use of insulin
CPT/HCPCS: 36415; 36416; 71045; 80053; 82550; 84484; 85025; 93005; J1815

== ENCOUNTER 2019-02-19 17:47 | Emergency (ER) | payer SELFPAY ==
[2019-02-19] MEDS ORDERED: Metoclopramide HCl 10 MG/2 ML VIAL ONE (21:08)
[2019-02-19 21:43] LABS: #Basophils 0.1 thou/uL (0.0-0.2); #Eosinphils 0.1 thou/uL (0.0-0.7); #Lymphocytes 3.6 thou/uL (1.20-3.40); #Monocytes 0.6 thou/uL (0.11-0.59); #Neutrophils 4.6 thou/uL (1.40-6.50); %Basophils 0.6 % (0.0-1.0); %Eosinophils 1.1 % (0.0-10.0); %Lymphocytes 40.1 % (21.0-51.0); %Monocytes 6.3 % (0.0-10.0); %Neutrophils 51.9 % (42.0-75.0); Hemoglobin 13.7 g/dL (12.0-16.0); Mean Corpuscular HGB CONC 32.1 g/dL (32.0-36.0); Mean Corpuscular Hemoglobin 29.4 pg (27.0-31.0); Mean Corpuscular Volume 91.7 fL (78.0-98.0); Platelet Count 278 thou/uL (130-400); Red Blood Cell (RBC) Count 4.65 mill/uL (4.20-5.40); White Blood Cell (WBC) Count 8.9 thou/uL (4.8-10.8)
[2019-02-19 21:59] LABS: Bilirubin Negative (Negative); Blood, Urine Negative (Negative); Clarity CLEAR (Clear); Glucose, Urine (Dipstick) >=1000 mg/dL (Negative); Leukocyte Negative (Negative); Nitrite Negative (Negative); Protein, Urine (Dipstick) Negative (Neg-Trace); Urobilinogen 0.2 mg/dL (0.2-1.0)
[2019-02-19 22:01] LABS: Specific Gravity, Urine 1.043 (1.002-1.036)
[2019-02-19 22:06] LABS: ALT (SGPT) 13 U/L (8-55); AST (SGOT) 10 U/L (5-34); Albumin 3.9 g/dL (3.5-5.0); Alkaline Phosphatase 96 U/L (40-150); Anion Gap 13 mmol/L (10-20); BUN (Urea Nitrogen) 11 mg/dL (7.0-18.7); Bilirubin, Total 0.5 mg/dL (0.2-1.2); Calc. Creatinine Clearance 0 mL/min (70-130); Calcium 9.8 mg/dL (7.8-10.44); Carbon Dioxide 24 mmol/L (22-29); Chloride 98 mmol/L (98-107); Estimated GFR-MDRD 68; Globulin 2.8 g/dL (2.4-3.5); Glucose 532 mg/dL (70-105); Protein, Total 6.7 g/dL (6.0-8.3); Sodium 131 mmol/L (136-145)
== END 2019-02-20 00:35 | disposition home or self-care (01) ==
LOC: ERS 17:47
DX: E11.65 Type 2 diabetes mellitus with hyperglycemia (principal); E78.5 Hyperlipidemia, unspecified; I11.0 Hypertensive heart disease with heart failure; I50.9 Heart failure, unspecified; G43.909 Migraine, unspecified, not intractable, without status migrainosus; F41.9 Anxiety disorder, unspecified; F31.9 Bipolar disorder, unspecified; F20.9 Schizophrenia, unspecified; Z79.4 Long term (current) use of insulin; Z79.899 Other long term (current) drug therapy
CPT/HCPCS: 36416; 80053; 81003; 82010; 85025; 96361; 96365; 96366; J2765

== ENCOUNTER 2019-03-14 07:43 | Emergency (ER) | payer SELFPAY ==
[2019-03-14] MEDS ORDERED: Cyclobenzaprine 10 MG TAB ONE (08:38)
== END 2019-03-14 09:02 | disposition home or self-care (01) ==
LOC: ERS 07:43
DX: M54.12 Radiculopathy, cervical region (principal); E11.40 Type 2 diabetes mellitus with diabetic neuropathy, unspecified; I11.0 Hypertensive heart disease with heart failure; I50.9 Heart failure, unspecified; G43.909 Migraine, unspecified, not intractable, without status migrainosus; F41.9 Anxiety disorder, unspecified; E78.5 Hyperlipidemia, unspecified; Z79.4 Long term (current) use of insulin; Z79.899 Other long term (current) drug therapy
CPT/HCPCS: 99283

== ENCOUNTER 2019-04-11 19:24 | Emergency (ER) | payer SELFPAY ==
[2019-04-11 20:06] LABS: #Eosinphils 0.1 thou/uL (0.0-0.7); #Lymphocytes 3.7 thou/uL (1.20-3.40); #Monocytes 0.5 thou/uL (0.11-0.59); #Neutrophils 4.7 thou/uL (1.40-6.50); %Basophils 0.4 % (0.0-1.0); %Eosinophils 1.1 % (0.0-10.0); %Lymphocytes 40.9 % (21.0-51.0); %Monocytes 5.8 % (0.0-10.0); %Neutrophils 51.7 % (42.0-75.0); Hemoglobin 13.5 g/dL (12.0-16.0); Mean Corpuscular HGB CONC 32.7 g/dL (32.0-36.0); Mean Corpuscular Hemoglobin 29.4 pg (27.0-31.0); Mean Corpuscular Volume 89.8 fL (78.0-98.0); Mean Platelet Volume 8.7 fL (7.4-10.4); Platelet Count 254 thou/uL (130-400); RBC Distribution Width 12.4 % (11.5-14.5); Red Blood Cell (RBC) Count 4.61 mill/uL (4.20-5.40)
--- NOTE | 2019-04-11 20:06 | RAD ---
EXAM: Single view of the chest HISTORY: CHF with left lower extremity swelling for 7 days COMPARISON: 01/16/2019 FINDINGS: Single view of the chest shows a normal sized cardiomediastinal silhouette. There is no noel dence of consolidation, mass, or pleural effusion. The bones are unremarkable. IMPRESSION: No evidence of acute cardiopulmonary disease
[2019-04-11 20:34] LABS: ALT (SGPT) 15 U/L (8-55); AST (SGOT) 9 U/L (5-34); Albumin 3.8 g/dL (3.5-5.0); Alkaline Phosphatase 82 U/L (40-150); Anion Gap 14 mmol/L (10-20); BUN (Urea Nitrogen) 11 mg/dL (7.0-18.7); Bilirubin, Total 0.3 mg/dL (0.2-1.2); Calc. Creatinine Clearance 0 mL/min (70-130); Calcium 9.4 mg/dL (7.8-10.44); Carbon Dioxide 22 mmol/L (22-29); Chloride 101 mmol/L (98-107); Estimated GFR-MDRD 73; Globulin 2.3 g/dL (2.4-3.5); Glucose 413 mg/dL (70-105); Protein, Total 6.1 g/dL (6.0-8.3); Sodium 133 mmol/L (136-145)
--- NOTE | 2019-04-11 21:11 | ULT ---
EXAM: Left lower extremity venous ultrasound HISTORY: Left lower extremity pain and edema for 4 days COMPARISON: None TECHNIQUE: Multiplanar grayscale and color Doppler images were obtained in a left lower extremity layne ous ultrasound. Spectral analysis of the Doppler waveforms were performed. FINDINGS: The common femoral vein, profunda femoral vein, superficial femoral vein, and popliteal vei n are normal in appearance without visible thrombus. These vessels demonstrate normal compression, flow, and augmentation. The posterior tibial vein and greater saphenous vein are patent without evidence of DVT. IMPRESSION: No evidence of DVT.
[2019-04-11] MEDS ORDERED: Insulin Regular 300 UNITS/3 ML VIAL ONE (21:45)
--- NOTE | 2019-04-13 16:56 | EKG ---
Test Reason : Blood Pressure : / mmHG Vent. Rate : 086 BPM Atrial Rate : 086 BPM P-R Int : 118 ms QRS Dur : 072 ms QT Int : 382 ms P-R-T Axes : 057 018 022 degrees QTc Int : 457 ms Normal sinus rhythm Normal ECG Confirmed by PILAR TALLEY, KOFI Guevara ([id number]), senior technical editor JOSEF RUIZ ([id number]) on 04/13/2019 4:56:11 PM Referred By: Confirmed By:KOFI QUEZADA MD
== END 2019-04-11 21:58 | disposition home or self-care (01) ==
LOC: ERS 19:24
DX: R60.0 Localized edema (principal); E11.65 Type 2 diabetes mellitus with hyperglycemia; E78.5 Hyperlipidemia, unspecified; I11.0 Hypertensive heart disease with heart failure; I50.9 Heart failure, unspecified; G43.909 Migraine, unspecified, not intractable, without status migrainosus; E11.40 Type 2 diabetes mellitus with diabetic neuropathy, unspecified; F41.9 Anxiety disorder, unspecified; F31.9 Bipolar disorder, unspecified; F20.9 Schizophrenia, unspecified; Z79.4 Long term (current) use of insulin; Z79.899 Other long term (current) drug therapy
CPT/HCPCS: 36415; 71045; 80053; 83880; 84484; 85025; 93005; J1815

== ENCOUNTER 2019-05-20 18:22 | Emergency (ER) | payer SELFPAY ==
[~2019-05-20 18:22] MED LIST: ISOVUE-370 76%-LOCM 1 ML ONE
[2019-05-20 19:23] LABS: Bilirubin Negative (Negative); Blood, Urine Negative (Negative); Clarity Clear (Clear); Glucose, Urine (Dipstick) Greater than 1000 mg/dL (Negative); Leukocyte Negative Leu/uL (Negative); Nitrite Negative (Negative); Protein, Urine (Dipstick) Negative (Neg-Trace); Urobilinogen Normal mg/dL (Less than 2)
[2019-05-20 19:51] LABS: #Basophils 0.1 thou/uL (0.0-0.2); #Eosinphils 0.1 thou/uL (0.0-0.7); #Lymphocytes 3.8 thou/uL (1.20-3.40); #Monocytes 0.5 thou/uL (0.11-0.59); %Basophils 1.3 % (0.0-1.0); %Lymphocytes 44.5 % (21.0-51.0); %Monocytes 5.5 % (0.0-10.0); %Neutrophils 47.6 % (42.0-75.0); Hemoglobin 14.6 g/dL (12.0-16.0); Mean Corpuscular Hemoglobin 28.5 pg (27.0-31.0); Mean Corpuscular Volume 89.2 fL (78.0-98.0); Mean Platelet Volume 8.7 fL (7.4-10.4); Platelet Count 230 thou/uL (130-400); RBC Distribution Width 12.3 % (11.5-14.5); Red Blood Cell (RBC) Count 5.13 mill/uL (4.20-5.40); White Blood Cell (WBC) Count 8.4 thou/uL (4.8-10.8)
[2019-05-20 20:13] LABS: ALT (SGPT) 9 U/L (8-55); AST (SGOT) 7 U/L (5-34); Albumin 3.6 g/dL (3.5-5.0); Alkaline Phosphatase 79 U/L (40-150); Anion Gap 14 mmol/L (10-20); BUN (Urea Nitrogen) 11 mg/dL (7.0-18.7); Bilirubin, Total 0.3 mg/dL (0.2-1.2); Calc. Creatinine Clearance 0 mL/min (70-130); Calcium 9.9 mg/dL (7.8-10.44); Carbon Dioxide 23 mmol/L (22-29); Chloride 103 mmol/L (98-107); Estimated GFR-MDRD 83; Globulin 2.1 g/dL (2.4-3.5); Glucose 408 mg/dL (70-105); Potassium 4.2 mmol/L (3.5-5.1); Protein, Total 5.7 g/dL (6.0-8.3); Sodium 136 mmol/L (136-145)
[2019-05-20] MEDS ORDERED: Ondansetron PF 4 MG/2 ML Vial ONE (20:13)
[2019-05-20] MEDS ORDERED: Pantoprazole 40 MG VIAL ONE (20:13)
--- NOTE | 2019-05-20 21:19 | CT ---
ABDOMEN AND PELVIS CT SCAN WITH IV CONTRAST: HISTORY: Abdominal pain. Nausea, vomiting, and diarrhea. FINDINGS: Small hiatal hernia. The lung bases appear clear. The liver, a somewhat small, contracted gallbladd er, the pancreas, the spleen, and the adrenal glands are unremarkable. No evidence for renal calculu s or acute obstruction. No evidence of large or small bowel obstruction. Normal appearing append ix. Small focus of small bowel intussusception in the left lower quadrant without evidence for assoc iated wall thickening or obstruction. No abscess or abnormal fluid collection. IMPRESSION: 1. Small hiatal hernia. 2. Small focus of small bowel intussusception in the left lower quadrant, without evidence for mucos al fold thickening, obstruction, or other acute process. This can be a temporary intermittent proces s and is not necessarily pathologic. POS: [facility]
[2019-05-20] MEDS ORDERED: Ketorolac Tromethamine 30 MG/ML VIAL ONE (21:58)
[2019-05-20] MEDS ORDERED: Insulin Regular 300 UNITS/3 ML VIAL ONE (23:01)
== END 2019-05-20 23:20 | disposition home or self-care (01) ==
LOC: ERS 18:22
DX: R11.2 Nausea with vomiting, unspecified (principal); R19.7 Diarrhea, unspecified; I11.0 Hypertensive heart disease with heart failure; I50.9 Heart failure, unspecified; E11.40 Type 2 diabetes mellitus with diabetic neuropathy, unspecified; E78.5 Hyperlipidemia, unspecified; G43.909 Migraine, unspecified, not intractable, without status migrainosus; F41.9 Anxiety disorder, unspecified; F31.9 Bipolar disorder, unspecified; F20.9 Schizophrenia, unspecified; Z79.4 Long term (current) use of insulin; Z79.899 Other long term (current) drug therapy
CPT/HCPCS: 36415; 36416; 74177; 80053; 81003; 82010; 85025; 87077; 87086; 96361; 96372; 96374; 96375; C9113; J0500; J1815; J1885; J2405; Q9966

== ENCOUNTER 2019-05-31 22:02 | Emergency (ER) | payer SELFPAY ==
[2019-05-31] MEDS ORDERED: Metoclopramide HCl 10 MG/2 ML VIAL ONE (22:31)
[2019-05-31 22:37] LABS: #Eosinphils 0.1 thou/uL (0.0-0.7); #Lymphocytes 3.3 thou/uL (1.20-3.40); #Monocytes 0.5 thou/uL (0.11-0.59); %Basophils 0.6 % (0.0-1.0); %Eosinophils 2.1 % (0.0-10.0); %Lymphocytes 47.5 % (21.0-51.0); %Monocytes 6.4 % (0.0-10.0); %Neutrophils 43.4 % (42.0-75.0); Hemoglobin 13.7 g/dL (12.0-16.0); Mean Corpuscular HGB CONC 33.5 g/dL (32.0-36.0); Mean Corpuscular Hemoglobin 29.5 pg (27.0-31.0); Mean Platelet Volume 8.6 fL (7.4-10.4); Platelet Count 225 thou/uL (130-400); RBC Distribution Width 12.1 % (11.5-14.5); Red Blood Cell (RBC) Count 4.64 mill/uL (4.20-5.40)
--- NOTE | 2019-05-31 22:39 | RAD ---
EXAM: LEFT SHOULDER THREE VIEWS: 05/31/19 HISTORY: Left shoulder pain. FINDINGS/IMPRESSION: No fracture, dislocation, or other significant acute osseous abnormality. POS: [facility]
[2019-05-31 22:58] LABS: ALT (SGPT) 12 U/L (8-55); AST (SGOT) 8 U/L (5-34); Albumin 3.2 g/dL (3.5-5.0); Alkaline Phosphatase 75 U/L (40-150); Anion Gap 12 mmol/L (10-20); BUN (Urea Nitrogen) 9 mg/dL (7.0-18.7); Bilirubin, Total 0.3 mg/dL (0.2-1.2); Calc. Creatinine Clearance 0 mL/min (70-130); Calcium 8.5 mg/dL (7.8-10.44); Carbon Dioxide 24 mmol/L (22-29); Chloride 104 mmol/L (98-107); Estimated GFR-MDRD 83; Globulin 2.2 g/dL (2.4-3.5); Glucose 371 mg/dL (70-105); Potassium 3.8 mmol/L (3.5-5.1); Protein, Total 5.4 g/dL (6.0-8.3); Sodium 136 mmol/L (136-145)
== END 2019-05-31 23:30 | disposition home or self-care (01) ==
LOC: ERS 22:02
DX: R51 Headache (principal); E11.65 Type 2 diabetes mellitus with hyperglycemia; M25.512 Pain in left shoulder; I11.0 Hypertensive heart disease with heart failure; I50.9 Heart failure, unspecified; E78.5 Hyperlipidemia, unspecified; E11.9 Type 2 diabetes mellitus without complications; E11.40 Type 2 diabetes mellitus with diabetic neuropathy, unspecified; F41.9 Anxiety disorder, unspecified; F31.9 Bipolar disorder, unspecified; F20.9 Schizophrenia, unspecified; Z79.4 Long term (current) use of insulin; Z79.899 Other long term (current) drug therapy
CPT/HCPCS: 36416; 80053; 82010; 84484; 85025; 93005; 96365; J2765

== ENCOUNTER 2019-08-14 17:12 | Emergency (ER) | payer OTHER, SELFPAY ==
[2019-08-14 18:34] LABS: #Basophils 0.1 thou/uL (0.0-0.2); #Eosinphils 0.2 thou/uL (0.0-0.7); #Lymphocytes 3.8 thou/uL (1.20-3.40); #Monocytes 0.4 thou/uL (0.11-0.59); %Basophils 1.3 % (0.0-1.0); %Eosinophils 2.1 % (0.0-10.0); %Lymphocytes 44.5 % (21.0-51.0); %Monocytes 5.2 % (0.0-10.0); %Neutrophils 46.9 % (42.0-75.0); Hemoglobin 14.2 g/dL (12.0-16.0); Mean Corpuscular HGB CONC 34.3 g/dL (32.0-36.0); Mean Corpuscular Hemoglobin 29.9 pg (27.0-31.0); Mean Corpuscular Volume 87.1 fL (78.0-98.0); Mean Platelet Volume 8.9 fL (7.4-10.4); Platelet Count 245 thou/uL (130-400); RBC Distribution Width 12.1 % (11.5-14.5); Red Blood Cell (RBC) Count 4.74 mill/uL (4.20-5.40); White Blood Cell (WBC) Count 8.5 thou/uL (4.8-10.8)
[2019-08-14] MEDS ORDERED: Metoclopramide HCl 10 MG/2 ML VIAL ONE (18:34)
[2019-08-14] MEDS ORDERED: diphenhydrAMINE 50 MG/ML VIAL ONE (18:34)
[2019-08-14] MEDS ORDERED: Ketorolac Tromethamine 30 MG/ML VIAL ONE (18:34)
[2019-08-14 18:42] LABS: BHCG - Serum Negative (NEGATIVE); Pregs Control Background? CLEAR/WHITE (CLR/WHITE); Pregs Control Bar Appear? YES (CONTROL BAR)
[2019-08-14 18:59] LABS: ALT (SGPT) 11 U/L (8-55); AST (SGOT) 8 U/L (5-34); Albumin 3.9 g/dL (3.5-5.0); Alkaline Phosphatase 99 U/L (40-110); Anion Gap 13 mmol/L (10-20); BUN (Urea Nitrogen) 10 mg/dL (7.0-18.7); Bilirubin, Total 0.4 mg/dL (0.2-1.2); Calc. Creatinine Clearance 0 mL/min (70-130); Calcium 9.5 mg/dL (7.8-10.44); Carbon Dioxide 23 mmol/L (22-29); Chloride 100 mmol/L (98-107); Estimated GFR-MDRD 70; Globulin 3.3 g/dL (2.4-3.5); Glucose 453 mg/dL (70-105); Potassium 4.4 mmol/L (3.5-5.1); Protein, Total 7.2 g/dL (6.0-8.3); Sodium 132 mmol/L (136-145)
[2019-08-14] MEDS ORDERED: Proparacaine 0.5% Opth 15 ML BOT ONE (20:05)
[2019-08-14] MEDS ORDERED: Fluorescein Opthalmic Strip ONE (20:05)
== END 2019-08-14 21:26 | disposition home or self-care (01) ==
LOC: ERS 17:12
DX: E11.65 Type 2 diabetes mellitus with hyperglycemia (principal); E11.40 Type 2 diabetes mellitus with diabetic neuropathy, unspecified; I11.0 Hypertensive heart disease with heart failure; I50.9 Heart failure, unspecified; K58.9 Irritable bowel syndrome, unspecified; F20.9 Schizophrenia, unspecified; F31.9 Bipolar disorder, unspecified; F41.9 Anxiety disorder, unspecified; Z79.4 Long term (current) use of insulin; Z79.899 Other long term (current) drug therapy
CPT/HCPCS: 36416; 80053; 84703; 85025; 87804; 96361; 96365; 96366; 96375; J1200; J1885; J2765

== ENCOUNTER 2019-09-15 19:08 | Observation (INO) | payer SELFPAY ==
[2019-09-15 19:32] LABS: #Eosinphils 0.1 thou/uL (0.0-0.7); #Lymphocytes 2.8 thou/uL (1.20-3.40); #Monocytes 0.4 thou/uL (0.11-0.59); %Basophils 0.4 % (0.0-1.0); %Eosinophils 2.1 % (0.0-10.0); %Lymphocytes 43.8 % (21.0-51.0); %Monocytes 6.7 % (0.0-10.0); %Neutrophils 47.1 % (42.0-75.0); Hemoglobin 14.1 g/dL (12.0-16.0); Mean Corpuscular HGB CONC 33.1 g/dL (32.0-36.0); Mean Corpuscular Hemoglobin 29.5 pg (27.0-31.0); Mean Corpuscular Volume 89.3 fL (78.0-98.0); Mean Platelet Volume 8.4 fL (7.4-10.4); Platelet Count 234 thou/uL (130-400); RBC Distribution Width 12.1 % (11.5-14.5); Red Blood Cell (RBC) Count 4.78 mill/uL (4.20-5.40); White Blood Cell (WBC) Count 6.4 thou/uL (4.8-10.8)
[2019-09-15 19:57] LABS: ALT (SGPT) 12 U/L (8-55); AST (SGOT) 10 U/L (5-34); Albumin 3.6 g/dL (3.5-5.0); Alkaline Phosphatase 92 U/L (40-110); Anion Gap 11 mmol/L (10-20); BUN (Urea Nitrogen) 13 mg/dL (7.0-18.7); Bilirubin, Total 0.4 mg/dL (0.2-1.2); Calc. Creatinine Clearance 0 mL/min (70-130); Calcium 8.5 mg/dL (7.8-10.44); Carbon Dioxide 25 mmol/L (22-29); Chloride 102 mmol/L (98-107); Estimated GFR-MDRD 75; Globulin 2.5 g/dL (2.4-3.5); Glucose 384 mg/dL (70-105); Lipase 22 U/L (8-78); Potassium 3.6 mmol/L (3.5-5.1); Protein, Total 6.1 g/dL (6.0-8.3); Sodium 134 mmol/L (136-145)
[2019-09-15] MEDS ORDERED: Aspirin Chewable 81 MG TAB ONE (20:10)
--- NOTE | 2019-09-15 21:16 | RAD ---
PORTABLE CHEST ONE VIEW: Date: 09-15-19 Time: 7:05 p.m. History: Chest pain FINDINGS: Comparison is made with exam of 04-11-19. The heart size is normal. The lungs are well expanded without focal areas of consolidation, pneumotho races or pleural effusions. IMPRESSION: No acute process. POS: [facility]
--- NOTE | 2019-09-15 22:58 | HP ---
PRIMARY CARE PROVIDER: Jenni Marquez NP at [place], [place]. CHIEF COMPLAINT: Leg and chest pain. HISTORY OF PRESENT ILLNESS: This is a 44-year-old female, who presents to [facility] complaining of a plethora of somatic complaints notably, left leg pain with cramping in the thigh and the calf, worsened with movement or trying to stretch. The patient states she has had intermittent cramping of the leg increasing over the last several days, making her stop her normal activities. The patient denied any trauma to the leg, swelling, discoloration, but does admit to some numbness. The patient denied any lower back pain or trauma, difficulty with urination or incontinence. The patient denied any recent travel history, family members with similar symptoms, or change to her activity level. The patient also complained of left outer chest pain without associated jaw or left arm pain. The patient states she had some nausea and was eating crackers and water until her symptoms improved. The patient denied any fever, chills, change to her bowel habits, exposure to new medications or dietary regimen. In the emergency room, the patient underwent general evaluation including chest imaging showing no acute process. Metabolic screening was essentially unremarkable except for elevated glucose of 384. The patient received aspirin 162 mg in the emergency room. PAST MEDICAL HISTORY: 1. Diabetes mellitus type 2, insulin requiring, poor control. 2. Obesity. 3. Tobacco abuse. 4. Hypertension. 5. Hyperlipidemia. 6. Peripheral neuropathy. PAST SURGICAL HISTORY: 1. Status post bilateral tubal ligation. 2. Status post cataract removal x2. 3. Status post cardiac catheterization with negative findings. PAST PSYCHIATRIC HISTORY: 1. Anxiety disorder. 2. Bipolar disorder. 3. Question of schizophrenia. CURRENT MEDICATIONS: 1. Xanax 2 mg p.o. at bedtime. 2. Aspirin 81 mg p.o. daily. 3. Lipitor 40 mg p.o. at bedtime. 4. Flexeril 10 mg p.o. t.i.d. p.r.n. 5. Doxepin 100 mg p.o. at bedtime. 6. Gabapentin 300 mg p.o. t.i.d. 7. Levemir 23 units subcutaneously b.i.d. 8. Lisinopril/hydrochlorothiazide 20/25 mg 1 tablet p.o. b.i.d. 9. Metoprolol succinate 100 mg p.o. daily. 10. Nitroglycerin 0.4 mg sublingually p.r.n. chest pain. 11. Spironolactone 25 mg p.o. daily. 12. Glucophage 1000 mg p.o. b.i.d. ALLERGIES: TO BACTRIM. FAMILY HISTORY: Positive for hypertension and diabetes mellitus. SOCIAL HISTORY: Resides in [place], [place]. Smokes up to a pack of cigarettes daily. Occasional alcohol use. No illicit drug use. REVIEW OF SYSTEMS: CONSTITUTIONAL: Negative for weight loss or gain, ability to conduct usual activities. SKIN: Negative for rash, itching. EYES: Negative for double vision, pain. ENT/MOUTH: Negative for nose bleeding, neck stiffness, pain, tenderness. CARDIOVASCULAR: Negative for palpitations, dyspnea on exertion, orthopnea. RESPIRATORY: Negative for shortness of breath, wheezing, cough, hemoptysis, fever or night sweats. GASTROINTESTINAL: Negative for poor appetite, abdominal pain, heartburn, nausea, vomiting, constipation, or diarrhea. GENITOURINARY: Negative for urgency, frequency, dysuria, nocturia. MUSCULOSKELETAL: Negative for pain, swelling. NEUROLOGIC/PSYCHIATRIC: Negative for anxiety, depression. ALLERGY/IMMUNOLOGIC: Negative for skin rash, bleeding tendency. Otherwise negative except as stated per HPI. PHYSICAL EXAMINATION: VITAL SIGNS: On admission, blood pressure 140/88, pulse 80, respiratory rate 16, temperature 98.2 degrees Fahrenheit, O2 saturation 100% on room air. GENERAL APPEARANCE: This is a 44-year-old female, alert and oriented x3, pleasant, responsive, in no acute distress. HEENT: Pupils are equal, round, reactive to light and accommodation. Extraocular muscles are intact. No scleral icterus. No conjunctival injection. Nares patent. OP is clear. Teeth in poor repair. NECK: Supple. No cervical adenopathy. No thyromegaly. No carotid bruits. No JVD appreciated. Cervical spine with full active and passive range of motion. No meningeal signs noted. CHEST: Lungs are clear to auscultation bilaterally. CARDIOVASCULAR: S1, S2 without noted murmur, rub, or gallop. Heart sounds are distant. Tenderness to palpation in the left upper chest wall elicited. ABDOMEN: Obese, soft, nontender, and nondistended. Landmarks are difficult to palpate due to patient's body habitus. No palpable mass. No rebound or guarding appreciated. EXTREMITIES: Warm and dry with fair turgor. No clubbing, cyanosis, or asymmetric edema appreciated. Pulses palpable distally at the dorsalis pedis, posterior tibial, and popliteal arteries bilaterally. Capillary refill less than 2 seconds. NEUROLOGIC: Cranial nerves 2 through 12 are grossly intact. No focal or lateralizing signs appreciated. PERTINENT LABORATORY AND X-RAY FINDINGS: Sodium 134, potassium 3.6, chloride 102, CO2 of 25, BUN 13, creatinine 0.98, estimated GFR 75, glucose 384, calcium 8.5. LFTs within normal limits. Troponin I negative x1. Lipase 22. CBC within normal limits. D-dimer less than 0.27. Portable chest x-ray dated 09/15/2019, showed no acute cardiopulmonary process. EKG dated 09/15/2019, by my interpretation shows sinus mechanism with heart rates in the 70s. Normal R-wave progression noted in the precordial leads. Normal axis. No acute ST-T wave changes appreciated. ASSESSMENT AND PLAN: 1. Left leg pain/muscle cramps. The patient will be observed on the telemetry unit. We will add intravenous normal saline at 100 mL/h. Encourage increased free water intake orally. Check magnesium and phosphorus level. 2. Chest pain. Noncardiac and atypical. Left heart catheterization in October 2018 with negative findings. Continue aspirin 81 mg daily. 3. Hyperlipidemia. Continue Lipitor 40 mg p.o. at bedtime. 4. Hypertension. Continue home blood pressure regimen and monitor clinical response. 5. Diabetes mellitus type 2, insulin requiring. Continue Levemir 23 units subcutaneously b.i.d. and Glucophage 1000 mg b.i.d. Serial Accu-Cheks before meals and at bedtime. ADA diet. Insulin sliding scale for reflexive coverage. 6. Prophylaxis. SCDs while in bed. Pepcid 20 mg p.o. b.i.d. CODE STATUS: Full. Surrogate medical decision maker not identified. Job ID: [id number]
[2019-09-15 23:03] LABS: Troponin I Less than 0.010 ng/mL (< 0.028)
[2019-09-16 02:21] LABS: Troponin I Less than 0.010 ng/mL (< 0.028)
[2019-09-16] MEDS ORDERED: Dextrose 50% Abboject 50 ML SYRINGE SLOW IVP PRN (08:09)
[2019-09-16] MEDS ORDERED: Metoclopramide HCl 10 MG TAB PO PRN (08:09)
[2019-09-16] MEDS ORDERED: HumaLOG 300 UNITS/3 ML VIAL SC PRN ×2 (08:09)
[2019-09-16] MEDS ORDERED: Ondansetron PF 4 MG/2 ML Vial IVP PRN (08:09)
[2019-09-16] MEDS ORDERED: Sodium Chloride 0.9% 1,000 ML IV SCH (08:09)
[2019-09-16] MEDS ORDERED: hydrALAZINE 20 MG/ML VIAL SLOW IVP PRN (08:09)
[2019-09-16] MEDS ORDERED: Nitroglycerin 0.4 MG TAB (25 Tab Bottle) PO PRN (08:09)
[2019-09-16] MEDS ORDERED: Labetalol HCl 100 MG/20 ML VIAL SLOW IVP PRN (08:09)
[2019-09-16] MEDS ORDERED: Calcium Carbonate 500 MG ChewTAB PO PRN (08:09)
[2019-09-16] MEDS ORDERED: Acetaminophen 500 MG TAB PO PRN (08:09)
[2019-09-16] MEDS ORDERED: Dextrose 5% in Water 1,000 ML IV PRN (08:09)
[2019-09-16] MEDS ORDERED: Ondansetron ODT 4 MG TAB PO PRN (08:09)
[2019-09-16 08:14] VITALS: BMI 38.0
[2019-09-16] MEDS ORDERED: ALPRAZolam 1 MG TAB PO PRN (08:54)
[2019-09-16] MEDS ORDERED: Famotidine 20 MG TAB PO SCH (09:00)
[2019-09-16] MEDS ORDERED: Lisinopril/Hydrochlorothiazide 20/25 mg Tablet PO SCH (09:00)
[2019-09-16] MEDS ORDERED: Insulin Glargine 23 UNITS in Pre-Filled Syringe 1 EACH SC SCH ×2 (09:00→21:00)
[2019-09-16] MEDS ORDERED: Aspirin 81 mg Enteric Coated Tablet PO SCH (09:00)
[2019-09-16] MEDS ORDERED: Spironolactone 25 MG TAB PO SCH (09:00)
[2019-09-16] MEDS ORDERED: INSULIN DETEMIR 23 UNIT SQ SCH (09:00)
[2019-09-16 10:04] LABS: #Eosinphils 0.1 thou/uL (0.0-0.7); #Lymphocytes 2.9 thou/uL (1.20-3.40); #Monocytes 0.5 thou/uL (0.11-0.59); #Neutrophils 3.7 thou/uL (1.40-6.50); %Basophils 0.6 % (0.0-1.0); %Eosinophils 1.1 % (0.0-10.0); %Lymphocytes 40.6 % (21.0-51.0); %Monocytes 6.3 % (0.0-10.0); %Neutrophils 51.4 % (42.0-75.0); Hemoglobin 14.2 g/dL (12.0-16.0); Mean Corpuscular HGB CONC 32.6 g/dL (32.0-36.0); Mean Corpuscular Hemoglobin 28.9 pg (27.0-31.0); Mean Corpuscular Volume 88.7 fL (78.0-98.0); Mean Platelet Volume 8.4 fL (7.4-10.4); Platelet Count 245 thou/uL (130-400); RBC Distribution Width 12.2 % (11.5-14.5); Red Blood Cell (RBC) Count 4.92 mill/uL (4.20-5.40); White Blood Cell (WBC) Count 7.2 thou/uL (4.8-10.8)
[2019-09-16 10:15] LABS: Hemoglobin A1c 12.8 % (4.0-6.0)
[2019-09-16 10:35] LABS: ALT (SGPT) 12 U/L (8-55); AST (SGOT) 10 U/L (5-34); Albumin 3.6 g/dL (3.5-5.0); Alkaline Phosphatase 85 U/L (40-110); Anion Gap 11 mmol/L (10-20); BUN (Urea Nitrogen) 9 mg/dL (7.0-18.7); Bilirubin, Total 0.5 mg/dL (0.2-1.2); CK (CPK) 71 U/L (29-168); Calc. Creatinine Clearance 164 mL/min (70-130); Calcium 8.7 mg/dL (7.8-10.44); Carbon Dioxide 21 mmol/L (22-29); Chloride 108 mmol/L (98-107); Estimated GFR-MDRD Greater than 90; Globulin 2.6 g/dL (2.4-3.5); Glucose 295 mg/dL (70-105); Phosphorus 2.9 mg/dL (2.3-4.7); Potassium 4.2 mmol/L (3.5-5.1); Protein, Total 6.2 g/dL (6.0-8.3); Sodium 136 mmol/L (136-145)
[2019-09-16 11:54] VITALS: BP 125/69; TEMP 98.6
[2019-09-16] MEDS ORDERED: Insulin Glargine 30 UNITS in Pre-Filled Syringe 1 EACH SC SCH (12:15)
[2019-09-16] MEDS ORDERED: Atorvastatin Calcium 40 MG TAB PO SCH (21:00)
--- NOTE | 2019-09-17 09:20 | DIS ---
DATE OF ADMISSION: 09/15/2019 DATE OF DISCHARGE: 09/16/2019 PRIMARY CARE PHYSICIAN: Tod Washburn. DISCHARGE DIAGNOSES: 1. Atypical chest pain. 2. Left leg pain. 3. Uncontrolled diabetes mellitus with hemoglobin A1c of 12.7. 4. Hypertension. 5. Hyperlipidemia. 6. Morbid obesity. 7. Noncompliance. 8. Anxiety disorder. 9. Depression. HOSPITAL COURSE: A 44-year-old obese female with known history of diabetes, hypertension, and noncompliance, admitted due to multiple somatic complaints including leg pain and cramps as well as a chest pain. Symptoms have been chronic, but worsened recently. Of note, the patient was found to have elevated blood glucose of 384 on presentation. She admitted to not being very compliant with her medications. The patient has had prior history of chest pain in the past, which has been evaluated with stress test and cardiac catheterization with cardiac catheterization being in October 2018. Acute myocardial infarction was ruled out with serial troponin. The patient was treated symptomatically with analgesics and with improvement. Further evaluation revealed hemoglobin A1c of 12.7. I had an extensive discussion with the patient about compliance with medications including insulin. Insulin treatment was adjusted aggressively due to gross inadequate treatment. She remained stable and was subsequently discharged home. PHYSICAL EXAMINATION: VITAL SIGNS: Temperature 98.6, pulse 72, respiratory rate 16, SpO2 of 99% on room air, and blood pressure is 125/69. GENERAL: Obese female, in no distress. Afebrile. Anicteric. Acyanotic. HEENT: Normocephalic and atraumatic. Oral mucosa is moist. CARDIOVASCULAR: Regular rhythm and rate with normal heart sounds 1 and 2. RESPIRATORY: Good air entry bilaterally with no crackle or rhonchi or use of accessory muscles. GI: Obese, soft, nontender, and nondistended with normal bowel sounds. EXTREMITIES: Grossly normal looking atraumatic with no edema or erythema. METAL ROOFING MECHANIC: Conscious, alert, oriented x3 with appropriate mental status. PSYCHIATRIC: Flat affect, but cooperative. DISCHARGE CONDITION: Improved. DISCHARGE DISPOSITION: Home. DISCHARGE INSTRUCTIONS: Advised to follow with PCP in 3 to 5 days. The patient also was instructed to be compliant with her medications and check blood sugar and keep a log, which she will show the PCP during followup. DISCHARGE MEDICATIONS: 1. Xanax 2 mg p.o. daily at bedtime p.r.n. 2. Aspirin 81 mg p.o. daily. 3. Lipitor 40 mg p.o. daily at bedtime. 4. Cyclobenzaprine 10 mg p.o. t.i.d. p.r.n. 5. Doxepin 100 mg p.o. daily at bedtime. 6. Gabapentin 300 mg p.o. t.i.d. 7. Reglan 10 mg p.o. before meals and at bedtime. 8. Metoprolol succinate 100 mg p.o. daily. 9. Nitroglycerin 0.4 mg sublingual p.r.n. for chest pain. 10. Spironolactone 25 mg p.o. daily. 11. Humalog aggressive sliding scale. 12. Levemir 60 units subcutaneously daily. 13. Lisinopril 20 mg p.o. daily. 14. Metformin 1000 mg p.o. b.i.d. 15. Ondansetron 4 mg q.6 p.r.n. for nausea and vomiting. Job ID: [id number]
== END 2019-09-16 17:08 | disposition home or self-care (01) ==
LOC: ERS 19:08 → ERHOLD 21:05 → 2SW 09-16 08:06
PROVIDERS: ADMIT Family Medicine; ATTEND Family Medicine
DX: R07.89 Other chest pain (principal); M79.605 Pain in left leg; E11.42 Type 2 diabetes mellitus with diabetic polyneuropathy; I10 Essential (primary) hypertension; E78.5 Hyperlipidemia, unspecified; F41.9 Anxiety disorder, unspecified; F31.9 Bipolar disorder, unspecified; F17.210 Nicotine dependence, cigarettes, uncomplicated; E66.01 Morbid (severe) obesity due to excess calories; Z68.38 Body mass index [BMI] 38.0-38.9, adult; Z91.14 Patient's other noncompliance with medication regimen; Z79.4 Long term (current) use of insulin; Z79.82 Long term (current) use of aspirin; Z79.899 Other long term (current) drug therapy; Z88.2 Allergy status to sulfonamides
CPT/HCPCS: 36415; 36416; 71045; 80053; 82550; 83036; 83690; 83735; 84100; 84484; 85025; 85379; 93005; G0378; J1815

== ENCOUNTER 2019-09-28 00:13 | Emergency (ER) | payer SELFPAY | END 2019-09-28 00:31 | disposition home or self-care (01) | LOC: ERS 00:13 | DX: R60.0 Localized edema (principal); E78.5 Hyperlipidemia, unspecified; E78.00 Pure hypercholesterolemia, unspecified; I10 Essential (primary) hypertension; E11.40 Type 2 diabetes mellitus with diabetic neuropathy, unspecified; G43.909 Migraine, unspecified, not intractable, without status migrainosus; F41.9 Anxiety disorder, unspecified; F31.9 Bipolar disorder, unspecified; F20.9 Schizophrenia, unspecified; Z79.4 Long term (current) use of insulin; Z79.899 Other long term (current) drug therapy | CPT/HCPCS: 99283 ==

== ENCOUNTER 2019-10-15 19:58 | Emergency (ER) | payer SELFPAY | END 2019-10-15 20:42 | disposition left against medical advice (07) | LOC: ERS 19:58 | DX: Z53.21 Procedure and treatment not carried out due to patient leaving prior to being seen by health care provider (principal) ==

== ENCOUNTER 2019-10-16 16:30 | Emergency (ER) | payer SELFPAY ==
[2019-10-16] MEDS ORDERED: Famotidine 20 MG TAB ONE (17:54)
[2019-10-16] MEDS ORDERED: Dexamethasone 10 MG/ML VIAL ONE (17:54)
[2019-10-16] MEDS ORDERED: diphenhydrAMINE 50 MG CAP ONE (17:54)
== END 2019-10-16 18:12 | disposition home or self-care (01) ==
LOC: ERS 16:30
DX: R21 Rash and other nonspecific skin eruption (principal); E11.40 Type 2 diabetes mellitus with diabetic neuropathy, unspecified; I11.0 Hypertensive heart disease with heart failure; I50.9 Heart failure, unspecified; E78.5 Hyperlipidemia, unspecified; F41.9 Anxiety disorder, unspecified; Z79.4 Long term (current) use of insulin; Z79.899 Other long term (current) drug therapy
CPT/HCPCS: 99282; J1100; Q0163

== ENCOUNTER 2020-02-03 18:12 | Emergency (ER) | payer SELFPAY ==
--- NOTE | 2020-02-03 21:00 | ULT ---
LIMITED RIGHT BREAST ULTRASOUND: Date: 02-03-2020 Provided Clinical History: Right breast palpable abnormalities and axillary infection. FINDINGS: Limited sonographic interrogation of the right axilla in the region of patient concern demonstrates a normal sonographic appearance to the tissues in this region. Limited sonographic interrogation of the areas of palpable concern at the 12 and 10 o'clock positions of the right breast was performed. At the 12 o'clock position of the right breast approximately 6 cm from the nipple is an irregular hypoechoic mass measuring at least 1.3 cm. At the 12 o'clock position of the right breast about 7 cm from the nipple is a hypoechoic mass measur ing about 6 mm demonstrating somewhat poorly defined and irregular margins. At the 10 o'clock position of the right breast about 13 cm from the nipple is a poorly visualized hyp oechoic mass measuring at least 6 mm. The margins of this process are not well visualized and this ar ea is incompletely characterized. IMPRESSION: Multiple irregular hypoechoic masses involving the right breast, which could reflect multifocal neopl asm. Correlation with diagnostic mammography is recommended. POS: ROMAIN
== END 2020-02-03 20:45 | disposition home or self-care (01) ==
LOC: ERS 18:12
DX: N63.0 Unspecified lump in unspecified breast (principal); E11.40 Type 2 diabetes mellitus with diabetic neuropathy, unspecified; I11.0 Hypertensive heart disease with heart failure; I50.9 Heart failure, unspecified; E78.5 Hyperlipidemia, unspecified; F41.9 Anxiety disorder, unspecified; Z79.899 Other long term (current) drug therapy; Z79.84 Long term (current) use of oral hypoglycemic drugs

== ENCOUNTER 2020-02-05 08:05 | Outpatient (CLI) | payer MEDICAID ==
--- NOTE | 2020-02-05 09:40 | MMO ---
Bilateral MAMMO Bilat Diag [facility]. CLINICAL HISTORY: Patient is 45 years old and is seen for diagnostic exam and palpable abnormality in the right breast. The patient has the following family history of breast cancer: maternal grandmother. The patient has no personal history of cancer. VIEWS: The views performed were: bilateral craniocaudal with tomosynthesis; bilateral mediolateral oblique; bilateral mediolateral oblique with tomosynthesis; bilateral mediolateral; and bilateral mediolateral with tomosynthesis. FILMS COMPARED: The present examination has been compared to prior imaging studies performed on 02/03/2020, and at [facility] [place] on 02/05/2020. This study has been interpreted with the assistance of computer-aided detection. MAMMOGRAM FINDINGS: There are scattered fibroglandular densities. There are benign appearing calcifications seen in both breasts. Palpable areas in right breast are not appreciated on mammogram. Ultrasound reveals nonspecific findings. See ultrasound report. Recommend repeat ultrasound after antibiotic course. IMPRESSION: PROBABLY BENIGN. FOLLOW-UP RIGHT BREAST ULTRASOUND IN 3 MONTHS AFTER ANTIBIOTIC COURSE IS RECOMMENDED. THE RESULTS OF THIS EXAM WERE SENT TO THE PATIENT. ACR BI-RADS Category 3 - Probably benign finding - short interval follow-up suggested. [facility] will notify the patient of the need for additional imaging services. MAMMOGRAPHY NOTE: 1. A negative mammogram report should not delay a biopsy if a dominant of clinically suspicious mass is present. 2. Approximately 10% to 15% of breast cancers are not detected by mammography. 3. Adenosis and dense breasts may obscure an underlying neoplasm. Reported by: ROSALIA MORGAN MD Electonically Signed: [id number]
--- NOTE | 2020-02-05 10:47 | ULT ---
ULTRASOUND RIGHT BREAST: Date: 02/05/2020 INDICATION: Ultrasound of right breast is performed to assess tender areas in the right breast. The areas are prudencio cribed by the patient at 10 o'clock and 12 o'clock. Patient recently was seen at [facility] and an ultrasound performed at that time is reviewed. Th at exam revealed hypoechoic areas at 12 o'clock and 10 o'clock. The mammogram showed scattered fibroglandular densities with no definite mass seen with mammography. FINDINGS: At 10 o'clock right breast, 7.0 cm from nipple, is an ill-defined, isoechoic focus measuring 0.5-1.0 cm. This is much smaller and more isoechoic when compared to the ultrasound images from [facility]. At 12 o'clock right breast, 4.0 cm from the nipple, there are two small hypoechoic foci, each measuri ng approximately 4-5 mm. These are somewhat irregular but do show posterior enhancement and could be small cyst or abscess collections. At 2 o'clock, there is a small hypoechoic focus measuring 5.0 mm with posterior enhancement suggestin g a small cystic lesion. These areas are tender, as noted by the technologist, and the breast is warm and somewhat red. IMPRESSION: Mastitis is suspected given the clinical findings of tenderness and warmness with ill-defined ultraso und findings. The ultrasound findings appear to have changed when compared to the recent ultrasound a t [facility]. The patient was on a course of antibiotics for lymphadenitis in the right axilla a pproximately 2 weeks ago. Recommend patient be returned to antibiotic treatment with a 10-14 day course of antibiotics. Recomme nd repeat breast ultrasound after antibiotic course. Findings were discussed with Nurse Practitioner, Martha Chase, at the time of this dictation. CODE CR.
== END 2020-02-05 08:06 | disposition home or self-care (01) ==
LOC: BICMAMMO 08:05
PROVIDERS: ATTEND Nurse Practitioner
DX: N63.10 Unspecified lump in the right breast, unspecified quadrant (principal)
CPT/HCPCS: 77066; G0279

== ENCOUNTER 2020-09-20 22:19 | Emergency (ER) | payer MEDICAID ==
[2020-09-20] MEDS ORDERED: Metoclopramide HCl 10 MG/2 ML VIAL ONE (23:00)
[2020-09-20] MEDS ORDERED: diphenhydrAMINE 50 MG/ML VIAL ONE (23:00)
== END 2020-09-21 00:35 | disposition home or self-care (01) ==
LOC: ERS 22:19
DX: R51.9 Headache, unspecified (principal); I11.0 Hypertensive heart disease with heart failure; I50.9 Heart failure, unspecified; E78.5 Hyperlipidemia, unspecified; E11.40 Type 2 diabetes mellitus with diabetic neuropathy, unspecified; F41.9 Anxiety disorder, unspecified; F31.9 Bipolar disorder, unspecified; F20.9 Schizophrenia, unspecified
CPT/HCPCS: 36416; 93005; 96374; 96375; J1200; J2765

== ENCOUNTER 2021-08-14 14:11 | Emergency (ER) | payer SELFPAY ==
[2021-08-14 14:47] LABS: #Basophils 0.1 thou/uL (0.0-0.2); #Eosinphils 0.2 thou/uL (0.0-0.7); #Lymphocytes 2.6 thou/uL (1.20-3.40); #Monocytes 0.4 thou/uL (0.11-0.59); #Neutrophils 5.1 thou/uL (1.40-6.50); %Basophils 0.8 % (0.0-1.0); %Eosinophils 2.1 % (0.0-10.0); %Lymphocytes 31.1 % (21.0-51.0); %Monocytes 4.8 % (0.0-10.0); %Neutrophils 61.2 % (42.0-75.0); Hemoglobin 13.6 g/dL (12.0-16.0); Mean Corpuscular Hemoglobin 30.1 pg (27.0-31.0); Mean Corpuscular Volume 88.7 fL (78.0-98.0); Mean Platelet Volume 8.5 fL (7.4-10.4); Platelet Count 256 thou/uL (130-400); RBC Distribution Width 12.2 % (11.5-14.5); White Blood Cell (WBC) Count 8.4 thou/uL (4.8-10.8)
[2021-08-14 15:14] LABS: ALT (SGPT) 15 U/L (8-55); AST (SGOT) 11 U/L (5-34); Albumin 3.5 g/dL (3.5-5.0); Alkaline Phosphatase 90 U/L (40-110); Anion Gap 9 mmol/L (10-20); BUN (Urea Nitrogen) 12 mg/dL (7.0-18.7); Bilirubin, Total 0.4 mg/dL (0.2-1.2); Calc. Creatinine Clearance 0 mL/min (70-130); Carbon Dioxide 27 mmol/L (22-29); Chloride 101 mmol/L (98-107); Globulin 2.5 g/dL (2.4-3.5); Glucose 386 mg/dL (70-105); Lipase 20 U/L (8-78); Potassium 3.9 mmol/L (3.5-5.1); Sodium 133 mmol/L (136-145)
[2021-08-14 16:06] LABS: Bilirubin Negative (Negative); Blood, Urine Negative (Negative); Clarity Clear (Clear); Glucose, Urine (Dipstick) Greater than 1000 mg/dL (Negative); Ketone, Urine Negative (Negative); Leukocyte Negative Leu/uL (Negative); Nitrite Negative (Negative); Protein, Urine (Dipstick) Negative (Neg-Trace); Specific Gravity, Urine 1.031 (1.002-1.036); Urobilinogen Normal mg/dL (Less than 2); pH, Urine 6.5 (5.0-9.0)
[2021-08-14] MEDS ORDERED: Acetaminophen 500 MG TAB ONE (16:48)
== END 2021-08-14 16:55 | disposition home or self-care (01) ==
LOC: ERS 14:11
DX: K52.9 Noninfective gastroenteritis and colitis, unspecified (principal); J01.90 Acute sinusitis, unspecified; L85.3 Xerosis cutis; H44 Disorders of globe; I11.0 Hypertensive heart disease with heart failure; I50.9 Heart failure, unspecified; E11.9 Type 2 diabetes mellitus without complications; E78.5 Hyperlipidemia, unspecified; E78.00 Pure hypercholesterolemia, unspecified
CPT/HCPCS: 36415; 80053; 81003; 83690; 85025; 93005

== ENCOUNTER 2021-08-17 18:03 | Emergency (ER) | payer MEDICAID, SELFPAY ==
[2021-08-17 19:22] LABS: #Basophils 0.1 thou/uL (0.0-0.2); #Eosinphils 0.2 thou/uL (0.0-0.7); #Lymphocytes 3.1 thou/uL (1.20-3.40); #Monocytes 0.5 thou/uL (0.11-0.59); #Neutrophils 4.2 thou/uL (1.40-6.50); %Basophils 0.7 % (0.0-1.0); %Eosinophils 2.6 % (0.0-10.0); %Lymphocytes 38.1 % (21.0-51.0); %Monocytes 6.4 % (0.0-10.0); %Neutrophils 52.2 % (42.0-75.0); Hemoglobin 14.3 g/dL (12.0-16.0); Mean Corpuscular HGB CONC 34.5 g/dL (32.0-36.0); Mean Corpuscular Hemoglobin 30.7 pg (27.0-31.0); Mean Corpuscular Volume 88.9 fL (78.0-98.0); Mean Platelet Volume 8.5 fL (7.4-10.4); Platelet Count 208 thou/uL (130-400); RBC Distribution Width 12.4 % (11.5-14.5); Red Blood Cell (RBC) Count 4.66 mill/uL (4.20-5.40); White Blood Cell (WBC) Count 8.1 thou/uL (4.8-10.8)
[2021-08-17 19:49] LABS: ALT (SGPT) 13 U/L (8-55); AST (SGOT) 8 U/L (5-34); Albumin 3.2 g/dL (3.5-5.0); Alkaline Phosphatase 75 U/L (40-110); Anion Gap 14 mmol/L (10-20); BUN (Urea Nitrogen) 11 mg/dL (7.0-18.7); Bilirubin, Total 0.3 mg/dL (0.2-1.2); Calc. Creatinine Clearance 0 mL/min (70-130); Calcium 8.9 mg/dL (7.8-10.44); Carbon Dioxide 25 mmol/L (22-29); Chloride 102 mmol/L (98-107); Glucose 424 mg/dL (70-105); Lipase 14 U/L (8-78); Protein, Total 5.2 g/dL (6.0-8.3); Sodium 137 mmol/L (136-145)
[2021-08-17] MEDS ORDERED: Insulin Regular 300 UNITS/3 ML VIAL ONE (20:08)
== END 2021-08-17 21:11 | disposition home or self-care (01) ==
LOC: ERS 18:03
DX: S00.93XA Contusion of unspecified part of head, initial encounter (principal); S06.9X9A Unspecified intracranial injury with loss of consciousness of unspecified duration, initial encounter; E11.65 Type 2 diabetes mellitus with hyperglycemia; M54.2 Cervicalgia; R29.700 NIHSS score 0; I11.0 Hypertensive heart disease with heart failure; I50.9 Heart failure, unspecified; E78.5 Hyperlipidemia, unspecified; E78.00 Pure hypercholesterolemia, unspecified; W19.XXXA Unspecified fall, initial encounter; Z87.891 Personal history of nicotine dependence
CPT/HCPCS: 36415; 36416; 70450; 72125; 80053; 83690; 84484; 85025; 93005; J1815

== ENCOUNTER 2021-12-27 13:06 | Emergency (ER) | payer MEDICAID, SELFPAY | END 2021-12-27 14:20 | disposition home or self-care (01) | LOC: ERS 13:06 | DX: H10.9 Unspecified conjunctivitis (principal); I11.0 Hypertensive heart disease with heart failure; I50.9 Heart failure, unspecified; E11.9 Type 2 diabetes mellitus without complications; E78.5 Hyperlipidemia, unspecified; Z87.891 Personal history of nicotine dependence; Z79.899 Other long term (current) drug therapy; Z79.84 Long term (current) use of oral hypoglycemic drugs | CPT/HCPCS: 99283 ==

== ENCOUNTER 2022-03-26 09:41 | Emergency (ER) | payer SELFPAY | END 2022-03-26 11:19 | disposition home or self-care (01) | LOC: ERS 09:41 | DX: J18.9 Pneumonia, unspecified organism (principal); I50.9 Heart failure, unspecified; E11.9 Type 2 diabetes mellitus without complications; Z79.84 Long term (current) use of oral hypoglycemic drugs; Z79.899 Other long term (current) drug therapy | CPT/HCPCS: 71045 ==

== ENCOUNTER 2022-04-04 08:57 | Emergency (ER) | payer SELFPAY ==
[2022-04-04 10:07] LABS: #Eosinphils 0.1 thou/uL (0.0-0.7); #Lymphocytes 1.9 thou/uL (1.20-3.40); #Monocytes 0.4 thou/uL (0.11-0.59); #Neutrophils 4.7 thou/uL (1.40-6.50); %Basophils 0.7 % (0.0-1.0); %Lymphocytes 26.5 % (21.0-51.0); %Monocytes 5.3 % (0.0-10.0); %Neutrophils 66.5 % (42.0-75.0); Hemoglobin 13.4 g/dL (12.0-16.0); Mean Corpuscular HGB CONC 31.3 g/dL (32.0-36.0); Mean Corpuscular Hemoglobin 28.8 pg (27.0-31.0); Mean Corpuscular Volume 91.8 fL (78.0-98.0); Platelet Count 461 thou/uL (130-400); RBC Distribution Width 12.3 % (11.5-14.5); Red Blood Cell (RBC) Count 4.65 mill/uL (4.20-5.40)
[2022-04-04 10:32] LABS: ALT (SGPT) 13 U/L (8-55); AST (SGOT) 7 U/L (5-34); Albumin 3.2 g/dL (3.5-5.0); Alkaline Phosphatase 77 U/L (40-110); Anion Gap 10 mmol/L (10-20); BUN (Urea Nitrogen) 11 mg/dL (7.0-18.7); Bilirubin, Total 0.4 mg/dL (0.2-1.2); Calc. Creatinine Clearance 0 mL/min (70-130); Calcium 8.9 mg/dL (7.8-10.44); Carbon Dioxide 28 mmol/L (22-29); Chloride 99 mmol/L (98-107); Globulin 3.1 g/dL (2.4-3.5); Glucose 369 mg/dL (70-105); Potassium 4.2 mmol/L (3.5-5.1); Protein, Total 6.3 g/dL (6.0-8.3); Sodium 133 mmol/L (136-145)
[2022-04-04 11:20] LABS: Bacteria/HPF 1+ HPF (None Seen); Bilirubin Negative (Negative); Blood, Urine Negative (Negative); Clarity Clear (Clear); Glucose, Urine (Dipstick) Greater than 1000 mg/dL (Negative); Ketone, Urine Negative (Negative); Leukocyte 250 Leu/uL (Negative); Nitrite Negative (Negative); Protein, Urine (Dipstick) Negative (Neg-Trace); Specific Gravity, Urine 1.036 (1.002-1.036); Urobilinogen Normal mg/dL (Less than 2); pH, Urine 5.5 (5.0-9.0)
[2022-04-04] MEDS ORDERED: HumaLOG 300 UNITS/3 ML VIAL ONE (12:32)
== END 2022-04-04 13:15 | disposition home or self-care (01) ==
LOC: ERS 08:57
DX: J40 Bronchitis, not specified as acute or chronic (principal); E11.65 Type 2 diabetes mellitus with hyperglycemia; I11.0 Hypertensive heart disease with heart failure; I50.9 Heart failure, unspecified; E11.40 Type 2 diabetes mellitus with diabetic neuropathy, unspecified
CPT/HCPCS: 36415; 36416; 71045; 80053; 81003; 81015; 83605; 83735; 85025; 94760; J1815

== ENCOUNTER 2022-09-10 16:38 | Emergency (ER) | payer BC, SELFPAY ==
[2022-09-10] MEDS ORDERED: Dexamethasone 10 MG/ML VIAL ONE (17:22)
[2022-09-10] MEDS ORDERED: Ketorolac Tromethamine 30 MG/ML VIAL ONE (17:22)
[2022-09-10 17:51] LABS: #Eosinphils 0.1 thou/uL (0.0-0.7); #Lymphocytes 3.1 thou/uL (1.20-3.40); #Monocytes 0.5 thou/uL (0.11-0.59); #Neutrophils 5.1 thou/uL (1.40-6.50); %Basophils 0.2 % (0.0-1.0); %Eosinophils 1.3 % (0.0-10.0); %Lymphocytes 35.2 % (21.0-51.0); %Monocytes 5.9 % (0.0-10.0); %Neutrophils 57.3 % (42.0-75.0); Hemoglobin 15.2 g/dL (12.0-16.0); Mean Corpuscular HGB CONC 31.8 g/dL (32.0-36.0); Mean Corpuscular Hemoglobin 29.3 pg (27.0-31.0); Mean Corpuscular Volume 92.2 fl (78.0-98.0); Platelet Count 233 10x3/uL (130-400); RBC Distribution Width 12.4 % (11.5-14.5); Red Blood Cell (RBC) Count 5.18 mill/uL (4.20-5.40); White Blood Cell (WBC) Count 8.8 10x3/uL (4.8-10.8)
[2022-09-10 18:08] LABS: ALT (SGPT) 14 U/L (8-55); AST (SGOT) 10 U/L (5-34); Albumin 3.3 g/dL (3.5-5.0); Alkaline Phosphatase 87 U/L (40-110); Anion Gap 12 mmol/L (10-20); BUN (Urea Nitrogen) 12 mg/dL (7.0-18.7); Bilirubin, Total 0.4 mg/dL (0.2-1.2); Calc. Creatinine Clearance 0 mL/min (70-130); Calcium 8.9 mg/dL (7.8-10.44); Carbon Dioxide 25 mmol/L (22-29); Chloride 101 mmol/L (98-107); Estimated GFR 64; Globulin 2.6 g/dL (2.4-3.5); Lipase 15 U/L (8-78); Potassium 4.2 mmol/L (3.5-5.1); Protein, Total 5.9 g/dL (6.0-8.3); Sodium 134 mmol/L (136-145)
[2022-09-10 18:17] LABS: Glucose 556 mg/dL (70-105)
[2022-09-10 18:28] LABS: SARS-CoV-2 NAA Rapid Test Not Detected (NotDetected)
[2022-09-10 18:42] LABS: Actual Bicarbonate (HCO3v) 24 mEq/L (22-28); Analyzer IN Cardio ER; Base Excess -0.9 mEq/L (-2.0 to +3.0); Calcium, Ionized (venous) 1.16 mmol/L (1.16-1.32); Chloride (VBG) 99 mmol/L (98-106); Hemoglobin (Hb) 15.1 g/dL (11.7-16.0); Potassium (VBG) 4.46 mmol/L (3.70-5.30); Sodium 133.4 mmol/L (133-146); pH (venous) 7.38 (7.32-7.43)
[2022-09-10 18:59] LABS: Glucose 549 mg/dL (70-105)
[2022-09-10 19:40] LABS: Bilirubin Negative (Negative); Blood, Urine Negative (Negative); Clarity Clear (Clear); Glucose, Urine (Dipstick) Greater than 1000 mg/dL (Negative); Ketone, Urine Negative (Negative); Leukocyte Negative Leu/uL (Negative); Nitrite Negative (Negative); Protein, Urine (Dipstick) Negative (Neg-Trace); Specific Gravity, Urine 1.043 (1.002-1.036); Urobilinogen Normal mg/dL (Less than 2)
[2022-09-10] MEDS ORDERED: Metoclopramide HCl 10 MG/2 ML VIAL ONE (20:59)
== END 2022-09-10 23:02 | disposition home or self-care (01) ==
LOC: ERS 16:38
DX: B34.9 Viral infection, unspecified (principal); E11.65 Type 2 diabetes mellitus with hyperglycemia; E11.40 Type 2 diabetes mellitus with diabetic neuropathy, unspecified; Z20.822 Contact with and (suspected) exposure to COVID-19
CPT/HCPCS: 36415; 36416; 71045; 80053; 81003; 82010; 82805; 83690; 84484; 85025; 85379; 93005; 96374; 96375; J1100; J1885; J2765

== ENCOUNTER 2022-10-07 17:22 | Emergency (ER) | payer BC ==
[2022-10-07 18:16] LABS: %Basophils 0.5 % (0.0-1.0); %Eosinophils 2.5 % (0.0-10.0); %Lymphocytes 37.6 % (21.0-51.0); %Monocytes 5.9 % (0.0-10.0); %Neutrophils 53.5 % (42.0-75.0); Hemoglobin 14.4 g/dL (12.0-16.0); Mean Corpuscular HGB CONC 32.4 g/dL (32.0-36.0); Mean Corpuscular Hemoglobin 29.9 pg (27.0-31.0); Mean Corpuscular Volume 92.3 fl (78.0-98.0); Mean Platelet Volume 9.3 fL (7.4-10.4); Platelet Count 208 10x3/uL (130-400); RBC Distribution Width 12.8 % (11.5-14.5); Red Blood Cell (RBC) Count 4.82 mill/uL (4.20-5.40)
[2022-10-07 18:17] LABS: #Eosinphils 0.2 thou/uL (0.0-0.7); #Lymphocytes 3.4 thou/uL (1.20-3.40); #Monocytes 0.5 thou/uL (0.11-0.59); #Neutrophils 4.8 thou/uL (1.40-6.50)
[2022-10-07 18:28] LABS: Bilirubin Negative (Negative); Blood, Urine Negative (Negative); Clarity Clear (Clear); Glucose, Urine (Dipstick) Greater than 1000 mg/dL (Negative); Ketone, Urine Negative (Negative); Leukocyte Negative Leu/uL (Negative); Nitrite Negative (Negative); Protein, Urine (Dipstick) Negative (Neg-Trace); Urobilinogen Normal mg/dL (Less than 2); pH, Urine 5.5 (5.0-9.0)
[2022-10-07 18:36] LABS: Anion Gap 11 mmol/L (10-20); BUN (Urea Nitrogen) 9 mg/dL (7.0-18.7); Bilirubin, Total 0.4 mg/dL (0.2-1.2); Calc. Creatinine Clearance 0 mL/min (70-130); Calcium 8.7 mg/dL (7.8-10.44); Carbon Dioxide 24 mmol/L (22-29); Chloride 102 mmol/L (98-107); Estimated GFR 61; Potassium 4.2 mmol/L (3.5-5.1); Sodium 133 mmol/L (136-145)
[2022-10-07 18:37] LABS: ALT (SGPT) 13 U/L (8-55); AST (SGOT) 10 U/L (5-34); Albumin 3.4 g/dL (3.5-5.0); Alkaline Phosphatase 81 U/L (40-110); Globulin 2.1 g/dL (2.4-3.5); Protein, Total 5.5 g/dL (6.0-8.3)
[2022-10-07 18:40] LABS: Glucose 500 mg/dL (70-105)
[2022-10-07] MEDS ORDERED: Insulin Regular 300 UNITS/3 ML VIAL ONE (19:56)
== END 2022-10-07 22:58 | disposition home or self-care (01) ==
LOC: ERS 17:22
DX: R60.9 Edema, unspecified (principal); E11.65 Type 2 diabetes mellitus with hyperglycemia; E11.40 Type 2 diabetes mellitus with diabetic neuropathy, unspecified; Z79.4 Long term (current) use of insulin; I11.0 Hypertensive heart disease with heart failure; I50.9 Heart failure, unspecified
CPT/HCPCS: 36415; 36416; 71045; 80053; 81003; 83880; 84484; 85025; 93970; 96374; J1815

== ENCOUNTER 2023-01-08 08:27 | Emergency (ER) | payer BC ==
[2023-01-08] MEDS ORDERED: Fluorescein Opthalmic Strip ONE (09:28)
[2023-01-08] MEDS ORDERED: Proparacaine 0.5% Opth 15 ML BOT ONE (09:28)
== END 2023-01-08 10:57 | disposition home or self-care (01) ==
LOC: ERS 08:27
DX: T15.92XA Foreign body on external eye, part unspecified, left eye, initial encounter (principal); I11.0 Hypertensive heart disease with heart failure; I50.9 Heart failure, unspecified; E11.40 Type 2 diabetes mellitus with diabetic neuropathy, unspecified; Z79.899 Other long term (current) drug therapy; Z79.84 Long term (current) use of oral hypoglycemic drugs
CPT/HCPCS: 99283

== ENCOUNTER 2023-02-04 15:55 | Inpatient (IN) | payer BC ==
[~2023-02-04 15:55] MED LIST changes: -ISOVUE-370 76%-LOCM 1 ML ONE; +Iopamidol-370 76% 500 ML MDV (1 ML CHARGE) ONE
[2023-02-04] MEDS ORDERED: Vancomycin 1 GM/200 ML (FROZEN) BAG ONE (16:35)
[2023-02-04] MEDS ORDERED: Cefepime 2 GM VIAL ONE (16:35)
[2023-02-04 16:56] LABS: #Eosinphils 0.1 thou/uL (0.0-0.7); #Lymphocytes 3.2 thou/uL (1.20-3.40); #Monocytes 0.6 thou/uL (0.11-0.59); #Neutrophils 6.1 thou/uL (1.40-6.50); %Basophils 0.4 % (0.0-1.0); %Eosinophils 1.1 % (0.0-10.0); %Lymphocytes 31.6 % (21.0-51.0); %Monocytes 6.1 % (0.0-10.0); %Neutrophils 60.8 % (42.0-75.0); Hemoglobin 13.5 g/dL (12.0-16.0); Mean Corpuscular HGB CONC 32.4 g/dL (32.0-36.0); Mean Corpuscular Hemoglobin 29.4 pg (27.0-31.0); Mean Corpuscular Volume 90.9 fl (78.0-98.0); Mean Platelet Volume 8.9 fL (7.4-10.4); Platelet Count 247 10x3/uL (130-400); RBC Distribution Width 12.5 % (11.5-14.5); Red Blood Cell (RBC) Count 4.57 mill/uL (4.20-5.40); White Blood Cell (WBC) Count 10.1 10x3/uL (4.8-10.8)
[2023-02-04 17:08] LABS: PTT 24.2 sec (22.9-36.1); Prothrombin Time 13.4 sec (12.0-14.7)
[2023-02-04 17:18] LABS: ALT (SGPT) 11 U/L (8-55); AST (SGOT) 7 U/L (5-34); Albumin 3.5 g/dL (3.5-5.0); Alkaline Phosphatase 90 U/L (40-110); Anion Gap 12 mmol/L (10-20); BUN (Urea Nitrogen) 12 mg/dL (7.0-18.7); Bilirubin, Total 0.4 mg/dL (0.2-1.2); Calc. Creatinine Clearance 0 mL/min (70-130); Calcium 8.8 mg/dL (7.8-10.44); Carbon Dioxide 22 mmol/L (22-29); Chloride 101 mmol/L (98-107); Estimated GFR 57; Globulin 2.8 g/dL (2.4-3.5); Potassium 4.1 mmol/L (3.5-5.1); Protein, Total 6.3 g/dL (6.0-8.3); Sodium 131 mmol/L (136-145)
[2023-02-04 17:25] LABS: Glucose 479 mg/dL (70-105)
[2023-02-04 19:40] LABS: Lactic Acid 1.7 mmol/L (0.5-2.2)
[2023-02-04] MEDS ORDERED: Ketorolac Tromethamine 30 MG/ML VIAL ONE (19:51)
[2023-02-04 21:22] LABS: Bilirubin Negative (Negative); Blood, Urine Negative (Negative); Clarity Clear (Clear); Glucose, Urine (Dipstick) Greater than 1000 mg/dL (Negative); Ketone, Urine Negative (Negative); Leukocyte Negative Leu/uL (Negative); Nitrite Negative (Negative); Protein, Urine (Dipstick) Negative (Neg-Trace); Specific Gravity, Urine 1.039 (1.002-1.036); Urobilinogen Normal mg/dL (Less than 2)
[2023-02-04] MEDS ORDERED: Senokot S 8.6-50 MG TAB PO PRN (21:35)
[2023-02-04] MEDS ORDERED: Acetaminophen 325 MG TAB PO PRN (21:35)
[2023-02-04] MEDS ORDERED: Ondansetron ODT 4 MG TAB PO PRN (21:35)
[2023-02-04] MEDS ORDERED: Ondansetron PF 4 MG/2 ML Vial IVP PRN (21:35)
[2023-02-04] MEDS ORDERED: Dextrose 50% Abboject 50 ML SYRINGE SLOW IVP PRN (21:40)
[2023-02-04] MEDS ORDERED: Dextrose 5% in Water 1,000 ML IV PRN (21:40)
[2023-02-04] MEDS ORDERED: Morphine 4 MG/ML VIAL ONE (22:03)
[2023-02-04] MEDS ORDERED: Ondansetron PF 4 MG/2 ML Vial ONE (22:04)
[2023-02-04 23:18] VITALS: BMI 38.9
[2023-02-04] MEDS: Sodium Chloride 0.9% 1,000 ML IV SCH (23:33)
[2023-02-04] MEDS: HumaLOG 300 UNITS/3 ML VIAL SC PRN (23:34)
[2023-02-04] MEDS: VANCOMYCIN 1.75 GM/500 ML BAG 1.75 GM in Premix Bag 1 BAG IVPB SCH (23:34)
[2023-02-05] MEDS: ALPRAZolam 1 MG TAB PO PRN ×2 (00:14→21:02)
[2023-02-05] MEDS: Cefepime 2 GM in Sodium Chloride 0.9% 100 ML IVPB SCH ×2 (05:56→17:15)
[2023-02-05] MEDS: HumaLOG 300 UNITS/3 ML VIAL SC PRN ×2 (05:56→21:04)
[2023-02-05] MEDS: Cyclobenzaprine 10 MG TAB PO PRN (06:10)
[2023-02-05 07:28] LABS: #Eosinphils 0.1 thou/uL (0.0-0.7); #Lymphocytes 2.4 thou/uL (1.20-3.40); #Monocytes 0.4 thou/uL (0.11-0.59); #Neutrophils 3.7 thou/uL (1.40-6.50); %Basophils 0.4 % (0.0-1.0); %Eosinophils 2.1 % (0.0-10.0); %Monocytes 6.1 % (0.0-10.0); %Neutrophils 55.4 % (42.0-75.0); Hemoglobin 11.9 g/dL (12.0-16.0); Mean Corpuscular Hemoglobin 29.2 pg (27.0-31.0); Mean Corpuscular Volume 91.4 fl (78.0-98.0); Mean Platelet Volume 8.5 fL (7.4-10.4); Platelet Count 239 10x3/uL (130-400); RBC Distribution Width 12.4 % (11.5-14.5); Red Blood Cell (RBC) Count 4.08 mill/uL (4.20-5.40); White Blood Cell (WBC) Count 6.6 10x3/uL (4.8-10.8)
[2023-02-05 07:48] LABS: ALT (SGPT) 10 U/L (8-55); AST (SGOT) 5 U/L (5-34); Alkaline Phosphatase 75 U/L (40-110); Anion Gap 7 mmol/L (10-20); BUN (Urea Nitrogen) 13 mg/dL (7.0-18.7); Bilirubin, Total 0.5 mg/dL (0.2-1.2); Calc. Creatinine Clearance 155 mL/min (70-130); Calcium 8.4 mg/dL (7.8-10.44); Carbon Dioxide 26 mmol/L (22-29); Chloride 105 mmol/L (98-107); Estimated GFR 89; Globulin 2.6 g/dL (2.4-3.5); Glucose 280 mg/dL (70-105); Potassium 3.9 mmol/L (3.5-5.1); Protein, Total 5.6 g/dL (6.0-8.3); Sodium 134 mmol/L (136-145)
[2023-02-05] MEDS: Famotidine 20 MG TAB PO SCH ×2 (09:42→21:02)
[2023-02-05] MEDS: Aspirin 81 mg Enteric Coated Tablet PO SCH (09:43)
[2023-02-05] MEDS: Gabapentin 300 MG CAP PO SCH ×3 (09:43→21:01)
[2023-02-05] MEDS: HYDROcodone/Acetaminophen 5/325 mg Tablet PO PRN ×2 (09:43→18:24)
[2023-02-05] MEDS: Insulin Glargine 30 UNITS/0.3 ML VIAL SC SCH (09:44)
[2023-02-05] MEDS: Sodium Chloride 0.9% 1,000 ML IV SCH (10:08)
[2023-02-05] MEDS: VANCOMYCIN 1.75 GM/500 ML BAG 1.75 GM in Premix Bag 1 BAG IVPB SCH (12:14)
[2023-02-05] MEDS: Doxepin HCl 25 MG CAP PO SCH (21:02)
[2023-02-05] MEDS: Atorvastatin Calcium 40 MG TAB PO SCH (21:02)
[2023-02-06] MEDS: VANCOMYCIN 1.75 GM/500 ML BAG 1.75 GM in Premix Bag 1 BAG IVPB SCH ×2 (00:06→12:21)
[2023-02-06] MEDS: Cefepime 2 GM in Sodium Chloride 0.9% 100 ML IVPB SCH ×2 (05:45→18:15)
[2023-02-06] MEDS: HumaLOG 300 UNITS/3 ML VIAL SC PRN ×3 (05:45→18:16)
[2023-02-06] MEDS: Insulin Glargine 30 UNITS/0.3 ML VIAL SC SCH (09:16)
[2023-02-06] MEDS: Furosemide 20 MG TAB PO SCH (09:16)
[2023-02-06] MEDS: Gabapentin 300 MG CAP PO SCH ×3 (09:16→20:24)
[2023-02-06] MEDS: Aspirin 81 mg Enteric Coated Tablet PO SCH (09:17)
[2023-02-06] MEDS: Spironolactone 25 MG TAB PO SCH (09:17)
[2023-02-06] MEDS: Bacitracin 1 PK TOP SCH ×2 (09:17→20:25)
[2023-02-06] MEDS: Famotidine 20 MG TAB PO SCH ×2 (09:17→20:25)
[2023-02-06 11:31] LABS: Vancomycin, Trough 17.9 ug/mL
[2023-02-06] MEDS: Bisacodyl 5 MG TAB PO PRN (15:27)
[2023-02-06] MEDS ORDERED: Insulin Glargine 30 UNITS/0.3 ML VIAL SC SCH (17:15)
[2023-02-06] MEDS: Doxepin HCl 25 MG CAP PO SCH (20:25)
[2023-02-06] MEDS: Atorvastatin Calcium 40 MG TAB PO SCH (20:25)
[2023-02-06] MEDS: Cyclobenzaprine 10 MG TAB PO PRN (20:34)
[2023-02-07] MEDS: ALPRAZolam 1 MG TAB PO PRN ×2 (00:06→20:34)
[2023-02-07] MEDS: VANCOMYCIN 1.75 GM/500 ML BAG 1.75 GM in Premix Bag 1 BAG IVPB SCH ×2 (00:07→12:24)
[2023-02-07] MEDS: Cefepime 2 GM in Sodium Chloride 0.9% 100 ML IVPB SCH ×2 (04:37→18:41)
[2023-02-07] MEDS: HumaLOG 300 UNITS/3 ML VIAL SC PRN ×3 (04:41→20:38)
[2023-02-07 07:12] LABS: #Eosinphils 0.1 thou/uL (0.0-0.7); #Lymphocytes 2.4 thou/uL (1.20-3.40); #Monocytes 0.4 thou/uL (0.11-0.59); #Neutrophils 2.9 thou/uL (1.40-6.50); %Basophils 0.3 % (0.0-1.0); %Eosinophils 2.4 % (0.0-10.0); %Lymphocytes 40.6 % (21.0-51.0); %Monocytes 7.3 % (0.0-10.0); %Neutrophils 49.4 % (42.0-75.0); Hemoglobin 12.3 g/dL (12.0-16.0); Mean Corpuscular HGB CONC 31.3 g/dL (32.0-36.0); Mean Corpuscular Hemoglobin 28.4 pg (27.0-31.0); Mean Corpuscular Volume 90.7 fl (78.0-98.0); Mean Platelet Volume 8.8 fL (7.4-10.4); Platelet Count 273 10x3/uL (130-400); RBC Distribution Width 12.3 % (11.5-14.5); Red Blood Cell (RBC) Count 4.34 mill/uL (4.20-5.40); White Blood Cell (WBC) Count 5.9 10x3/uL (4.8-10.8)
[2023-02-07 07:32] LABS: Anion Gap 12 mmol/L (10-20); BUN (Urea Nitrogen) 14 mg/dL (7.0-18.7); Calc. Creatinine Clearance 157 mL/min (70-130); Calcium 8.5 mg/dL (7.8-10.44); Carbon Dioxide 21 mmol/L (22-29); Chloride 108 mmol/L (98-107); Estimated GFR 90; Glucose 198 mg/dL (70-105); Potassium 3.9 mmol/L (3.5-5.1); Sodium 137 mmol/L (136-145)
[2023-02-07] MEDS ORDERED: Insulin Glargine 30 UNITS/0.3 ML VIAL SC SCH ×2 (09:00→16:30)
[2023-02-07] MEDS: Spironolactone 25 MG TAB PO SCH (09:03)
[2023-02-07] MEDS: Furosemide 20 MG TAB PO SCH (09:03)
[2023-02-07] MEDS: Aspirin 81 mg Enteric Coated Tablet PO SCH (09:04)
[2023-02-07] MEDS: Famotidine 20 MG TAB PO SCH ×2 (09:04→20:32)
[2023-02-07] MEDS: Gabapentin 300 MG CAP PO SCH ×3 (09:04→20:32)
[2023-02-07] MEDS: Bacitracin 1 PK TOP SCH ×2 (09:04→20:32)
[2023-02-07] MEDS: Bisacodyl 5 MG TAB PO PRN (18:47)
[2023-02-07] MEDS: Atorvastatin Calcium 40 MG TAB PO SCH (20:32)
[2023-02-07] MEDS: HYDROcodone/Acetaminophen 5/325 mg Tablet PO PRN (20:33)
[2023-02-07] MEDS: Cyclobenzaprine 10 MG TAB PO PRN (20:33)
[2023-02-07] MEDS: Doxepin HCl 25 MG CAP PO SCH (20:34)
[2023-02-07 23:32] LABS: Vancomycin, Trough 16.9 ug/mL
[2023-02-08] MEDS: VANCOMYCIN 1.75 GM/500 ML BAG 1.75 GM in Premix Bag 1 BAG IVPB SCH ×2 (00:02→11:49)
[2023-02-08] MEDS: Cefepime 2 GM in Sodium Chloride 0.9% 100 ML IVPB SCH (05:59)
[2023-02-08] MEDS: HumaLOG 300 UNITS/3 ML VIAL SC PRN ×2 (06:14→11:48)
[2023-02-08 07:42] LABS: #Eosinphils 0.1 thou/uL (0.0-0.7); #Monocytes 0.3 thou/uL (0.11-0.59); #Neutrophils 2.7 thou/uL (1.40-6.50); %Basophils 0.2 % (0.0-1.0); %Lymphocytes 38.4 % (21.0-51.0); %Monocytes 6.1 % (0.0-10.0); %Neutrophils 53.3 % (42.0-75.0); Hemoglobin 12.4 g/dL (12.0-16.0); Mean Corpuscular HGB CONC 32.2 g/dL (32.0-36.0); Mean Corpuscular Hemoglobin 29.5 pg (27.0-31.0); Mean Corpuscular Volume 91.5 fl (78.0-98.0); Mean Platelet Volume 8.5 fL (7.4-10.4); Platelet Count 279 10x3/uL (130-400); RBC Distribution Width 12.3 % (11.5-14.5); Red Blood Cell (RBC) Count 4.21 mill/uL (4.20-5.40); White Blood Cell (WBC) Count 5.1 10x3/uL (4.8-10.8)
[2023-02-08 08:01] LABS: Anion Gap 14 mmol/L (10-20); BUN (Urea Nitrogen) 15 mg/dL (7.0-18.7); Calc. Creatinine Clearance 121 mL/min (70-130); Calcium 8.9 mg/dL (7.8-10.44); Carbon Dioxide 22 mmol/L (22-29); Chloride 105 mmol/L (98-107); Estimated GFR 66; Glucose 332 mg/dL (70-105); Potassium 4.6 mmol/L (3.5-5.1); Sodium 136 mmol/L (136-145)
[2023-02-08] MEDS ORDERED: Insulin Glargine 30 UNITS/0.3 ML VIAL SC SCH ×2 (09:00)
[2023-02-08] MEDS: Gabapentin 300 MG CAP PO SCH ×2 (09:03→14:51)
[2023-02-08] MEDS: Furosemide 20 MG TAB PO SCH (09:03)
[2023-02-08] MEDS: Spironolactone 25 MG TAB PO SCH (09:03)
[2023-02-08] MEDS: Famotidine 20 MG TAB PO SCH (09:04)
[2023-02-08] MEDS: Aspirin 81 mg Enteric Coated Tablet PO SCH (09:04)
[2023-02-08] MEDS: Bacitracin 1 PK TOP SCH (09:09)
[2023-02-08] MEDS: HYDROcodone/Acetaminophen 5/325 mg Tablet PO PRN (11:46)
[2023-02-08] MEDS ORDERED: HYDROcodone/Acetaminophen 10/325 mg Tablet PO PRN (11:53)
[2023-02-08] MEDS: Cyclobenzaprine 10 MG TAB PO PRN (14:56)
[2023-02-08 17:42] VITALS: BP 119/76; TEMP 97.9
== END 2023-02-08 17:55 | disposition home or self-care (01) | DRG 607 ==
LOC: SUATTDRO 15:55 → ERS 15:55 → T4-A 21:40
PROVIDERS: ADMIT Internal Medicine; ATTEND Internal Medicine
DX: L73.8 Other specified follicular disorders (principal); E87.1 Hypo-osmolality and hyponatremia; N17.9 Acute kidney failure, unspecified; E11.65 Type 2 diabetes mellitus with hyperglycemia; E78.5 Hyperlipidemia, unspecified; N18.2 Chronic kidney disease, stage 2 (mild); E66.01 Morbid (severe) obesity due to excess calories; B95.8 Unspecified staphylococcus as the cause of diseases classified elsewhere; I12.9 Hypertensive chronic kidney disease with stage 1 through stage 4 chronic kidney disease, or unspecified chronic kidney disease; E11.22 Type 2 diabetes mellitus with diabetic chronic kidney disease; Z88.1 Allergy status to other antibiotic agents; Z88.2 Allergy status to sulfonamides; Z91.018 Allergy to other foods; Z79.899 Other long term (current) drug therapy; Z79.82 Long term (current) use of aspirin; Z79.84 Long term (current) use of oral hypoglycemic drugs; Z68.38 Body mass index [BMI] 38.0-38.9, adult
CPT/HCPCS: 36415; 36416; 71045; 80048; 80053; 80202; 81003; 83605; 83880; 84484; 85025; 85610; 85730; 86140; 87040; 87081; 87086; 93005; 96365; 96366; 96375; 97139; J0692; J1650; J1815; J1885; J2270; J2405; J3370; J3370-JW; J3490; J7050; Q0162; Q9967

== ENCOUNTER 2023-03-14 16:28 | Emergency (ER) | payer BC ==
[2023-03-14] MEDS ORDERED: Acetaminophen 500 MG TAB ONE (19:00)
== END 2023-03-14 19:12 | disposition home or self-care (01) ==
LOC: ERS 16:28
DX: L02.213 Cutaneous abscess of chest wall (principal); I11.0 Hypertensive heart disease with heart failure; I50.9 Heart failure, unspecified; E11.40 Type 2 diabetes mellitus with diabetic neuropathy, unspecified; Z79.899 Other long term (current) drug therapy; Z79.84 Long term (current) use of oral hypoglycemic drugs
CPT/HCPCS: 36416

== ENCOUNTER 2024-04-10 04:33 | Emergency (ER) | payer BC, OTHER ==
[2024-04-10] MEDS ORDERED: HYDROcodone/Acetaminophen 5/325 mg Tablet ONE (05:53)
== END 2024-04-10 06:00 | disposition home or self-care (01) ==
LOC: ERS 04:33
DX: Z48.817 Encounter for surgical aftercare following surgery on the skin and subcutaneous tissue (principal); L76.22 Postprocedural hemorrhage of skin and subcutaneous tissue following other procedure; I11.0 Hypertensive heart disease with heart failure; I50.9 Heart failure, unspecified; E11.40 Type 2 diabetes mellitus with diabetic neuropathy, unspecified; Z87.891 Personal history of nicotine dependence
CPT/HCPCS: 99282

== ENCOUNTER 2025-10-23 19:56 | Emergency (ER) | payer BC, MEDICAID ==
[2025-10-23 21:28] LABS: #Basophils 0.05 10x3/uL (0.0-0.2); #Eosinophils 0.13 10x3/uL (0.0-0.7); #Monocytes 0.86 10x3/uL (0.11-0.59); #Neutrophils 8.43 10x3/uL (1.40-6.50); %Basophils 0.4 % (0.0-1.0); %Eosinophils 1.0 % (0.0-10.0); %Lymphocytes 29.5 % (21.0-51.0); %Monocytes 6.4 % (0.0-10.0); %Neutrophils 62.3 % (42.0-75.0); Hematocrit 29.6 % (36.0-47.0); Hemoglobin 9.2 g/dL (12.0-16.0); Mean Corpuscular Hemoglobin 26.9 pg (27.0-31.0); Mean Corpuscular Volume 86.5 fL (78.0-98.0); Platelet Count 223 10x3/uL (130-400); Red Blood Cell (RBC) Count 3.42 mill/uL (4.20-5.40); White Blood Cell (WBC) Count 13.51 10x3/uL (4.8-10.8)
[2025-10-23 21:44] LABS: ALT (SGPT) 14 U/L (Less than 34); AST (SGOT) 14 U/L (11-34); Albumin 3.7 g/dL (3.1-4.5); Alkaline Phosphatase 158 U/L (40-110); Anion Gap 15 mmol/L (10-20); BUN (Urea Nitrogen) 16 mg/dL (7.0-18.7); Bilirubin, Total 0.7 mg/dL (0.3-1.2); Calc. Creatinine Clearance 0 mL/min (70-130); Calcium 9.6 mg/dL (7.8-10.44); Carbon Dioxide 22 mmol/L (22-29); Chloride 101 mmol/L (98-107); Globulin 3.6 g/dL (2.4-3.5); Glucose 344 mg/dL (70-105); Potassium 4.2 mmol/L (3.5-5.1); Sodium 134 mmol/L (136-145)
[2025-10-23] MEDS ORDERED: HYDROcodone/Acetaminophen 10/325 mg Tablet ONE (22:51)
[2025-10-23] MEDS ORDERED: Ketorolac Tromethamine 30 MG (1 mL) VIAL ONE (22:51)
[2025-10-24] MEDS ORDERED: Ketorolac Tromethamine 30 MG (1 mL) VIAL ONE (00:26)
== END 2025-10-24 00:46 | disposition home or self-care (01) ==
LOC: ERS 19:56
DX: R07.2 Precordial pain (principal); I11.0 Hypertensive heart disease with heart failure; I50.9 Heart failure, unspecified; E11.40 Type 2 diabetes mellitus with diabetic neuropathy, unspecified; E78.5 Hyperlipidemia, unspecified; Z79.899 Other long term (current) drug therapy; Z79.84 Long term (current) use of oral hypoglycemic drugs; Z79.4 Long term (current) use of insulin
CPT/HCPCS: 71045; 80053; 83880; 84484; 85025; 87428; 93005; 94760; 96372; J1885